=== PATIENT | female | born 1970 | race Caucasian/White ===

== ENCOUNTER 2023-08-21 06:39 | Day surgery (SDC) | payer OTHER, SELFPAY ==
[2023-08-06 08:28] VITALS: BMI 32.8
[2023-08-06 13:21] VITALS: BMI 32.9
[2023-08-21 07:15] VITALS: BP 126/95; PULSE 71; RESP 20; TEMP 36.7; O2SAT 100
--- NOTE | 2023-08-21 07:22 | PM.HPGS ---
History of Present Illness History of Present Illness Consent: Risks, benefits, and alternatives have been discussed and questions answered. Patient agrees to proceed with procedure. Chief complaint: positive cologuard test Narrative: Crystal York is a 53 year old female presents for screening colonoscopy. Patient recently found to have positive Cologuard test. Patient denies abdominal pain. She has had no bleeding. Family history noncontributory. Review of Systems Review of Systems: Review of systems noncontributory. [facility] Family History Family History Sibling Patient's brother is in good health Mother Family history of liver disease, Onset Age: 57 Patient's mother is , Onset Age: 57 Father Patient's father is , Onset Age: 38 Social History Social History Smoking status: Never smoker Second hand tobacco smoke exposure: No Alcohol intake: current Alcohol use details: glass of wine daily Substance use: never Substance use type: does not use Lack of Transportation: No Lack of Food: Never True Current Housing: I Have Housing Concerned About Future Housing: No Difficulty Paying Gas/Electric Bills: No Difficulty Paying for Meds: No Currently Unemployed: No Education: Bachelor's Degree Difficulty w/ Childcare or Family Care: No Living arrangements: with family Spiritual care concerns: No Meds Home Medications and Allergies Home Medications Medication Instructions Recorded Confirmed Type No Home Medications 08/06/23 08/06/23 History Allergies Allergy/AdvReac Type Severity Reaction Status Date / Time Penicillins Allergy Intermediate rash and Verified 08/06/23 13:19 itching Exam Narrative: Physical exam reveals patient to be alert. Vital signs stable. HEENT exam is unremarkable. Patient is anicteric. Lungs are clear to auscultation and to percussion. Heart is without murmur or extra sounds. Abdomen sounds are present soft nontender with no organomegaly. Digital external rectal exam normal. Assessment and Plan Assessment and plan (1) Positive colorectal cancer screening using Cologuard test: Code(s): R19.5 - Other fecal abnormalities Status: Acute Assessment and Plan: Patient with positive Cologuard test. For this reason screening colonoscopy will be performed. This report follows separately.
--- NOTE | 2023-08-21 07:29 | WPDANESEPPF ---
Anes - Initial Pre Proc Eval Procedure: Operation Date: 08/21/23 08:30 Proposed Procedures p Diagnostic Colonoscopy - Dru Casiano MD Date/Time: 08/21/23 07:29 Surgeon: Dru Casiano MD Pre Op Diagnosis: positive cologuard test Patient Data Age: 53 Gender: F Height: 1.63 m Weight: 87 kg Allergies Allergy/AdvReac Type Severity Reaction Status Date / Time Penicillins Allergy Intermediate rash and Verified 08/06/23 13:19 itching Home Medications Medication Instructions Recorded Confirmed Type No Home Medications 08/06/23 08/06/23 History Patient hx anesthesia problems: none Family hx anesthesia problems: none Results Review: All pre-operative results and documents have been reviewed as part of the pre-operative evaluation. [facility] Past Medical History Medical History (Updated 08/21/23 @ 07:29 by Karsten Briceno MD) Obesity Family History Family History Sibling Patient's brother is in good health Mother Family history of liver disease, Onset Age: 57 Patient's mother is , Onset Age: 57 Father Patient's father is , Onset Age: 38 Social History Social History Smoking status: Never smoker Second hand tobacco smoke exposure: No Alcohol intake: current Alcohol use details: glass of wine daily Substance use: never Substance use type: does not use Lack of Transportation: No Lack of Food: Never True Current Housing: I Have Housing Concerned About Future Housing: No Difficulty Paying Gas/Electric Bills: No Difficulty Paying for Meds: No Currently Unemployed: No Education: Bachelor's Degree Difficulty w/ Childcare or Family Care: No Living arrangements: with family Spiritual care concerns: No Anes - Eval Final PreProcedure Day of Procedure 08/21/23 07:29 Patient weight: obese Heart: regular rate and rhythm Lungs: clear to auscultation Airway: Mallampati scale class II Neurological: alert and oriented Last oral intake: >/= 8 hours ASA classification: II Emergent: no Anesthetic plan: proceed Anesthesia type and monitoring: general GIVS and standard monitoring Results Review: All pre-operative results and documents have been reviewed as part of the pre-operative evaluation. Informed Consent: The patient's anesthetic plan and its attendant risks and benefits were discussed with the patient/family/POA. Questions were solicited and answers provided to the satisfaction of the patient/family/POA.
[2023-08-21] MEDS: LACTATED RINGERS 1,000 ML 150 ML IV CONT (08:01)
[2023-08-21 08:57] VITALS: BP 122/70; PULSE 67; RESP 16; O2SAT 99
[2023-08-21 09:07] VITALS: BP 122/95; PULSE 58; RESP 16; O2SAT 100
[2023-08-21 09:17] VITALS: BP 112/84; PULSE 62; RESP 16; O2SAT 100
--- NOTE | 2023-08-21 09:26 | WPDANESPN ---
Anes - Prog Note Post-Op Date/Time: 08/21/23 09:26 Cardiovascular status: normal Respiratory status: normal Airway patency: baseline Mental status: baseline Post-Op hydration status: normal Vital Signs: Last Vital Signs Temp 36.7 C 08/21/23 07:15 Pulse 62 08/21/23 09:17 Resp 16 08/21/23 09:17 BP 112/84 08/21/23 09:17 Pulse Ox 100 08/21/23 09:17 O2 Del Method Room Air 08/21/23 09:17 Pain Score (VAS): 0/10 I/O: Intake & Output 08/20/23 08/21/23 08/21/23 23:59 07:59 15:59 Intake Total 550 Balance 550 Patient Feedback: Patient satisfied with anesthetic care.
== END 2023-08-21 09:32 | disposition home or self-care (01) ==
PROVIDERS: PCP Internal Medicine; Visit Provider Internal Medicine Gastroenterology
PROC: 0DJD8ZZ Inspection of Lower Intestinal Tract, Via Natural or Artificial Opening Endoscopic (ICD-10-PCS; CPT 45378; principal; 2023-08-21 08:30)
DX: R19.5 Other fecal abnormalities (principal); K57.30 Diverticulosis of large intestine without perforation or abscess without bleeding; K64.8 Other hemorrhoids
CPT/HCPCS: 45378

== ENCOUNTER 2024-02-04 08:50 | Emergency (ER) | payer OTHER, SELFPAY ==
--- NOTE | ~2024-02-04 | XR_ITS ---
XR chest 2V Ordering provider: Mike Powell APRN History: 53 years Female with . sob, cough 2 1/2 weeks, chest congestion . Comparison: None. FINDINGS: MEDIASTINUM: The cardiac silhouette is not enlarged. LUNGS: No effusions or pneumothorax. Opacification the right lung bases with prominent markings bilat erally suggestive of early pneumonia. OTHER: No free air under the diaphragm. IMPRESSION: Right basal pneumonia. Reviewed, dictated and finalized at location A. IMPRESSION: Right basal pneumonia.
[2024-02-04 09:00] VITALS: BP 130/81; PULSE 86; RESP 18; TEMP 36.4; O2SAT 98
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
== END 2024-02-04 09:39 | disposition home or self-care (01) ==
PROVIDERS: Emergency Provider Nurse Practitioner Family
DX: L73.9 Follicular disorder, unspecified (principal); J01.90 Acute sinusitis, unspecified; J18.9 Pneumonia, unspecified organism; E66.9 Obesity, unspecified; Z68.30 Body mass index [BMI] 30.0-30.9, adult
CPT/HCPCS: 71046; 99213; G0463

== ENCOUNTER 2024-07-05 09:36 | Emergency (ER) | payer OTHER, SELFPAY ==
[2024-07-05 10:03] VITALS: BP 128/84; PULSE 91; RESP 16; TEMP 36.8; O2SAT 99
--- NOTE | 2024-07-05 10:33 | ED.URI ---
HPI - URI/Sore Throat General Chief Complaint: Upper Respiratory Infection Stated Complaint: sinus symptoms Time Seen by Provider: 07/05/24 10:34 Source: patient and RN notes reviewed Mode of arrival: ambulatory Limitations: no limitations History of Present Illness HPI Narrative: 54 y/o female presented for c/o nasal congestion and drainage, and starting to go ?into the chest. ? Symptom onset 3 days. Denies shortness of breath, wheezing, nausea, vomiting, diarrhea, fevers or chills. Took a dose of Mucinex. She states ?I usually do not take meds because I do not like to. Reports concern for bronchitis. MD elicited complaint: cough Related Data Allergies Allergy/AdvReac Type Severity Reaction Status Date / Time Penicillins AdvReac Mild rash and Verified 07/05/24 10:33 itching Review of Systems Review of Systems: per HPI [facility] Past Medical History Medical History Obesity Family History Family History Sibling Patient's brother is in good health Mother Family history of liver disease, Onset Age: 57 Patient's mother is , Onset Age: 57 Father Patient's father is , Onset Age: 38 Social History Social History Smoking status: Never smoker Second hand tobacco smoke exposure: No Alcohol intake: current Alcohol use details: glass of wine daily Substance use: never Substance use type: does not use Lack of Transportation: No Lack of Food: Never True Current Housing: I Have Housing Concerned About Future Housing: No Difficulty Paying Gas/Electric Bills: No Difficulty Paying for Meds: No Currently Unemployed: No Education: Bachelor's Degree Difficulty w/ Childcare or Family Care: No Living arrangements: with family Spiritual care concerns: No Exam Narrative: GENERAL: well-appearing, nontoxic EYES: PERRLA, conjunctivae clear ENT: Mucous membranes moist. TMs pearly hamilton with dull light reflex bilaterally; no tragal tenderness. Oropharynx erythematous without lesions or exudate, no drooling, no hoarseness, no trismus, uvula midline. No tripod positioning, muffled voice, soft palate or pharyngeal wall bulging NECK: Supple. No lymphadenopathy CHEST: Clear to auscultation, breath sounds equal. HEART: Regular rate and rhythm. No murmur heard. SKIN: Warm, dry NEURO: Alert and oriented x3. PSYCH: Normal mood and affect Course Course Emergency Course: Patient is aware of diagnosis, understands and agrees to treatment plan. Anticipatory guidance given. Patient agrees to follow-up as directed and is aware of reasons to seek care at the emergency department. Portions of this record may have been created with voice recognition software Level of Care: Express Care Visit Vital Signs Vital signs: Vital Signs Temperature 98.2 F 07/05/24 10:03 Pulse Rate 91 07/05/24 10:03 Respiratory Rate 16 07/05/24 10:03 Blood Pressure 128/84 07/05/24 10:03 Pulse Oximetry 99 07/05/24 10:03 Temperature 98.2 F 07/05/24 10:03 Pulse Rate 91 07/05/24 10:03 Respiratory Rate 16 07/05/24 10:03 Blood Pressure 128/84 07/05/24 10:03 Pulse Oximetry 99 07/05/24 10:03 reviewed MDM - URI/Sore Throat MDM Narrative Medical decision making narrative: Discussed physical exam findings, negative flu and COVID. Patient is very concerned for bronchitis. Rx steroid sent. Advised follow-up with PCP.. Advised supportive measures and signs/symptoms to go to the ER. Pt is appropriate for outpt treatment and f/u. Differential Diagnosis Differential diagnosis: Likely upper respiratory infection, sinusitis, viral infection, bronchitis, influenza and pharyngitis Discharge Plan Discharge Clinical Impression: Upper respiratory infection Patient Disposition: Home, Self-Care Condition: Stable Instructions: Upper Respiratory Infection (ED) Additional Instructions: Flu and COVID negative. If symptoms are due to viral illness, it cannot be treated with an antibiotic. Viral illnesses can last 10-14 days. Recommendations: Flonase spray and Zyrtec (or Claritin/Alejandra) over the counter Cough syrup may cause drowsiness; avoid driving or take it at night time. Tylenol 1000mg every 8 hours as needed for pain Symptomatic treatment includes: rest, fluids, and increase humidity of the air at home. Follow up with your primary care provider in 1 week. Go to the ER for worsening symptoms or concerns. Patient Language: Sami Prescriptions: New methylprednisolone [Medrol (Santiago)] 4 mg tablets,dose pack See Rx Instructions .ROUTE .COMPLEX Qty: 21 0RF Rx Instructions: orally per package directions No Action doxycycline monohydrate 100 mg capsule 100 mg PO BID 7 Days Qty: 14 0RF albuterol sulfate 90 mcg/actuation HFA aerosol inhaler 2 puff inhalation Q4-6H PRN (Reason: shortness of breath or wheezing) 30 Days Qty: 8.5 0RF cefpodoxime 200 mg tablet 200 mg PO BID 7 Days Qty: 14 0RF Rx Instructions: must administer with a meal/food prednisone 20 mg tablet 40 mg PO DAILY 5 Days Qty: 10 0RF Follow-up/Referrals: Molina,Geovany Lewis DO [Primary Care Provider] - Time of Disposition: 10:42
[2024-07-05 10:36] LABS: EDCOVIDSCREEN Negative (Negative); EDINFLUASCREEN Negative (Negative); EDINFLUBSCREEN Negative (Negative)
[2024-07-05 10:36] LABS: EDCOVIDSCREEN Negative (Negative); EDINFLUASCREEN Negative (Negative); EDINFLUBSCREEN Negative (Negative)
--- OUTSIDE RECORDS SUMMARY | 2024-07-12 05:28 | XMS_ITS | Clinical Summary ---
Author Organization [facility] Address [address] [place] [address]. [place], [place] [id number] [place] [id number] Care Team Providers Care Extractor And Wringer Operator Name Role Phone Geovany Auguste MD Primary Care Provider Allergies Active Allergy Reactions Criticality Noted Date Comments Penicillins Hives Low 06/03/2012 Medications vitamin D3, cholecalciferol , 1000 UNIT Tab tablet Take 1 tablet by mouth daily. Active ELDERBERRY OR Take 1 capsule by mouth daily. Active BLACK COHOSH COMPOUND OR Take 1 capsule by mouth daily. Active Active Problems Problem Noted Date Diagnosed Date Abnormal uterine bleeding 11/04/2020 Immunizations Name Administration Dates Next Due Dtap (Generic) 07/25/2020 Influenza Adult (Generic) 07/25/2020 MODERNA COVID-19 (12+) MRNA, LNP-S, PF, 100 MCG/ 0.5 ML DOSE 09/01/2020,07/28/2020 Family History Medical History Relation Comments No Known Problems Brother Alcohol/Drug Mother Relation Status Comments Brother Alive Father Mother Social History Tobacco Use Types Packs/Day Years Used Date Smoking Tobacco: Former Cigarettes 0.5 31 1 987 - 2017 Smokeless Tobacco: Never Alcohol Use Standard Drinks/Week Comments Yes 0 (1 standard drink = 0.6 oz pur e alcohol) 1 glass wine daily Humiliation, Afraid, Rape, and Kick questionnair e Answer Date Recorded Within the last year, have y ou been afraid of your partner or ex-partner? Patient declined 10/28/2020 Within the last year, have y ou been humiliated or emotionally abused in other ways by your partner or ex-partner? Patient declined 10/28/2020 Within the last year, have y ou been kicked, hit, slapped, or otherwise physically hurt by your partner or ex-partner? Patient declined 10/28/2020 Within the last year, have y ou been raped or forced to have any kind of sexual activity by your partner or ex-partner? Patient declined 10/28/2020 Social Connection and Isolation Panel [NHANES] A nswer Date Recorded In a typical week, how many times do you talk on the phone with family, friends, or neighbors? Patient declined 10/28/2020 How often do you get togethe r with friends or relatives? Patient declined 10/28/2020 How often do you attend taoist or hinduism serv ices? Patient declined 10/28/2020 Do you belong to any clubs o r organizations such as taoist groups, unions, fraternal or athletic groups, or school groups? Patient declined 10/28/2020 How often do you attend meet ings of the clubs or organizations you belong to? Patient declined 10/28/2020 Are you , , di vorced, , never , or living with a partner? Patient declined 10/28/2020 AUDIT-C Answer Date Recorded Q1: How often do you have a drink containing alc ohol? 2-3 times a week 09/05/2020 Q2: How many drinks containi ng alcohol do you have on a typical day when you are drinking? 3 or 4 09/05/2020 Q3: How often do you have si x or more drinks on one occasion? Never 09/05/2020 Overall Financial Resource Strain (CARDIA) Answe r Date Recorded How hard is it for you to pa y for the very basics like food, housing, medical care, and heating? Not hard at all 10/28/2020 PHQ-2 Answer Date Recorded PHQ-2 Score - If the patient scores above 3, please move on to questions 3-9 0 09/05/2020 [facility] - Occupational Stress Questionnaire Answer Date Recorded Do you feel stress - tense, restless, nervous, or anxious, or unable to sleep at night because your mind is troubled all the time - these days? Not at all 10/28/2020 Exercise Vital Sign Answer Date Recorde d On average, how many days pe r week do you engage in moderate to strenuous exercise (like a brisk walk)? 3 days 10/28/2020 On average, how many minutes do you engage in exercise at this level? 60 min 10/28/2020 Hunger Vital Sign Answer Date Recorded Within the past 12 months, y ou worried that your food would run out before you got the money to buy more. Never true 10/29/19 21 Within the past 12 months, t he food you bought just didn't last and you didn't have money to get more. Never true 10/28/2020 PRAPARE - Transportation Answer Date Re corded In the past 12 months, has l ack of transportation kept you from medical appointments or from getting medications? No 10/07 In the past 12 months, has l ack of transportation kept you from meetings, work, or from getting things needed for daily living? No 10/28/2020 Comments No Sex and Gender Information Value Date Recorded Sex Assigned at Not on file Legal Sex Female 6:16 PM CDT Gender Identity Not on file Sexual Orientation Not on file Last Filed Vital Signs Vital Sign Reading Time Taken Comments Blood Pressure 124/72 12/23/2020 7:34 AM CDT Pulse 72 12/23/2020 7:34 AM CDT Temperature 36.4 ??C (97.5 ??F) 12/23/2020 7:34 AM CD T Respiratory Rate 16 12/23/2020 7:34 AM CDT Oxygen Saturation 98% 12/23/2020 7:34 AM CDT Inhaled Oxygen Concentration - - Weight 77.2 kg (170 lb 3.2 oz) 12/23/2020 7:34 A M CDT Height 162.6 cm (5' 4 ) 12/23/2020 7:34 AM CDT Body Mass Index 29.21 12/23/2020 7:34 AM CDT Plan of Treatment Health Maintenance Due Date Last Done Comments Colorectal Cancer Screening Colonoscopy (10 Years) 1971 Hepatitis C 1989 Hepatitis B Vaccines (1 of 3 - 19+ 3-dose series) 1990 Cervical Cancer Screening Samm simms with HPV Testing (Age 30 to 64) Every 5 Years 2001 Cervical Cancer Screening Pa p Smear (Age 30 to 64) Every 3 Years 03/03/2017 03/03/2014 Cervical Cancer Screening wi th HPV 03/03/2017 Zoster Vaccines (1 of 2) 2021 Annual Physical 09/05/2021 09/05/2020, 09/05/2020 COVID-19 Vaccine (3 - 2023-2 5 season) 2024 09/01/2020, 07/28/2020 Influenza Adult (#1) 2024 07/25/2020 Mammogram Screening 10/05/2024 10/05/2022 DTaP, Tdap and Td Vaccines ( 2 - Tdap) 07/25/2030 07/25/2020 Meningococcal Vaccine Aged Out No mckay wali eligible based on patient's age to complete this topic Pneumococcal Vaccine: Pediatrics (0 to 5 Years) and At-Risk Patients (6 to 64 Years) Aged Out No longer eligible b ased on patient's age to complete this topic RSV Immunizations Under 20 Months Aged Out No longer eligible b ased on patient's age to complete this topic Procedures Procedure Name Priority Date/Time Associated Diagnosis Comments MG SCREENING W PAOLA ALVIN DIGI Routine 10/05/2022 8:44 AM CDT Visit for screening mammogram OUTSIDE CYTOPATH CERV/VAG INTERPRET (PAP) (SCAN ORDER) Routine 03/03/2014 12:00 AM CDT from Last 3 Months or Most Recently Relevant to Health Maintenance Results * MG SCREENING W PAOLA ALVIN DIGI (10/05/2022 8:44 AM CDT) Anatomical Region Laterality Modality Breast Bilateral Mammography 10/05/2022 5:16 PM CDT Narrative 10/05/2022 5:19 PM CDT Examination: BILATERAL SCREENING MAMMOGRAM Exam Date: ??10/05/2022 8:27 AM Clinical Indication: ??52 years ??of age female routine screening. No personal or family history of breast cancer. Comparison: Mammograms dating back to 03/30/2016. Technique: Digital CC and MLO views. Tomosynthesis imaging acquisition. Study read with the assistance of a computer-aided detection system. Tissue density:The breast tissue is heterogeneously dense, which may obscure small masses. Findings: Long interval stability of the heterogeneously dense fibroglandular pattern bilaterally. Benign-appearing calcifications and axillary lymph nodes. Long interval stability of tiny benign nodular densities within the inner right breast. Long interval stability of an irregularly shaped patch of dense fibroglandular tissue within the lower inner left breast. No suspicious masses, malignant appearing calcifications, skin thickening or other abnormalities are present. No findings of concern with computer-assisted software. IMPRESSION: No interval features to suggest malignancy. In the absence of clinical symptoms, return for annual screening due in one year. Recommendation: Routine Screening Bilateral. Assessment: ACR BI-RADS 2 - BENIGN FINDING(S) Ordered By: MARY ELLEN YU Interpreted By: Keon Krause DO, 10/05/2022 5:16 PM us Mary Ellen Yu DO MAMMO Final Resul t * PAP SMEAR (03/03/2014 12:00 AM CDT) 03/03/2014 us Documents Scanned SCANNING Final Result Performing Organization Address City/State/[facility] Co tn Phone Number [facility] from Last 3 Months or Most Recently Relevant to Health Maintenance Insurance [place] [id number] Care Teams Extractor And Wringer Operator Relationship Specialty Start Date End Date Geovany Auguste MD [address] [place] [address] PCP - General INTERNAL MEDICINE 04/07/20
--- OUTSIDE RECORDS SUMMARY | 2024-07-12 05:29 | XMS_ITS | Encounter Summary ---
Author Organization [facility] Address [address] [place] [address]. [place], [place] [id number] [place] [id number] Care Team Providers Care Turning Lathe Tender Name Role Phone Geovany Auguste MD Primary Care Provider [phone] Reason for Visit * Reason Onset Date Comments Schedule Surgery 08/30/2023 Encounter Details Date Type Department Care Team (Late st Contact Info) Description 08/30/2023 Telephone [facility] General Surgery - [place] [address], [address] [place] [address] Ari Wong MD [address] [place] [address] Schedule Surgery Social History Tobacco Use Types Packs/Day Years Used Date Smoking Tobacco: Former Cigarettes 0.5 31 2017 Smokeless Tobacco: Never Alcohol Use Standard [...] declined 10/28/2020 How often do you attend mormonism or temple serv ices? Patient declined 10/28/2020 Do you belong to any clubs o r organizations such as mormonism groups, unions, fraVerdeeco or athletic groups, or school groups? Patient [...] move on to questions 3-9 0 09/05/2020 [facility] - Occupational Stress [...] on file Sexual Orientation Not on file documented as of this encounter Progress Notes * Kandice Beaulieu RN - 08/30/2023 11:57 AM CSTSummary: schedule Attempted to contact patient regarding referral received last month. Told by patient that scheduling has already been taken care of. 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
--- OUTSIDE RECORDS SUMMARY | 2024-07-12 05:29 | XMS_ITS | Encounter Summary ---
Author Organization [facility] Address [address] [place] [address]. 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 Name Role Phone Geovany Auguste MD Primary Care Provider [phone] Reason for Visit * Auth/Cert Specialty Diagnoses / Procedures Referred By Contac t Referred To Contact Diagnoses abnormal uterine bleeding Procedures HYSTEROSCOPY, ABLATION HYSTEROSCOPY DILATATION AND CURETTAGE, NOVASURE ABLATION Referral ID Status Reason Start Date Expiration Date Visits Re quested Visits Authorized [id number] 1 1 Encounter Details Date Type Department Care Team (Late st Contact Info) Description 11/04/2020 7:30 AM CDT - 11/04/2020 8:22 AM CDT Surgery [facility] [address] [place], [place] [id number] Natalia Yu DO [address] [place], [place] [id number] HYSTEROSCOPY DILATATION AND CURETTAGE, NOVASURE ABLATION Surgery Details Date/Time Status Location OR Service Patient Class Case Class Case Type Trauma Case? 11/04/2020 7:30 AM Posted [facility] OR OR 3 Gynecology Short Stay/Outpat ient Surgery E - Elective No Panel 1 Procedure LRB Anes Op Region Wound Class Comments HYSTEROSCOPY DILATATION AND CURETTAGE, NOVASURE ABLATION N/A General Uterus Clean Contam inated Surgeon Surgeon Role Service Panel Natalia Yu DO Primary Gynecology 1 documented in this encounter Social History Tobacco Use Types Packs/Day Years Used Date Smoking Tobacco: Former Cigarettes 0.5 31 1 987 - 2018 Smokeless Tobacco: Never Alcohol Use Standard Drinks/Week [...] declined 10/28/2020 How often do you attend sikh or druze serv ices? Patient declined 10/28/2020 Do you belong to any clubs o r organizations such as sikh groups, unions, fraternal or athletic groups, or [...] move on to questions 3-9 0 09/05/2020 [facility] - Occupational Stress Questionnaire Answer Date Recorded [...] on file Sexual Orientation Not on file COVID-19 Exposure Response Date Recorded In the last month, have you been in contact with someone who was confirmed or suspected to have Coronavirus / COVID-19? No / Unsure 11/04/2020 6:06 AM CDT documented as of this encounter Last Filed Vital Signs Vital Sign Reading Time Taken Comments Blood Pressure 102/72 11/04/2020 8:15 AM CDT Pulse 69 11/04/2020 8:15 AM CDT Temperature 36.4 ??C (97.5 ??F) 11/04/2020 8:15 AM CD T Respiratory Rate 16 11/04/2020 8:15 AM CDT Oxygen Saturation 98% 11/04/2020 8:15 AM CDT Inhaled Oxygen Concentration - - Weight 80.3 kg (177 lb) 10/28/2020 9:31 AM CDT Height 162.6 cm (5' 4 ) 10/28/2020 9:31 AM CDT Body Mass Index 30.38 10/28/2020 9:31 AM CDT documented in this encounter Discharge Instructions * Discharge Instructions* Delilah Swartz RN - 11/04/2020 8:40 AM CDT Images from the original note were not included. PATIENT INSTRUCTIONS POST-ANESTHESIA IMMEDIATELY FOLLOWING SURGERY: Do not drive or operate machinery for day of surgery. Do not make any important decisions for twenty four hours after surgery or while taking narcotic pain medications or sedatives. If you develop intractable nausea and vomiting or a severe headache please notify yourdoctor immediately. FOLLOW-UP: Please make an appointment with your surgeon as instructed. You do not need to follow upwith anesthesia unless specifically instructed to do so. QUESTIONS?: Please feel free to call your physician or the hospital vendor quality supervisor at [phone] if you have any questions, and they will be happy to assist you. You may also call Outpatient surgery [phone] Saturday through Saturday 8:00am to 4:00pm. Patient Education Hysteroscopy Discharge Instructions About this topic The uterus is the female organ where the baby grows during . The uterus is also known as the womb. The womb is found in the lower belly between the bladder and the rectum. A hysteroscopy lets the doctor look inside the womb. You may need to have a hysteroscopy if your doctor is worried there is something wrong on the inside of your womb. The doctor may want to confirm other tests or get a tissue sample. The procedure may also be done if you do not want to be able to have more children. What care is needed at home? ?? Ask your doctor what you need to do when you go home. Make sure you ask questions if you do not understand what you need to do. ?? Rest for the first few days after the procedure. Avoid activities like heavy lifting and hard exercise. ?? Your doctor may put a thin flexible tube into your vagina. Ask your doctor how to care for the tube and how long the tube will be in place. ?? You may wash your vagina using soap and water. You may wash your vagina 24 hours after the surgery or when your doctor tells you. Proper washing will help prevent infection. ?? Avoid soaking in a bath or a hot tub until your doctor tells you it is safe to do so. ?? You can expect some bleeding from your vagina for a few weeks. You may use sanitary pads but nottampons. ?? Your doctor may give you a drug to help heal the lining of the womb. You may have to take the drug for a few weeks. Take the drug as ordered by your doctor. ?? You may need lubricants for sex after the procedure. Ask your doctor when it is safe for you to have sex. What follow-up care is needed? ?? Your doctor may ask you to make visits to the office to check on your progress. Be sure to keep your visits. ?? If you have a tube in your vagina, you will need to have the tube taken out. Your doctor will often want to do this in 5 to 7 days. What drugs may be needed? The doctor may order drugs to: ?? Help with pain ?? Ease cramping Will physical activity be limited? You may have to limit your activity. Ask your doctor when you may go back to your normal activitieslike working, driving, or sex. What problems could happen? ?? Not able to get if the lining of the uterus was destroyed ?? Infection ?? Small hole in the uterus ?? Cuts on the cervix ?? Heavy blood loss ?? Blood clots When do I need to call the doctor? ?? Signs of infection such as a fever of 100.4??F (38??C) or higher, chills, pain with passing urine, wound that will not heal, or anal itching. ?? Lots of blood in your sanitary pads or more than 6 soaked pads per day ?? Upset stomach, throwing up, or very bad belly pain ?? Trouble passing urine ?? Smelly green or dark yellow vaginal discharge ?? Cough, shortness of breath, trouble swallowing, or chest pain Teach Back: Helping You Understand The Teach Back Method helps you understand the information we are giving you. After you talk with the staff, tell them in your own words what you learned. This helps to make sure the staff has described each thing clearly. It also helps to explain things that may have been confusing. Before going home, make sure you can do these: ?? I can tell you about my procedure. ?? I can tell you how to care for my vagina. ?? I can tell you what I will do if I have a fever, chills, a lot of bleeding from my vagina, smelly vaginal discharge, or bad belly pain. Where can I learn more? [employer] [place] [employer] http://www.acog.org/~/media/For%20Patients/oax307.pdf?dmc=1&tk=19981985O26909690 29 Citizen [place] [employer]ro[employer] https://www.reproductivefacts.org/globalassets/rf/efkf-tni-edrpzwwghwtc/booklets fact-sheets/indian- keuz-soegqr-sci-info-booklets/booklet_laparoscopy_and_hysteroscopy.pdf [facility] https://www.nhs.uk/conditions/hysteroscopy/recovery/ Last Reviewed Date 2019-01-14 Consumer Information Use and Disclaimer This information is not specific medical advice and does not replace information you receive from your health care provider. This is only a brief summary of general information. It does NOT include all information about conditions, illnesses, injuries, tests, procedures, treatments, therapies, discharge instructions or life-style choices that may apply to you. You must talk with your health care provider for complete information about your health and treatment options. This information should not be used to decide whether or not to accept your health care provider???s advice, instructions or recommendations. Only your health care provider has the knowledge and training to provide advice that is right for you. Copyright Copyright ?? 2020 [employer] and its affiliates and/or licensors. All rights reserved. Patient Education Dilation and Curettage Discharge Instructions About this topic The uterus or womb is the organ where a baby grows when you are . You get rid of the liningof the uterus each time you have your period. Sometimes, the lining needs to be scraped out. Doctors call the procedure a dilation and curettage or a D and C. You may need to have a D and C to: ?? Remove polyps from the uterus ?? Remove a control device ?? Remove a part of the placenta after you have a baby if part of the placenta does not come out byitself ?? Empty the womb after a miscarried ?? Check the lining of the womb for diseases or infection ?? Understand why you are having heavy periods or bleeding that is not normal. You may be having pain in your pelvis or your uterus may be larger than a normal uterus. ?? Removal of molar ?? Induced Dilation means the opening to the womb or cervix is stretched. Curettage is the scraping of the lining. What care is needed at home? ?? Ask your doctor what you need to do when you go home. Make sure you understand everything the doctor says so you will know what you need to do. ?? It is normal to have vaginal bleeding for a few weeks. You may use sanitary napkins, but not tampons. ?? Ask your doctor when you may douche, use tampons, or have sexual contact. ?? Talk to your doctor about when you may take a tub bath, go swimming, or use a hot tub. ?? Talk to your doctor about when it is safe for you to go back to your normal activities like work, driving, and sex. ?? Your doctor may give you antibiotics. Take the drugs as ordered. What follow-up care is needed? ?? Your doctor may ask you to make visits to the office to check on your progress. Be sure to keep these visits. ?? Ask your doctor when you can get the results. Discuss the results with your doctor. Together youcan make a plan for further care. What drugs may be needed? The doctor may order drugs to: ?? Help with pain ?? Prevent infection Will physical activity be limited? Rest for the first few days after the procedure. Avoid strenuous activities like heavy lifting and hard workouts. What problems could happen? ?? Harm to the cervix ?? Scarring of the lining of the uterus ?? Infection ?? Bleeding ?? A hole in the uterus from the tools used during the procedure When do I need to call the doctor? ?? Signs of infection like a fever of 100.4??F (38??C) or higher, chills, pain with passing urine, or bad smelling drainage from the vagina. ?? Very bad belly pain ?? Heavy bleeding ?? Upset stomach and throwing up ?? You are not feeling better in 2 to 3 days or you are feeling worse Teach Back: Helping You Understand The Teach Back Method helps you understand the information we are giving you. After you talk with the staff, tell them in your own words what you learned. This helps to make sure the staff has described each thing clearly. It also helps to explain things that may have been confusing. Before going home, make sure you can do these: ?? I can tell you about my procedure. ?? I can tell you how much vaginal bleeding is normal and what I can use for it. ?? I can tell you what I will do if I have a bad smell coming from my vagina. Where can I learn more? [place] [employer] and [employer]necologists https://www.acog.org/Patients/FAQs/Bcbuigmi-swd-Lgshjevrk Citizen [place] Association https://americanpregnancy.org/-complications/k-cpy-z-klsvynucc-dvohb-yp scarriage/ Family Doctor https://familydoctor.org/ltuhnjew-zoopvhqee-e-c / NHS Choices http://www.nhs.uk/Conditions/Jzrbpkynrj-pzy-fchnlqyra-(DC)/Pages/Introduction.as px Last Reviewed Date 2019-03-20 Consumer Information Use and Disclaimer This information is not specific medical advice and does not replace information you receive from your health care provider. This is only a brief summary of general information. It does NOT include all information about conditions, illnesses, injuries, tests, procedures, treatments, therapies, discharge instructions or life-style choices that may apply to you. You must talk with your health care provider for complete information about your health and treatment options. This information should not be used to decide whether or not to accept your health care provider???s advice, instructions or recommendations. Only your health care provider has the knowledge and training to provide advice that is right for you. Copyright Copyright ?? 2020 [employer] and its affiliates and/or licensors. All rights reserved. Patient Education Endometrial Ablation The Basics Written by the doctors and editors at [employer] What is endometrial ablation???--??Endometrial ablation, or EA, is a procedure that makes your period much pediatric nephrologist or stops it completely. It works by causing scarring in the inner lining of the uterus (figure 1). Why might I get endometrial ablation???--??Your doctor might recommend EA if you have heavy periodsthat do not get better with other treatments, such as medicines. Signs that you have a heavy periodinclude: ?? Having a period that lasts more than 7 days ?? Having to change a pad or tampon every 1 or 2 hours ?? Passing large lumps of blood, called clots What happens during endometrial ablation???--??Before the procedure, you will get medicines that block pain. You might also get medicines to make you unconscious so you can't feel, see, or hear anything during surgery. Doctors use different techniques for EA. For most of these, the doctor puts a device into your vagina and passes it into your uterus. The device uses heat, cold, or a special kind of electrical energy to scar the lining of your uterus. Another technique is called electrosurgery. It uses a device with an electric wire loop or a roller ball to scar the lining of the uterus. What happens after endometrial ablation???--??After the surgery, you might have: ?? Cramps for 1 to 3 days ?? Light vaginal bleeding or pink vaginal discharge for 2 to 3 days In rare cases, EA causes heavy bleeding or a hole in the uterus. You will probably be able to do your normal activities 1 to 3 days after the surgery. Many people have irregular periods after the surgery. After 2 to 3 months, most people have pediatric nephrologist periods and some stop having periods completely. What if I want to get ???--??Scarring in the uterus can make unsafe for the mother or baby. You should not have this procedure if you want to get . But it is still possible to get after EA. For this reason, if you have had the procedure, you should use control afterwards. All topics are updated as new evidence becomes available and our peer review process is complete. This topic retrieved from [employer] on: Sep 06, 2020. Topic 97510 Version 7.0 Release: 29.1.3 - C29.60 ?2020??[employer] and/or its affiliates.??All rights reserved. figure 1: Female reproductive anatomy These are the internal organs that make up the female reproductive system. Graphic 19701 Version 6.0 Consumer Information Use and Disclaimer This information is not specific medical advice and does not replace information you receive from your health care provider. This is only a brief summary of general information. It does NOT include all information about conditions, illnesses, injuries, tests, procedures, treatments, therapies, discharge instructions or life-style choices that may apply to you. You must talk with your health care provider for complete information about your health and treatment options. This information should not be used to decide whether or not to accept your health care provider's advice, instructions or recommendations. Only your health care provider has the knowledge and training to provide advice that is right for you.The use of [employer] content is governed by the [employer] Terms of Use. ??2020 [employer] All rights reserved. Copyright ?2020??[employer] and/or its affiliates.??All rights reserved. Patient Education Acetaminophen and Codeine (a seet a MIN oh fen & ERICK lamar) Brand Names: US Tylenol with Codeine #3 [DSC]; Tylenol with Codeine #4 [DSC] Brand Names: Evelyn Acet Codeine 30 [DSC]; Acet Codeine 60 [DSC]; PMS- Acetaminophen/Codeine; Procet-30 [DSC]; JQCK-Izsfx-32; TEVA-Lenoltec No 4; Triatec-30; Tylenol #4 [DSC] Warning All products: ?? This drug is a strong pain drug that can put you at risk for addiction, abuse, and misuse. Misuse or abuse of this drug can lead to overdose and . Talk with your doctor. ?? This drug may cause very bad and sometimes deadly breathing problems. Call your doctor right away if you have slow, shallow, or trouble breathing. ?? The chance of very bad and sometimes deadly breathing problems may be greater when you first start this drug or anytime your dose is raised. ?? Even one dose of this drug may be deadly if it is taken by someone else or by accident, especially in children. If this drug is taken by someone else or by accident, get medical help right away. ?? This drug has acetaminophen in it. Liver problems have happened with the use of acetaminophen. Sometimes, this has led to a liver transplant or . Most of the time, liver problems happened in people taking more than 4,000 mg (milligrams) of acetaminophen in a day. People were also often taking more than 1 drug that had acetaminophen. ?? This drug has an opioid drug in it. Severe side effects have happened when opioid drugs were used with benzodiazepines, alcohol, marijuana or other forms of cannabis, or prescription or OTC drugs that may cause drowsiness or slowed actions. This includes slow or troubled breathing and . Benzodiazepines include drugs like alprazolam, diazepam, and lorazepam. Benzodiazepines may be used to treat many health problems like anxiety, trouble sleeping, or seizures. If you have questions, talk with the doctor. ?? Many drugs interact with this drug and can raise the chance of side effects like deadly breathing problems. Talk with your doctor and pharmacist to make sure it is safe to use this drug with all of your drugs. ?? Do not take with alcohol or products that have alcohol. Unsafe and sometimes deadly effects may happen. ?? Get medical help right away if you feel very sleepy, very dizzy, or if you pass out. Caregivers or others need to get medical help right away if the patient does not respond, does not answer or react like normal, or will not wake up. ?? Using this drug for a long time during may lead to withdrawal in the baby. This can be life-threatening. Talk with the doctor. ?? Do not give to a child younger than 12 years of age. Children between 12 and 18 years of age whoare very overweight or have certain other health problems like sleep apnea or other lung or breathing problems must not use this drug. If your child has been given this drug, ask the doctor for information about the benefits and risks. ?? Some children have had very bad and sometimes deadly breathing problems when using codeine aftersurgery to remove tonsils or adenoids. Do not give to a child younger than 18 years of age who has had surgery to remove tonsils or adenoids. Talk with your child's doctor. Liquid (solution): ?? Be sure that you know how to measure your dose. Dosing errors can lead to accidental overdose and . If you have any questions, talk with your doctor or pharmacist. What is this drug used for? ?? It is used to ease pain. What do I need to tell my doctor BEFORE I take this drug? ?? If you are allergic to this drug; any part of this drug; or any other drugs, foods, or substances. Tell your doctor about the allergy and what signs you had. ?? If you have any of these health problems: Lung or breathing problems like asthma, trouble breathing, or sleep apnea; high levels of carbon dioxide in the blood; or stomach or bowel block or narrowing. ?? If you are taking any of these drugs: Buprenorphine, butorphanol, linezolid, methylene blue, nalbuphine, or pentazocine. ?? If you have taken certain drugs for depression or Parkinson's disease in the last 14 days. This includes isocarboxazid, phenelzine, tranylcypromine, selegiline, or rasagiline. Very high blood pressure may happen. ?? If you have been told by your doctor that you are a rapid metabolizer of some drugs. ?? If you are breast-feeding. Do not breast-feed while you take this drug. This is not a list of all drugs or health problems that interact with this drug. Tell your doctor and pharmacist about all of your drugs (prescription or OTC, natural products, vitamins) and health problems. You must check to make sure that it is safe for you to take this drug with all of your drugs and health problems. Do not start, stop, or change the dose of any drug withoutchecking with your doctor. What are some things I need to know or do while I take this drug? ?? Tell all of your health care providers that you take this drug. This includes your doctors, nurses, pharmacists, and dentists. ?? Avoid driving and doing other tasks or actions that call for you to be alert until you see how this drug affects you. ?? To lower the chance of feeling dizzy or passing out, rise slowly if you have been sitting or lying down. Be careful going up and down stairs. ?? You will be watched closely to make sure you do not misuse, abuse, or become addicted to this drug. ?? Long-term or regular use of opioid drugs like this drug may lead to dependence. Lowering the dose or stopping this drug all of a sudden may cause a greater risk of withdrawal or other severe problems. Talk to your doctor before you lower the dose or stop this drug. You will need to follow your doctor???s instructions. Tell your doctor if you have more pain, mood changes, thoughts of suicide, or any other bad effects. ?? Avoid taking other products that have acetaminophen in them. Check labels closely. Too much acetaminophen may cause liver problems. ?? Follow the directions exactly. Do not take more acetaminophen in a day than directed. If you do not know how much acetaminophen you can take in a day, ask your doctor or pharmacist. Some people may take up to 4,000 mg (milligrams) in a day if told to do so by the doctor. Some people (like peoplewith liver problems and children) should take less acetaminophen. Call your doctor right away if you have taken too much acetaminophen in a day, even if you feel well. ?? If you are allergic to sulfites, talk with your doctor. Some products have sulfites. ?? This drug may affect certain lab tests. Tell all of your health care providers and lab workers that you take this drug. ?? Long-term use of an opioid drug may lead to lower sex hormone levels. Call your doctor if you have a lowered interest in sex, fertility problems, no menstrual period (women), or change in sex ability (men). ?? This drug may raise the chance of seizures in some people, including people who have had seizures in the past. Talk to your doctor to see if you have a greater chance of seizures while taking thisdrug. ?? Taking an opioid drug like this drug may lead to a rare but very bad adrenal gland problem. Callyour doctor right away if you have very bad dizziness or passing out, very bad upset stomach or throwing up, or if you feel less hungry, very tired, or very weak. ?? If you are 65 or older, use this drug with care. You could have more side effects. ?? The chance of very bad side effects may be higher in children. This may be more likely to happenin children who have breathing problems. Deadly breathing problems have happened with the use of codeine in some children. Talk with the doctor. ?? This drug may cause harm to the unborn baby if you take it while you are . If you are or you get while taking this drug, call your doctor right away. What are some side effects that I need to call my doctor about right away? WARNING/CAUTION: Even though it may be rare, some people may have very bad and sometimes deadly side effects when taking a drug. Tell your doctor or get medical help right away if you have any of thefollowing signs or symptoms that may be related to a very bad side effect: ?? Signs of an allergic reaction, like rash; hives; itching; red, swollen, blistered, or peeling skin with or without fever; wheezing; tightness in the chest or throat; trouble breathing, swallowing,or talking; unusual hoarseness; or swelling of the mouth, face, lips, tongue, or throat. Rarely, some allergic reactions have been life-threatening. ?? Signs of liver problems like dark urine, feeling tired, not hungry, upset stomach or stomach pain, light-colored stools, throwing up, or yellow skin or eyes. ?? Very bad dizziness or passing out. ?? Chest pain or pressure or a fast heartbeat. ?? Feeling confused. ?? Severe constipation or stomach pain. These may be signs of a severe bowel problem. ?? Not able to pass urine or change in how much urine is passed. ?? Fever, chills, or sore throat; any unexplained bruising or bleeding; or feeling very tired or weak. ?? Mood changes. ?? Trouble breathing, slow breathing, or shallow breathing. ?? Noisy breathing. ?? Breathing problems during sleep (sleep apnea). ?? Change in eyesight. ?? Seizures. ?? A severe skin reaction (Mark-Aldo syndrome/toxic epidermal necrolysis) may happen. It can cause severe health problems that may not go away, and sometimes . Get medical help right away if you have signs like red, swollen, blistered, or peeling skin (with or without fever); red or irritated eyes; or sores in your mouth, throat, nose, or eyes. ?? A severe and sometimes deadly problem called serotonin syndrome may happen if you take this drugwith certain other drugs. Call your doctor right away if you have agitation; change in balance; confusion; hallucinations; fever; fast or abnormal heartbeat; flushing; muscle twitching or stiffness; seizures; shivering or shaking; sweating a lot; severe diarrhea, upset stomach, or throwing up; or severe headache. What are some other side effects of this drug? All drugs may cause side effects. However, many people have no side effects or only have minor sideeffects. Call your doctor or get medical help if any of these side effects or any other side effects bother you or do not go away: ?? Feeling dizzy, sleepy, tired, or weak. ?? Constipation. ?? Stomach pain. ?? Upset stomach or throwing up. ?? Dry mouth. ?? Sweating a lot. ?? Headache. ?? Flushing. These are not all of the side effects that may occur. If you have questions about side effects, call your doctor. Call your doctor for medical advice about side effects. You may report side effects to your national health agency. You may report side effects to the FDA at . You may also report side effects at https://www.fda.gov/medwatch. How is this drug best taken? Use this drug as ordered by your doctor. Read all information given to you. Follow all instructionsclosely. All products: ?? Take with or without food. Take with food if it causes an upset stomach. ?? Drink lots of noncaffeine liquids unless told to drink less liquid by your doctor. ?? Do not take this drug with other strong pain drugs or if you are using a pain patch without talking to your doctor first. ?? If you have been taking this drug for a long time or at high doses, it may not work as well and you may need higher doses to get the same effect. This is known as tolerance. Call your doctor if this drug stops working well. Do not take more than ordered. Liquid (solution): ?? Measure liquid doses carefully. Use the measuring device that comes with this drug. If there is none, ask the pharmacist for a device to measure this drug. ?? Do not use a household teaspoon or tablespoon to measure this drug. Doing so could lead to the dose being too high. What do I do if I miss a dose? ?? If you take this drug on a regular basis, take a missed dose as soon as you think about it. ?? If it is close to the time for your next dose, skip the missed dose and go back to your normal time. ?? Do not take 2 doses at the same time or extra doses. ?? Many times this drug is taken on an as needed basis. Do not take more often than told by the doctor. How do I store and/or throw out this drug? ?? Store at room temperature protected from light. Store in a dry place. Do not store in a bathroom. ?? Store this drug in a safe place where children cannot see or reach it, and where other people cannot get to it. A locked box or area may help keep this drug safe. Keep all drugs away from pets. ?? Throw away unused or drugs. Do not flush down a toilet or pour down a drain unless you are told to do so. Check with your pharmacist if you have questions about the best way to throw out drugs. There may be drug take-back programs in your area. General drug facts ?? If your symptoms or health problems do not get better or if they become worse, call your doctor. ?? Do not share your drugs with others and do not take anyone else's drugs. ?? Some drugs may have another patient information leaflet. If you have any questions about this drug, please talk with your doctor, nurse, pharmacist, or other health care provider. ?? This drug comes with an extra patient fact sheet called a Medication Guide. Read it with care. Read it again each time this drug is refilled. If you have any questions about this drug, please talkwith the doctor, pharmacist, or other health care provider. ?? A drug called naloxone can be used to help treat an overdose of this drug. Your doctor may ordernaloxone for you to keep with you while you take this drug. If you have questions about how to get or use naloxone, talk with your doctor or pharmacist. If you think there has been an overdose, call your poison control center or get medical care right away even if naloxone has been used. Be ready to tell or show what was taken, how much, and when it happened. Consumer Information Use and Disclaimer This information should not be used to decide whether or not to take this medicine or any other medicine. Only the healthcare provider has the knowledge and training to decide which medicines are right for a specific patient. This information does not endorse any medicine as safe, effective, or approved for treating any patient or health condition. This is only a brief summary of general information about this medicine. It does NOT include all information about the possible uses, directions, warnings, precautions, interactions, adverse effects, or risks that may apply to this medicine. This information is not specific medical advice and does not replace information you receive from the healthcare provider. You must talk with the healthcare provider for complete information about the risksand benefits of using this medicine. Last Reviewed Date 2020-02-04 Copyright ?? 2020 [employer] and its affiliates and/or licensors. All rights reserved. Patient Education Uterine Fibroids The Basics Written by the doctors and editors at [employer] What are fibroids???--??Fibroids are tough balls of muscle that form in the uterus (figure 1). The uterus, also called the womb, is the part of the body that holds a baby when a person is . People sometimes refer to fibroids as tumors. But fibroids are not a form of cancer. They are simply abnormal growths in the muscle of the uterus. What are the symptoms of fibroids???--??Fibroids often cause no symptoms at all. When they do causesymptoms, they can cause: ?? Heavy periods ?? Pain, pressure, or a feeling of fullness in the belly ?? The need to urinate often ?? Too few bowel movements (constipation) ?? Difficulty getting How are fibroids treated???--??There are several treatment options. Each option has its own pros and cons. The right treatment for you will depend on: ?? The symptoms you have ?? Your age (because most fibroids shrink or stop causing symptoms after menopause) ?? Whether you are done having children ?? Whether your fibroids cause so much bleeding that you have a condition called anemia ?? The size, number, and location of your fibroids ?? How you feel about the risks and benefits of the different options If you are thinking about treatment, ask your doctor or nurse which treatments might help you. Thenask what the risks and benefits of those options are. Ask, too, what happens if you do not have treatment. And be sure to mention whether or not you would like to have children in the future. Here are the options: ?? Medicine - The pills, patches, vaginal rings, injections, and implants used for control can all reduce how much you bleed during your period. Some types of intrauterine devices, or IUDs, can also make your periods pediatric nephrologist. Besides control, there are also other medicines that can reduce heavy bleeding. If bleeding is your main symptom, your doctor might prescribe one of these medicines. ?? Surgery to remove the fibroids - This is called myomectomy. During this operation, the doctor removes the fibroids but leaves the uterus in place. It is effective, but it is not always a permanent fix, because fibroids can come back. Myomectomy is often a good choice for people who might want to get in the future. ?? Treatment to destroy the lining of the uterus - This is called endometrial ablation. During this procedure, the doctor inserts a thin tube into the vagina, through the cervix and into the uterus. Then they use tools inserted through that tube to destroy the lining of the uterus. This procedurereduces bleeding from heavy periods. But it is not an option for everyone. It is also not appropriate for people who might want to get . ?? Treatment to cut off the blood supply to the fibroids - This is called uterine artery embolization or uterine fibroid embolization. During this procedure, the doctor inserts a thin tube into an artery in the leg and threads it up to the uterus. Then they use tiny plastic beads to block the artery that brings blood to the fibroid. After the procedure, the fibroid no longer gets blood, so itshrinks. This procedure is not appropriate for people who might want to get . ?? Surgery to remove the uterus - This is called hysterectomy. This surgery gets rid of fibroids and the problems they cause forever. If you have a hysterectomy, your fibroids cannot come back. Butyou will also not be able to get in the future. How do I choose which option is right for me???--??Your doctor will work with you to help you understand the different treatment options and how each would affect you. Then the two of you work together to choose the option that's right for you. You will need to consider how invasive each surgery is and whether you prefer surgery over taking medicines. You will also want to think about: ?? Whether you want to get in the future - If you might want to have children, medicines or myomectomy is often the best choice. If you do not want to have children, or if you are done having children, you can often choose from all the options. ?? How soon you are likely to go through menopause - Fibroid-related symptoms often go away with menopause, so your age might affect your decision about treatment. All topics are updated as new evidence becomes available and our peer review process is complete. This topic retrieved from [employer] on: Sep 06, 2020. Topic 27306 Version 12.0 Release: 29.1.3 - C29.60 ?2020??[employer] and/or its affiliates.??All rights reserved. figure 1: Fibroid locations in the uterus These figures depict the various types and locations of fibroids. A woman may have one or more typeof fibroid. Graphic 15987 Version 2.0 Consumer Information Use and Disclaimer This information is not specific medical advice and does not replace information you receive from your health care provider. This is only a brief summary of general information. It does NOT include all information about conditions, illnesses, injuries, tests, procedures, treatments, therapies, discharge instructions or life-style choices that may apply to you. You must talk with your health care provider for complete information about your health and treatment options. This information should not be used to decide whether or not to accept your health care provider's advice, instructions or recommendations. Only your health care provider has the knowledge and training to provide advice that is right for you.The use of [employer] content is governed by the [employer] Terms of Use. ??2020 [employer]. All rights reserved. Copyright ?2020??[employer] and/or its affiliates.??All rights reserved. Bess given-11/04/20 @ 9:[address] Follow up with Dr Yu next week as directed * Attachments The following attachments cannot be sent through Care Everywhere. * Hysteroscopy Discharge Instructions ([place]) * Endometrial Ablation Discharge Instructions ([place]) documented in this encounter Medications at Time of Discharge acetaminophen 500 MG tablet Take 1 tablet (500 mg total) by mouth every 6 (six) hours as needed for Pain. Ok to take with tylenol #3 30 tablet 11/04/2020 11/14/2020 acetaminophen-cod eine 300-30 MG tabletIndications :Acute Pain < 3 Day Supply Take 1 tablet by mouth every 6 (six) hours as needed for Pain. Indications: Acute Pain < 3 Day Supply 8 tablet 11/04/2020 12/23/2020 ibuprofen 600 MG tablet Take 1 tablet (600 mg total) by mouth every 6 (six) hours as needed for Pain. 30 tablet 11/04/2020 11/14/2020 documented as of this encounter H&P Notes * Natalia Yu DO - 11/04/2020 7:36 AM CDT Gynecology H&P Chief Complaint: I'm here for my D&C Subjective: Patient is a 50-year-old female here today for hysteroscopy, D&C and Novasure ablation for abnormal uterine bleeding. She has been taking Provera with some relief but will stop that after today. Past Medical History: Diagnosis Date ??? Abnormal uterine bleeding ??? Cyst of cervix ??? Fibroids uterine Past Surgical History: Procedure Laterality Date ??? DELIVERY ONLY 1989 ??? HERNIA REPAIR 1975 umbilical hernia Social History Tobacco Use ??? Smoking status: Former Smoker Packs/day: 0.50 Types: Cigarettes Start date: 1986 Quit date: 2018 Years since quittin.3 ??? Smokeless tobacco: Never Used Substance Use Topics ??? Alcohol use: Yes Frequency: 2-3 times a week Drinks per session: 3 or 4 Binge frequency: Never Comment: 1 glass wine daily Family History Problem Relation Name Age of Onset ??? Alcohol/Drug Mother ??? No Known Problems Brother No medications prior to admission. Allergies Allergen Reactions ??? Penicillins Hives Review of systems: Negative unless indicated above in the HPI. Examination: See exam from most recent office visit. Assessment: Abnormal uterine bleeding Plan: Hysteroscopy, D&C, Novasure All management options have been discussed with the patient and she patient has elected to proceed with the above mentioned surgery. Natalia Yu DO documented in this encounter OR Notes * Op Note - Natalia Yu DO - 11/04/2020 8:19 AM CDT Operative note Nohemy Alba ---- 1970 ---- [id number] ---- [id number] ----Natalia Yu DO Preop diagnosis: 1) Abnormal uterine bleeding Postop diagnosis: 1) Abnormal uterine bleeding 2) Cervical fibroid Procedure: Hysteroscopy, dilation and curettage with Novasure ablation Findings: Normal appearing vulva and vaginal canal. Medium sized cervix with a single posterior cervical fibroid. The fibroid was approximately 2 cm across, midline and there was some posterior fornix behind it. Should she need a hysterectomy, I believe a v-care uterine manipulator would still be able to encompass the cervix. Uterus sounded to 9cm, cervical length 5, endometrial cavity width 4.3cm. Device activated for 1 min 58 seconds at 95 carroll. Surgeon: Natalia Yu DO Anesthesia: TIVA Complications: None Specimen: Endometrial curettings EBL: < 5 ml Fluids: 750 ml Urine: Voided preop Procedure: The patient was taken to the operating room after informed consent was obtained and she was placed under general anesthesia. She was prepped and draped in the normal sterile fashion in dorsal lithotomy position in [facility]. Exam revealed the above mentioned findings. A weighted speculum was placed in the posterior fornix of the vagina and the cervix visualized using an anterior retractor. A single tooth tenaculum was used to grasp the anterior lip of the cervix. Delia dilators were used to dilate the cervical os to 14mm. A paracervical block using marcaine with epinephrine was performed. The hysteroscope was then introduced and survey of the endometrial cavity revealed the above mentioned findings. The hysteroscope was passed up and over the cervical fibroid in order to enter the endometrial cavity. The hysteroscope was then removed. A sharp curette was used to scrape the endometrial lining and a small amount of tissue was returnedand sent for pathology. The Novasure device was then introduced into the endometrial cavity and thecavity length and width were confirmed. The cervical collar was advanced and the cavity checked forintegrity. The device was then activated for a total time of 1 min 58 sec at 95 carroll. The device was then allowed to cool within the cavity and then retracted. Blood clots and fluid were wiped from the vaginal canal and the tenaculum was removed. The tenaculum sites were hemostatic, the weighted speculum was then removed. The patient was taken to the recovery room in stable condition. All counts were correct x2. Natalia Yu DO,11/04/2020,8:19 AM ? ? ? documented in this encounter Plan of Treatment Not on file documented as of this encounter Procedures Procedure Name Priority Date/Time Associated Diagnosis Comments PATHOLOGY Routine 11/04/2020 8:02 AM CDT HYSTEROSCOPY, ABLATION 11/04/2020 7:29 AM CDT abnormal uterine bleeding TEST URINE Routine 11/04/2020 6:15 AM CDT documented in this encounter Results * Pathology (11/04/2020 8:02 AM CDT) COPATH REPORT ?[facility] ? [address] ?[place], [place] [address] ? [phone] ? Department of Pathology ? Pathology Report ? Surgical Pathology Report Patient Name: NOHEMY ALBA ? : 1970 (Age: 50) ? Location: [facility] Gender: F ?Collected Date: 11/04/2020 Med Rec #: [id number] ?Date Received: 11/04/2020 Date Reported: 11/09/2020 Provider: NATALIA YU DO Specimen(s) Endometrial curettings Final Pathologic Diagnosis ENDOMETRIUM, CURETTAGE: ? - ? INACTIVE ENDOMETRIUM WITH TUBAL METAPLASIA AND BREAKDOWN ?- ? NO EVIDENCE OF DYSPLASIA, ENDOMETRIAL HYPERPLASIA, OR MALIGNANCY COMMENT Electronically Signed Out ? JUSTIN GARCIA MD Pathologist OJL:pb Microscopic Description: Microscopic examination substantiates the above captioned diagnosis. ??Multiple foci of squamous metaplasia with slight nuclear atypia are identified within endocervical epithelium, including benign microglandular hyperplasia. ??p16 and Ki-67 immunohistochemistry stains are performed to evaluate the squamous atypia. p16 shows patchy staining and is interpreted as negative. ??The Ki-67 stain shows a proliferation index of approximately 1-2% in cells away from the basal layer of the squamous epithelium and is not increased. The Immunohistochemical (IHC) stain controls perform as expected. These tests were developed and the performance characteristics determined by: [place], [place]; [place], [place]; [employer]. [place], [place]; and/or [employer] [place], [place]. They have not been cleared or approved by the [place] Food and Drug Administration (FDA). The FDA has determined that such clearance or approval is not necessary. These tests are used for clinical purposes. Prognostic and predictive testing should be interpreted in the context of additional and/or histopathological findings. Clinical History Abnormal uterine bleeding Gross Description The specimen is received in a single formalin-filled container and is additionally labeled with the patient's name and date of along with endometrial curettings , collected 11/04/2020 and consists of a Telfa pad containing multiple pink-kenney tissue fragments, some of which are hemorrhagic measuring in aggregate 1 x 1 x 0.3 cm. ??These are wrapped and submitted in a single cassette. ??CC/llc ?? :pb Billing Fee Code(s): 90252, 90352, [address] [facility] Tissue specimen (specimen) VAGINAL STRUCTURE / Unknown 11/04/2020 8:02 AM CDT Natalia Elian DO PATHOLOGY/CYTOLOGY ORDERABL ES Final Result Performing Organization Address [facility] de Phone Number [facility] [address] [place] [address], [place] [phone] * TEST URINE (11/04/2020 6:15 AM CDT) PREG TEST NEGATIVE NEGATIVE 11/04/2020 6:39 AM CDT [facility] SPECIFIC GRAVITY (U) 1.010 >1.009 11/04/2020 6:39 AM CDT [facility] URINE SPECIMEN FROM URETHRA / Unknown 11/04/2020 6:15 AM CDT us Natalia Knobeloch DO URINE ORDERABLES Final Resu lt Performing Organization Address [facility] de Phone Number [facility] [address] [place] [address], [place] [phone] documented in this encounter Visit Diagnoses Not on filedocumented in this encounter Administered Medications Inactive Administered Medications - up to 3 most recent administrations Medication Order MAR Action Action Date Dose Rate Site acetaminophen (TYLENOL) tablet 1,000 mg 1,000 mg, Oral, Once, 1 dose, On Sat11/04/20 at 0630, Maximum dose of acetaminophen is 4000 mg from all sources in 24 hours., Pre-Op Given 11/04/2020 6:45 AM CDT 1,000 mg BUpivacaine (PF) (MARCAINE) 0.5 % injection As needed, Starting on Sat11/04/20 at 0759, Until Sat11/04/20 at 0807, Intra-Op Given 11/04/2020 7:59 AM CDT 10 mLs Vaginal diazePAM (VALIUM) injection 2 mg 2 mg, Intravenous, Once as needed, Muscle Spasms, 1 dose, Starting on Sat11/04/20 at 0838, Until Sat11/04/20 at 1132, PACU diphenhydrAMINE (BENADRYL) injection 12.5 mg 12.5 mg, Intravenous, Once as needed, Nausea, Vomiting, 1 dose, Starting on Sat11/04/20 at 0838, Until Sat11/04/20 at 1132, For IV administration, give no faster than 25 mg/min. If more than one antiemetic is ordered, use in this order: ondansetron, diphenhydramine, metoclopramide, haloperidol, promethazine. If nausea / vomiting still not controlled, move to next ordered medication., PACU diphenhydrAMINE (BENADRYL) injection 25 mg 25 mg, Intravenous, Once as needed, Itching, 1 dose, Starting on Sat11/04/20 at 0838, Until Sat11/04/20 at 1132, For IV administration, give no faster than 25 mg/min., PACU ePHEDrine injection 10 mg 10 mg, Intravenous, Once as needed, SBP less than 80 mmHg or DBP less than 40 mmHg. If blood pressure not improved with IV bolus and then notify anesthesia., 1 dose, Starting on Sat11/04/20 at 0838, Until Sat11/04/20 at 1132, PACU fentaNYL (SUBLIMAZE) injection 25 mcg 25 mcg, Intravenous, Every 5 min PRN, Moderate pain (Scale 4 - 7), Moderate pain, 4 doses, Starting on Sat11/04/20 at 0838, Until Sat11/04/20 at 1132, Maximum cumulative dose 100 mcg. Do not administer if patient is overly sedated, SpO2 less than 90%, or Respiratory Rate less than 12. If more than one IV analgesic is ordered per pain level, use in this order: fentaNYL, morphine, HYDROmorphone. If desired pain control is not reached, move to next ordered medication at next dosing interval., PACU fentaNYL (SUBLIMAZE) injection 50 mcg 50 mcg, Intravenous, Every 5 min PRN, Severe pain (Scale 8 - 10), 5 doses, Starting on Sat11/04/20 at 0838, Until Sat11/04/20 at 1132, Maximum cumulative dose 250 mcg. Do not administer if patient is overly sedated, SpO2 less than 90%, or Respiratory Rate less than 12. If more than one IV analgesic is ordered per pain level, use in this order: fentaNYL, morphine, HYDROmorphone. If desired pain control is not reached, move to next ordered medication at next dosing interval., PACU HYDROcodone-acetaminophen (NORCO) 5-325 MG tablet 1 tablet 1 tablet, Oral, Once, 1 dose, On Sat11/04/20 at 0900, Maximum dose of acetaminophen is 4000 mg from all sources in 24 hours. Given 11/04/2020 8:39 AM CDT 1 tablet ibuprofen (MOTRIN) tablet 600 mg 600 mg, Oral, Once as needed, Mild pain (Scale 1 - 3), 1 dose, Starting on Sat11/04/20 at 0838, Until Sat11/04/20 at 1132, PACU ketorolac (TORADOL) injection 15 mg 15 mg, Intravenous, Once as needed, Moderate pain (Scale 4 - 7), Breakthrough pain, 1 dose, Starting on Sat11/04/20 at 0838, Until Sat11/04/20 at 1132, Recommended dose for patients over 65 years of age, or CrCl less than 30 mL/min, or weight less than 50 kg. IF okay with surgeon and not given in OR. For IV administration, give over 15 seconds., PACU lactated ringers infusion at 10 mL/hr, Intravenous, Continuous, Starting on Sat11/04/20 at 0630, Until Sat11/04/20 at 1132, Not to be given to patients with end stage renal disease or dialysis. Infuse at TKO rate, Pre-Op Rate/Dose Change 11/04/2020 8:15 AM CDT 10 mL/hr New Bag 11/04/2020 6:48 AM CDT New Bag 11/04/2020 6:42 AM CDT 10 mL/hr metoclopramide (REGLAN) injection 10 mg 10 mg, Intravenous, Once as needed, Nausea, Vomiting, 1 dose, Starting on Sat11/04/20 at 0838, Until Sat11/04/20 at 1132, Administer slowly over 3-4 minutes. Do not administer to bowel surgery patients. If more than one antiemetic is ordered, use in this order: ondansetron, diphenhydramine, metoclopramide, haloperidol, promethazine. If nausea / vomiting still not controlled, move to next ordered medication., PACU ondansetron (ZOFRAN) injection 4 mg 4 mg, Intravenous, Once as needed, Nausea, Vomiting, 1 dose, Starting on Sat11/04/20 at 0838, Until Sat11/04/20 at 1132, Administer slowly over 3-4 minutes. If more than one antiemetic is ordered, use in this order: ondansetron, diphenhydramine, metoclopramide, haloperidol, promethazine. If nausea / vomiting still not controlled, move to next ordered medication., PACU documented in this encounter Active and Recently Administered Medications Times are shown in CDT. Scheduled Medication Order 11/02/2020 11/03/2020 11/04/2020 acetaminophen (TYLENOL) tablet 1,000 mg (COMPLETED) 1,000 mg, Oral, Once, 1 dose, On Sat11/04/20 at 0630, Maximum dose of acetaminophen is 4000 mg from all sources in 24 hours., Pre-Op 0645 (Given - Provid er: Delilah Swartz RN) HYDROcodone-acetaminophen (NORCO) 5-325 MG tablet 1 tablet (COMPLETED) 1 tablet, Oral, Once, 1 dose, On Sat11/04/20 at 0900, Maximum dose of acetaminophen is 4000 mg from all sources in 24 hours. 0839 (Given - Provid er: Delilah Swartz RN) Continuous Medication Order 11/02/2020 11/03/2020 11/04/2020 lactated ringers infusion at 10 mL/hr, Intravenous, Continuous, Starting on Sat11/04/20 at 0630, Until Sat11/04/20 at 1132, Not to be given to patients with end stage renal disease or dialysis. Infuse at TKO rate, Pre-Op 0642 (New Bag - Prov ider: Delilah Swartz RN)0648 (New Bag - Provider: Cari Waggoner CRNA)0800 (Anesthesia Volume Adjustment - Provider: Cari Waggoner CRNA)0815 (Rate/Dose Change - Provider: Delilah Swartz RN)0907 (Infusion Stop Time - Provider: Delilah Swartz RN) PRN Medication Order 11/02/2020 11/03/2020 11/04/2020 BUpivacaine (PF) (MARCAINE) 0.5 % injection (CANCELED) As needed, Starting on Sat11/04/20 at 0759, Until Sat11/04/20 at 0807, Intra-Op 0759 (Given - Provid er: Natalia Yu DO) diazePAM (VALIUM) injection 2 mg 2 mg, Intravenous, Once as needed, Muscle Spasms, 1 dose, Starting on Sat11/04/20 at 0838, Until Sat11/04/20 at 1132, PACU diphenhydrAMINE (BENADRYL) injection 12.5 mg 12.5 mg, Intravenous, Once as needed, Nausea, Vomiting, 1 dose, Starting on Sat11/04/20 at 0838, Until Sat11/04/20 at 1132, For IV administration, give no faster than 25 mg/min. If more than one antiemetic is ordered, use in this order: ondansetron, diphenhydramine, metoclopramide, haloperidol, promethazine. If nausea / vomiting still not controlled, move to next ordered medication., PACU diphenhydrAMINE (BENADRYL) injection 25 mg 25 mg, Intravenous, Once as needed, Itching, 1 dose, Starting on Sat11/04/20 at 0838, Until Sat11/04/20 at 1132, For IV administration, give no faster than 25 mg/min., PACU ePHEDrine injection 10 mg 10 mg, Intravenous, Once as needed, SBP less than 80 mmHg or DBP less than 40 mmHg. If blood pressure not improved with IV bolus and then notify anesthesia., 1 dose, Starting on Sat11/04/20 at 0838, Until Sat11/04/20 at 1132, PACU fentaNYL (SUBLIMAZE) injection 25 mcg 25 mcg, Intravenous, Every 5 min PRN, Moderate pain (Scale 4 - 7), Moderate pain, 4 doses, Starting on Sat11/04/20 at 0838, Until Sat11/04/20 at 1132, Maximum cumulative dose 100 mcg. Do not administer if patient is overly sedated, SpO2 less than 90%, or Respiratory Rate less than 12. If more than one IV analgesic is ordered per pain level, use in this order: fentaNYL, morphine, HYDROmorphone. If desired pain control is not reached, move to next ordered medication at next dosing interval., PACU fentaNYL (SUBLIMAZE) injection 50 mcg 50 mcg, Intravenous, Every 5 min PRN, Severe pain (Scale 8 - 10), 5 doses, Starting on Sat11/04/20 at 0838, Until Sat11/04/20 at 1132, Maximum cumulative dose 250 mcg. Do not administer if patient is overly sedated, SpO2 less than 90%, or Respiratory Rate less than 12. If more than one IV analgesic is ordered per pain level, use in this order: fentaNYL, morphine, HYDROmorphone. If desired pain control is not reached, move to next ordered medication at next dosing interval., PACU ibuprofen (MOTRIN) tablet 600 mg 600 mg, Oral, Once as needed, Mild pain (Scale 1 - 3), 1 dose, Starting on Sat11/04/20 at 0838, Until Sat11/04/20 at 1132, PACU ketorolac (TORADOL) injection 15 mg 15 mg, Intravenous, Once as needed, Moderate pain (Scale 4 - 7), Breakthrough pain, 1 dose, Starting on Sat11/04/20 at 0838, Until Sat11/04/20 at 1132, Recommended dose for patients over 65 years of age, or CrCl less than 30 mL/min, or weight less than 50 kg. IF okay with surgeon and not given in OR. For IV administration, give over 15 seconds., PACU metoclopramide (REGLAN) injection 10 mg 10 mg, Intravenous, Once as needed, Nausea, Vomiting, 1 dose, Starting on Sat11/04/20 at 0838, Until Sat11/04/20 at 1132, Administer slowly over 3-4 minutes. Do not administer to bowel surgery patients. If more than one antiemetic is ordered, use in this order: ondansetron, diphenhydramine, metoclopramide, haloperidol, promethazine. If nausea / vomiting still not controlled, move to next ordered medication., PACU ondansetron (ZOFRAN) injection 4 mg 4 mg, Intravenous, Once as needed, Nausea, Vomiting, 1 dose, Starting on Sat11/04/20 at 0838, Until Sat11/04/20 at 1132, Administer slowly over 3-4 minutes. If more than one antiemetic is ordered, use in this order: ondansetron, diphenhydramine, metoclopramide, haloperidol, promethazine. If nausea / vomiting still not controlled, move to next ordered medication., PACU documented in this encounter Care Teams Brasswind Instrument Repairer Relationship Specialty Start Date End Date Geovany Auguste MD [address] [place] [address] PCP - General INTERNAL MEDICINE 04/07/20 documented as of this encounter
--- OUTSIDE RECORDS SUMMARY | 2024-07-12 05:29 | XMS_ITS | Encounter Summary ---
Author Organization [facility] Address [address] [place] [address]. [place], [place] [address] [place] [address] Care Team Providers Care Sculpture Conservator Name Role Phone Geovany Auguste MD Primary Care Provider [phone] Encounter Details Date Type Department Care Team (Latest Contact Info) Description 07/15/2020 Travel Social History Tobacco Use Types Packs/Day Years Used Date Smoking Tobacco: Never Assessed Comments Unknown Sex and Gender Information Value Date Recorded Sex Assigned at Not on file Legal Sex Female 6:16 PM CDT Gender Identity Not on file Sexual Orientation Not on file COVID-19 Exposure Response Date Recorded In the last month, have you been in contact with someone who was confirmed or suspected to have Coronavirus / COVID-19? No / Unsure 07/15/2020 7:11 AM CHARGE HISTOTECHNOLOGIST documented as of this encounter Plan of Treatment Not on file documented as of this encounter Visit Diagnoses Not on filedocumented in this encounter Care Teams Sculpture Conservator Relationship Specialty Start Date End Date Geovany Auguste MD [address] [place] [address] PCP - General INTERNAL MEDICINE 04/07/20 documented as of this encounter
--- OUTSIDE RECORDS SUMMARY | 2024-07-12 05:29 | XMS_ITS | Encounter Summary ---
Author Organization [facility] Address [address] [place] [address]. [place], [place] [id number] [place] [address] Care Team Providers Care Field Merchandiser Name Role Phone Geovany Auguste MD Primary Care Provider [phone] Encounter Details Date Type Department Care Team (Latest Contact Info) Description 08/29/2020 Travel Social History Tobacco Use Types Packs/Day [...] have Coronavirus / COVID-19? No / Unsure 08/29/2020 10:43 AM IMPLEMENTATION ANALYST documented as of this encounter Plan of Treatment Not on file documented as of this encounter Visit Diagnoses Not on filedocumented in this encounter Care Teams Field Merchandiser Relationship Specialty Start Date End Date Geovany Auguste MD [address] [place] [address] PCP - General INTERNAL MEDICINE 04/07/20 documented as of this encounter
--- OUTSIDE RECORDS SUMMARY | 2024-07-12 05:29 | XMS_ITS | Encounter Summary ---
Author Organization [facility] Address [address] [place] [address]. [place], [place] [id number] [place] [address] Care Team Providers Care Specialty Sales Representative Name Role Phone Unavailable Primary Care Provider Unavailabl e Encounter Details Date Type Department Care Team (Latest Contact Info) Description 06/03/2012 Abstract [facility] Keon Marquez, DO [address] [place] [address] Social History Tobacco Use Types Packs/Day Years Used Date Smoking Tobacco: Never Assessed Comments Unknown Sex and Gender Information Value Date Recorded Sex Assigned at Not on file Legal Sex Female 6:16 PM CDT Gender Identity Not on file Sexual Orientation Not on file documented as of this encounter Last Filed Vital Signs Vital Sign Reading Time Taken Comments Blood Pressure 110/80 06/03/2012 1:47 PM HOUSE SUPERVISOR Pulse 75 06/03/2012 1:47 PM HOUSE SUPERVISOR Temperature - - Respiratory Rate - - Oxygen Saturation - - Inhaled Oxygen Concentration - - Weight 72.1 kg (159 lb) 06/03/2012 1:47 PM HOUSE SUPERVISOR Height 165.1 cm (5' 5 ) 06/03/2012 1:47 PM HOUSE SUPERVISOR Body Mass Index 26.46 06/03/2012 1:47 PM HOUSE SUPERVISOR documented in this encounter Progress Notes * PAT Matta - 06/03/2012 1:45 PM CST Reason For Visit Reason For Visit: Acute Visit Chief Complaint 1. Diarrhea Chief Complaint Free Text: pt here c/o diarrhea and no appetite since Saturday. She denies fever, nausea and vomitting. eg,rma History of Present Illness HPI Free Text: Reports having onset of diarhhea this past Saturday while she was driving home from [place]. Denies any associated fever, no n/v, no abdominal pain. Reports decreased appetite. Review of Systems Focused-Female: See HPI for pertinent positives. Active Problems 1. Viral Gastroenteritis 008.8 Past Medical History Patient indicats no significant past medical history. Surgical History Patient indicates no past surgical history. Family History Patient indicates no significant family history of disease. Social History ?? Being A Social Drinker ?? Current Smoker 305.1 Current Meds 1. Multivitamins CAPS; Therapy: (Recorded:03Jun2012) to Recorded; Dispense: 0 Days ; #: Sufficient CAPS; Refill: 0; Record; Last Updated By: Leilani Mcneal Allergies 1. Penicillins Vitals Vital Signs [Data Includes: Current Encounter] 03Jun2012 01:47PM Temperature 98.1 F Heart Rate 75 Respiration 18 Systolic 110 Diastolic 80 BMI Calculated 26.49 BSA Calculated 1.79 Height 5 ft 5 in Weight 159 lb O2 Saturation 99 Physical Exam Constitutional General appearance: No acute distress, well appearing and well nourished. Eyes Conjunctiva and lids: No swelling, erythema or discharge. Pupils and irises: Equal, round and reactive to light. Ears, Nose, Mouth, and Throat External inspection of ears and nose: Normal. Otoscopic examination: Tympanic membranes translucent with normal light reflex. Canals patent without erythema. Oropharynx: Normal with no erythema, edema, exudate or lesions. Pulmonary Respiratory effort: No increased work of breathing or signs of respiratory distress. Auscultation of lungs: Clear to auscultation. Cardiovascular Palpation of heart: Normal PMI, no thrills. Auscultation of heart: Normal rate and rhythm, normal S1 and S2, without murmurs. Examination of extremities for edema and/or varicosities: Normal. Abdomen Abdomen: Non-tender, no masses. Liver and spleen: No hepatomegaly or splenomegaly. Lymphatic Palpation of lymph nodes in neck: No lymphadenopathy. Musculoskeletal Gait and station: Normal. Digits and nails: Normal without clubbing or cyanosis. Inspection/palpation of joints, bones, and muscles: Normal. Skin Skin and subcutaneous tissue: Normal without rashes or lesions. Neurologic Cranial nerves: Cranial nerves 2-12 intact. Reflexes: 2+ and symmetric. Sensation: No sensory loss. Psychiatric Orientation to person, place, and time: Normal. Mood and affect: Normal. Assessment 1. Viral Gastroenteritis 008.8 Plan 1. Ciprofloxacin HCl 500 MG Oral Tablet; TAKE 1 TABLET TWICE DAILY; Therapy: 03Jun2012 to (Evaluate:[id number]) Requested for: 03Jun2012; Last Rx:03Jun2012; Edited Ordered; For: Viral Gastroenteritis (008.8); Rx By: Gifty Walters; Dispense: 7 Days ; #:14 Tablet; Refill: 0; Verified Transmission to [id number] 2. MetroNIDAZOLE 500 MG Oral Tablet; TAKE 1 TABLET 3 TIMES DAILY UNTIL GONE; Therapy: 03Jun2012 to (Evaluate:10Jun2012) Requested for: 03Jun2012; Last Rx:03Jun2012; Edited Ordered; For: Viral Gastroenteritis (008.8); Rx By: Gifty Walters; Dispense: 7 Days ; #:21 Tablet; Refill: 0; Verified Transmission to [facility][id number] Discussion/Summary Discussion Summary Free Text: Rx Cipro 500mg bid x 7 days Rx Flagyl 500mg tid x 7 days Take meds with food Follow up prn Signatures Electronically signed by : Gifty Walters NP; Jun 03 2012 3:33PM (Author) E SUPERVISOR documented in this encounter Plan of Treatment Not on file documented as of this encounter Visit Diagnoses Not on filedocumented in this encounter
--- OUTSIDE RECORDS SUMMARY | 2024-07-12 05:29 | XMS_ITS | Encounter Summary ---
Author Organization [facility] Address [address] [place] [address]. [place], [place] [id number] [place] [address] Care Team Providers Care Line Mover Name Role Phone Geovany Auguste MD Primary Care Provider [phone] Encounter Details Date Type Department Care Team (Late st Contact Info) Description 05/30/2021 Patient Self-Triage [facility] DEPARTMENT [address] [place] [address] [facility] Provider Social History Tobacco Use Types Packs/Day Years [...] declined 10/28/2020 How often do you attend yazidism or rastafari serv ices? Patient declined 10/28/2020 Do you belong to any clubs o r organizations such as yazidism groups, unions, fraternal or athletic groups, or [...] move on to questions 3-9 0 09/05/2020 [facility] - Occupational Stress [...] on file documented as of this encounter Plan of Treatment Not on file documented as of this encounter Visit Diagnoses Not on filedocumented in this encounter Care Teams Line Mover Relationship Specialty Start Date End Date Geovany Auguste MD [address] [place] [address] PCP - General INTERNAL MEDICINE 04/07/20 documented as of this encounter
--- OUTSIDE RECORDS SUMMARY | 2024-07-12 05:29 | XMS_ITS | Encounter Summary ---
Author Organization [facility] Address [address] [place] [address]. [place], [place] [address] [place] [address] Care Team Providers Care Software Engineer Web Services Name Role Phone Geovany Auguste MD Primary Care Provider [phone] Reason for Visit * Auth/Cert Specialty Diagnoses / Procedures Referred By Contac t Referred To Contact Diagnoses abnormal uterine bleeding Procedures HYSTEROSCOPY, ABLATION HYSTEROSCOPY DILATATION AND CURETTAGE, NOVASURE ABLATION Referral ID Status Reason Start Date Expiration Date Visits Re quested Visits Authorized [id number] 1 1 Encounter Details Date Type Department Care Team (Late st Contact Info) Description 11/04/2020 7:29 AM CDT Anesthesia Event [facility] [address] [place] [address] Cari Waggoner CRNA 1 [place] [address] [phone] (Work) Nhan Weeks MD [address] [facility] [address] [place] [address] Anesthesia Record Procedure Summary Procedure Name Responsible Anesthesiologist Anesthesia Start Time Anesthesia Stop Time HYSTEROSCOPY DILATATION AND CURETTAGE, NOVASURE ABLATION (Uterus) Cari Waggoner CRNA 11/04/20 0729 11/04/20 0805 Events Date Time Event Comment 11/04/2020 0641 0641 AN Anesthesia Prepped 0645 Quick Note PO Tylenol give n pre-operatively. 0657 AN CYBER THREAT ANALYST Prepped 0729 An Start Patient ID and consent checked and patient reassessed. test negative. 0729 An Start Data 0732 Face Mask Applied 0734 Quick Note Induction. The patient was re-evaluated immediately before anesthesia induction. 0735 Anesthesia Ready 0748 an basilia now Procedure start . 0749 An Block Surgeon block. 0801 Quick Note Emergence. 0804 Face Mask Removed 0805 Post Anesthetic Care Handoff I completed my handoff to the receiving nurse during which we: 1. Identified the patient 2. Identified the responsible provider 3. Reviewed the pertinent medical history 4. Discussed the surgical course 5. Reviewed intra-op anesthesia management and issues during anesthesia 6. Set expectations for post-procedure period 7. Allowed opportunity for questions and acknowledgement of understanding. 0805 an stop data 0805 An Stop Meds Name Total lidocaine (PF) (XYLOCAINE) 1% injection 75 mg propofol (DIPRIVAN) 200 mg/20 mL injecti on 266.6 mg ketorolac (TORADOL) 30 mg/mL injection 3 0 mg dexamethasone (DECADRON) 4mg/mL injectio n 4 mg ondansetron (ZOFRAN) 4 mg/2 mL injection 4 mg midazolam 2 mg/2 mL injection 2 mg fentaNYL (SUBLIMAZE) 100 mcg/2 mL inject ion 100 mcg lactated ringers infusion 700 mL * Agents Name O2 N2O Air Ancillary O2 * Blood No blood administrations on file. Lines, Drains, and Airways Type Details Placement Removal Peripheral IV Placement Date: 10/08 ; Placement Time: 06; Placed Outside of This Facility?: No; Size: 20 G; Orientation: Distal, Posterior, Right; Location: Forearm; Site Prep: Chlorhexidine; Local Anesthetic: Injectable; Insertion attempts: 1; Ultrasound-guided Placement?: No; Patient Tolerance: Tolerated well; Removal Date: 11/04/20; Removal Time: 09; Removal Reason: Patient Discharged 11/04/20 0642 by Delilah Swartz RN 11/04/20 09 by Delilah Swartz RN documented in this encounter Social History Tobacco [...] declined 10/28/2020 How often do you attend methodist or protestant serv ices? Patient declined 10/28/2020 Do you belong to any clubs o r organizations such as methodist groups, unions, fraternal or athletic groups, or [...] move on to questions 3-9 0 09/05/2020 [place] [facility] Occupat ional Health - Occupational Stress [...] AM CDT documented as of this encounter OR Notes * Anesthesia Postprocedure Evaluation - Nhan Weeks MD - 11/04/2020 9:28 AM CDT Anesthesia Post-op Note Crystal Alba Procedure(s): HYSTEROSCOPY DILATATION AND CURETTAGE, NOVASURE ABLATION (N/A Uterus) Anesthesia type: general Vitals: 11/04/20 0900 BP: 111/74 Vitals: 11/04/20 0900 Pulse: 61 Vitals: 11/04/20 0900 Resp: 16 Vitals: 11/04/20 0815 Temp: 36.4 ??C Vitals: 11/04/20 0900 SpO2: 99% Patient Location: Phase II/Outpatient Level of Consciousness: awake, alert and oriented Pain Management: adequate analgesia Airway Patency: patent Respiratory Status: acceptable Cardiovascular Status: acceptable Post-Op Nausea: none Postoperative Hydration: euvolemic Complications: no anesthesia complication * Anesthesia Postprocedure Evaluation - Nhan Weeks MD - 11/04/2020 8:41 AM CDT Anesthesia Post-op Note Crystal Babatunde Alba Procedure(s): HYSTEROSCOPY DILATATION AND CURETTAGE, NOVASURE ABLATION (N/A Uterus) Anesthesia type: general Vitals: 11/04/20 0845 BP: 115/77 Vitals: 11/04/20 0845 Pulse: 65 Vitals: 11/04/20 0845 Resp: 16 Vitals: 11/04/20 0815 Temp: 36.4 ??C Vitals: 11/04/20 0845 SpO2: 100% Patient Location: PACU Level of Consciousness: awake, alert and oriented Pain Management: adequate analgesia Airway Patency: patent Respiratory Status: acceptable Cardiovascular Status: acceptable Post-Op Nausea: none Postoperative Hydration: euvolemic Complications: no anesthesia complication * Anesthesia Preprocedure Evaluation - Nhan Weeks MD - 11/03/2020 9:05 AM CDT Anesthesia ROS/MED History Reviewed: Patient summary , Nursing notes , ECG, Family history anesthesia, Anesthesia history , Medications , Labs , Images/Studies Pre-Anesthetic State: alert, awake and responds appropriately Pulmonary (+) smoker Cardiovascular neg cardio ROS Neuro/Psych (+) substance use, (alcohol use) GI/Hepatic/Renal neg GI/hepatic/renal ROS Endo/Other (+) obese GENERAL COMMENTS Past Medical History: Abnormal Uterine Bleeding Past Surgical History: 1989: DELIVERY ONLY 1975: [facility]IA REPAIR Physical Evaluation Airway Mallampati: II TM Distance: >3 FB Neck ROM: normal Dental Pulmonary Pulmonary exam normal Breath sounds clear to auscultation Cardiovascular Rhythm: regular Rate: normal Cardiovascular exam normal Other findings: Height 5' 4 (1.626 m), weight 80.3 kg (177 lb), last menstrual period 09/20/2020. No results for input(s): WBC, RBC, HGB, HCT, PLT, NA, K, CL, CO2, AGAP, BUN, CR, BUNCREATININ, GFRNON, GFR, GLU, CA in the last 72 hours. Anesthesia Plan ASA 2 Intravenous Induction Anesthesia type: general Discussed potential risks of General Anesthesia including but not limited to corneal abrasion, visual impairment or visual loss, mouth injury, dental damage, sore throat, hoarseness, esophageal injury, awareness under anesthesia, nerve injury due to positioning, aspiration, pneumonia, stroke, cardiac event, adverse drug reactions and . Informed Consent Anesthetic plan and risks discussed with patient of whom consent was obtained. . documented in this encounter Plan of Treatment Not on file documented as of this encounter Visit Diagnoses Not on filedocumented in this encounter Administered Medications Inactive Administered Medications - up to 3 most recent administrations Medication Order MAR Action Action Date Dose Rate Site dexamethasone (DECADRON) injection PRN, Starting on Sat11/04/20 at 0735, Until Sat11/04/20 at 0806, Anesthesia Intra-Op Given 11/04/2020 7:35 AM CDT 4 mg fentaNYL (SUBLIMAZE) injection PRN, Starting on Sat11/04/20 at 0734, Until Sat11/04/20 at 0806, Anesthesia Intra-Op Given 11/04/2020 7:45 AM CDT 50 mcg Given 11/04/2020 7:34 AM CDT 50 mcg ketorolac (TORADOL) injection PRN, Starting on Sat11/04/20 at 0759, Until Sat11/04/20 at 0806, Anesthesia Intra-Op Given 11/04/2020 7:59 AM CDT 30 mg lactated ringers infusion at 10 mL/hr, Intravenous, Continuous, Starting on Sat11/04/20 at 0630, Until Sat11/04/20 at 1132, Not to be given to patients with end stage renal disease or dialysis. Infuse at TKO rate, Pre-Op Rate/Dose Change 11/04/2020 8:15 AM CDT 10 mL/hr New Bag 11/04/2020 6:48 AM CDT New Bag 11/04/2020 6:42 AM CDT 10 mL/hr lidocaine (PF) (XYLOCAINE) 1 % injection PRN, Starting on Sat11/04/20 at 0734, Until Sat11/04/20 at 0806, Anesthesia Intra-Op Given 11/04/2020 7:34 AM CDT 75 mg midazolam (VERSED) injection PRN, Starting on Sat11/04/20 at 0729, Until Sat11/04/20 at 0806, Anesthesia Intra-Op Given 11/04/2020 7:29 AM CDT 2 mg ondansetron (ZOFRAN) injection PRN, Starting on Sat11/04/20 at 0730, Until Sat11/04/20 at 0806, Anesthesia Intra-Op Given 11/04/2020 7:30 AM CDT 4 mg propofol (DIPRIVAN) IV bolus Continuous PRN, Starting on Sat11/04/20 at 0734, Until Sat11/04/20 at 0806, Anesthesia Intra-Op Rate/Dose Change 11/04/2020 7:55 AM CDT 100 mcg/kg/min 48.2 mL/hr Rate/Dose Change 11/04/2020 7:49 AM CDT 120 mcg/kg/min 57. 8 mL/hr New Bag 11/04/2020 7:34 AM CDT 140 mcg/kg/min 67.5 mL/h r documented in this encounter Care Teams Software Engineer Web Services Relationship Specialty Start Date End Date Geovany Auguste MD [address] [place] [address] PCP - General INTERNAL MEDICINE 04/07/20 documented as of this encounter
--- OUTSIDE RECORDS SUMMARY | 2024-07-12 05:29 | XMS_ITS | Encounter Summary ---
Author Organization [facility] Address [address] [place] [address]. [place], [place] [address] [place] [address] Care Team Providers Care Financial Intern Name Role Phone Geovany Auguste MD Primary Care Provider [phone] Encounter Details Date Type Department Care Team (Latest Contact Info) Description 07/29/2020 Travel Social History Tobacco Use Types Packs/Day [...] have Coronavirus / COVID-19? 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
--- OUTSIDE RECORDS SUMMARY | 2024-07-12 05:29 | XMS_ITS | Encounter Summary ---
Author Organization [facility] Address [address] [place] [address]. [place], [place] [address] [place] [address] Care Team Providers Care Spouter Name Role Phone Geovany Auguste MD Primary Care Provider [phone] Encounter Details Date Type Department Care Team (Latest Contact Info) Description 11/04/2020 Travel Social History Tobacco Use Types Packs/Day [...] declined 10/28/2020 How often do you attend yazdanism or latter day serv ices? Patient declined 10/28/2020 Do you belong to any clubs o r organizations such as yazdanism groups, unions, fraternal or athletic groups, or [...] move on to questions 3-9 0 09/05/2020 [facility] [place] [facility] Occupat ional Health - Occupational Stress [...] AM CDT documented as of this encounter Plan of Treatment Not on file documented as of this encounter Visit Diagnoses Not on filedocumented in this encounter Care Teams Spouter Relationship Specialty Start Date End Date Geovany Auguste MD [address] [place] [address] PCP - General INTERNAL MEDICINE 04/07/20 documented as of this encounter
--- OUTSIDE RECORDS SUMMARY | 2024-07-12 05:29 | XMS_ITS | Encounter Summary ---
Author Organization [facility] Address [address] [place] [address]. [place], [place] [address] [place] [address] Care Team Providers Care Video Game Engineer Name Role Phone Geovany Auguste MD Primary Care Provider [phone] Encounter Details Date Type Department Care Team (Latest Contact Info) Description 09/05/2020 Travel Social History Tobacco Use Types Packs/Day Years Used Date Smoking Tobacco: Former Cigarettes 0.5 31 2017 Smokeless Tobacco: Never Alcohol Use Standard Drinks/Week Comments Yes 0 (1 standard drink = 0.6 oz pur e alcohol) AUDIT-C Answer Date Recorded Q1: How often do you have a drink containing alc ohol? 2-3 times a week 09/05/2020 Q2: How many drinks containi ng alcohol do you have on a typical day when you are drinking? 3 or 4 09/05/2020 Q3: How often do you have si x or more drinks on one occasion? Never 09/05/2020 PHQ-2 Answer Date Recorded PHQ-2 Score - If the patient scores above 3, please move on to questions 3-9 0 09/05/2020 Comments No Sex and Gender Information Value Date Recorded Sex Assigned at Not on file Legal Sex Female 6:16 PM CDT Gender Identity Not on file Sexual Orientation Not on file COVID-19 Exposure Response Date Recorded In the last month, have you been in contact with someone who was confirmed or suspected to have Coronavirus / COVID-19? 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
--- OUTSIDE RECORDS SUMMARY | 2024-07-12 05:29 | XMS_ITS | Encounter Summary ---
Author Organization [facility] Address [address] [place] [address]. [place], [place] [address] [place] [address] Care Team Providers Care Resident Care Assistant Name Role Phone Geovany Auguste MD Primary Care Provider [phone] Encounter Details Date Type Department Care Team (Latest Contact Info) Description 11/01/2020 Travel Social History Tobacco Use Types Packs/Day [...] How often do you attend methodist or congregation serv ices? Patient declined 10/28/2020 Do you [...] move on to questions 3-9 0 09/05/2020 [facility] [place] [facility] Occupat ional Health - Occupational Stress [...] have Coronavirus / COVID-19? No / Unsure 11/01/2020 8:48 AM CDT documented as of this encounter Plan of Treatment Not on file documented as of this encounter Visit Diagnoses Not on filedocumented in this encounter Additional Health Concerns Infection Onset Date Last Indicated Resolved Time COVID-19 Rule Out 11/01/2020 11/01/2020 11/02/2020 6:16 PM CDT documented as of this encounter Care Teams Resident Care Assistant Relationship Specialty Start Date End Date Geovany Auguste MD [address] [place] [address] PCP - General INTERNAL MEDICINE 04/07/20 documented as of this encounter
--- OUTSIDE RECORDS SUMMARY | 2024-07-12 05:29 | XMS_ITS | Encounter Summary ---
Author Organization [facility] Address [address] [place] [address]. [place], [place] [address] [place] [address] Care Team Providers Care It Operations Manager Name Role Phone Geovany Auguste MD Primary Care Provider [phone] Encounter Details Date Type Department Care Team (Latest Contact Info) Description 10/17/2020 3:43 PM CDT - 10/17/2020 11:59 PM T Hospital Encounter [facility] [address] [place], [place] [id number] Delilah Gavin, GAG WRITER [address] [place] [address] Discharge Disposition: Home or Self Care (Routine Discharge) Social History Tobacco Use Types Packs/Day Years [...] have Coronavirus / COVID-19? No / Unsure 10/17/2020 3:42 PM CDT documented as of this encounter Plan of Treatment Not on file documented as of this encounter Procedures Procedure Name Priority Date/Time Associated Diagnosis Comments TSH W/REFLEX Routine 10/17/2020 3:48 PM CDT Excessive or frequent menstruation HEMOGLOBIN, GLYCOSYLATED Routine 10/17/2020 3:48 PM CDT Excessive or frequent menstruation LH, LUTEINIZING HORMONE Routine 10/17/2020 3:48 PM CDT Excessive or frequent menstruation FSH, FOLLICLE STIM HORMONE Routine 10/17/2020 3:48 PM CDT Excessive or frequent menstruation ESTRADIOL Routine 10/17/2020 3:48 PM CDT Excessive or frequent menstruation HCG QUANT (SERUM)-CHORIONIC GONADOTROPIN Routine 10/17/2020 3:48 PM CDT Excessive or frequent menstruation CBC W/DIFF AUTOMATED Routine 10/17/2020 3:48 PM CDT Excessive or frequent menstruation PROLACTIN Routine 10/17/2020 3:48 PM CDT Excessive or frequent menstruation documented in this encounter Results * HEMOGLOBIN, GLYCOSYLATED (10/17/2020 3:48 PM CDT) HGB A1C 4.9 <5.7 % 10/17/2020 7:32 PM CDT [facility] Comment: ADA GUIDELINES 2010 5.7 TO 6.4% INCREASED RISK OF DIABETES > OR = 6.5% CONSISTENT WITH DIABETES TESTING PERFORMED AT [facility] [address] [place], [place] ??[address] 10/17/2020 3:48 PM CDT Delilah Gavin GAG WRITER LABORATORY Final Resul t Performing Organization Address [facility]/ZIP Co de Phone Number [facility] [address] [place] [address], [place] [phone] * LH, LUTEINIZING HORMONE (10/17/2020 3:48 PM CDT) Luteinizing Hormone 6.7 MIU/ML 10/17/2020 8:06 PM CDT [facility] Comment: REFERENCE RANGES FOR FEMALES: ??FOLLICULAR ? 2.4-12.6 ??MID-CYCLE ? 14.0-95.6 ??LUTEAL ? 1.0-11.4 ??POSTMENOPAUSAL ? 7.7-58.5 10/17/2020 3:48 PM CDT Delilah Gavin GAG WRITER LABORATORY Final Resul t Performing Organization Address [facility] Co de Phone Number [facility] [address] [place] [address], [place] [phone] * ESTRADIOL (10/17/2020 3:48 PM CDT) ESTRADIOL (E2) 55 see note pg/mL 10/21/2020 7:20 AM CDT [employer] [facility] Comment: Unable to flag abnormal result(s), please refer ?? to reference range(s) below: Females: Follicular Phase: 19 - 144 pg/mL Mid-Cycle: ?64 - 357 pg/mL Luteal Phase: ? 56 - 214 pg/mL Post-Menopausal: ? <= 31 pg/mL Reference range established on post-pubertal patient population. No pre-pubertal reference range established using this assay. For any patients for whom low Estradiol levels are anticipated (e.g. males, pre-pubertal children, and hypogonadal/post-menopausal females), the [employer] Estradiol, Ultrasensitive, LCMSMS assay is recommended (order code [id number]). Please note: Patients being treated with the drug fulvestrant [Faslodex(R)] have demonstrated significant interference in immunoassay methods for estradiol measurement. The cross reactivity could lead to falsely elevated estradiol test results leading to an inappropriate clinical assessment of estrogen status. [employer] order code [id number], Ultrasensitive LC/MS/MS demonstrates negligible cross reactivity with fulvestrant. Test Performed by [facility], [employer], [address] [place], [place] Avinash Calderón M.D., Ph.D., Director of Laboratories , [place] [id number] 10/17/2020 3:48 PM CDT Delilah Gavin GAG WRITER LABORATORY Final Resul t Performing Organization Address [facility] Co de Phone Number [email or web address] [id number] [place] [address], [place] [phone] * FSH, FOLLICLE STIM HORMONE (10/17/2020 3:48 PM CDT) FSH 19.4 MIU/ML 10/17/2020 8:07 PM CDT [facility] Comment: REFERENCE RANGES FOR FEMALES: ??FOLLICULAR ? 3.5-12.5 ??MID-CYCLE ?4.7-21.5 ??LUTEAL ? 1.7-7.7 ??POSTMENOPAUSAL ?25.8-134.8 10/17/2020 3:48 PM CDT Delilah Gavin GAG WRITER LABORATORY Final Resul t Performing Organization Address City/[facility]/ZIP Co de Phone Number [facility] [address] [place] [address], [place] [phone] * PROLACTIN (10/17/2020 3:48 PM CDT) PROLACTIN 11.8 NG/ML 10/17/2020 8:05 PM CDT [facility] Comment:FEMALE REFERENCE RAN GE (NON-): 4.8-23.3 10/17/2020 3:48 PM CDT Delilah Gavin GAG WRITER LABORATORY Final Resul t Performing Organization Address [facility] Co de Phone Number [facility] [address] [place] [address], [place] [phone] * TSH W/REFLEX (10/17/2020 3:48 PM CDT) TSH 1.527 0.358 - 3.74 uIU/ML 10/17/2020 4:58 PM CDT [facility] Comment: HIGH DOSES OF BIOTIN MAY INTERFERE WITH THIS TEST RESULT. CORRELATION TO CLINICAL HISTORY AND PRESENTATION RECOMMENDED. FREE T4 NOT INDICATED 10/17/2020 3:48 PM CDT Delilah Gavin GAG WRITER LABORATORY Final Resul t Performing Organization Address City/[facility]/ZIP Co de Phone Number [facility] [address] [place] [address], [place] [phone] * (ABNORMAL) CBC W/DIFF AUTOMATED (10/17/2020 3:48 PM CDT) WBC 5.8 4.8 - 10.8 x10'3/uL 10/17/2020 4:23 PM CDT [facility] RBC 3.57(L) 4.10 - 5.10 x10'6/uL 10/17/2020 4:23 PM CDT [facility] HGB 10.7(L) 12.0 - 16.0 G/DL 10/17/2020 4:23 PM CDT [facility] HCT 33.3(L) 36 - 46 % 10/17/2020 4:23 PM CDT [facility] MCV 93.3 80 - 100 FL 10/17/2020 4:23 PM CDT [facility] MCH 30.0 26.0 - 34.0 PG 10/17/2020 4:23 PM CDT [facility] MCHC 32.1 31.0 - 37.0 G/DL 10/17/2020 4:23 PM CDT [facility] RDW 15.1(H) 11.5 - 14.5 % 10/17/2020 4:23 PM CDT [facility] PLT 278 150 - 350 x10'3/uL 10/17/2020 4:23 PM T [facility] CBC COMMENT AUTOMATED RBC MORPHOLOGY AND PLATELET EVALUATION NORMAL 10/17/2020 4:23 PM CDT [facility] NEUTROPHILS % 52.0 50 - 70 % 10/17/2020 4:23 PM CDT [facility] LYMPHOCYTES % 28.8 18 - 42 % 10/17/2020 4:23 PM CDT [facility] MONOCYTES % 8.9 2.0 - 11.0 % 10/17/2020 4:23 PM CDT [facility] EOSINOPHILS 9.4(H) 1.0 - 3.0 % 10/17/2020 4:23 PM CDT [facility] BASOPHILS 0.9 0.0 - 1.0 % 10/17/2020 4:23 PM CDT [facility] ABS. NEUTROPHILS TOTAL 3.03 1.69 - 7.81 x10'3/uL 10/17/2020 4:23 PM CDT [facility] 10/17/2020 3:48 PM CDT Delilah Gavin GAG WRITER LABORATORY Final Resul t [facility] [address] [place] [address], * HCG QUANT (SERUM)-CHORIONIC GONADOTROPIN (10/17/2020 3:48 PM CDT) HCG QUANTITATIVE <1 MIU/ML 10/18/19 4:58 PM CDT [facility] Comment: WEEKS OF ? REFERENCE RANGES NON- FEMALE ?0-6 ? 0.2 - 1 ? 5 - 50 ? 1 - 2 ? 50 - 500 ? 2 - 3 ? 100 - 5000 ? 3 - 4 ? 500 - 10,000 ? 4 - 5 ? 1000 - 50,000 ? 5 - 6 ? 10,000 - 100,000 ? 6 - 8 ? 15,000 - 200,000 ? 2 - 3 MONTHS ?10,000 - 100,000 10/17/2020 3:48 PM CDT us Delilah Gavin GAG WRITER LABORATORY Final Resul t [facility] [address] [place] [address], documented in this encounter Visit Diagnoses Diagnosis Excessive or frequent menstruation documented in this encounter Care Teams It Operations Manager Relationship Specialty Start Date End Date Geovany Auguste MD [address] [place], [place] [phone] PCP - General INTERNAL MEDICINE 04/07/20 documented as of this encounter
--- OUTSIDE RECORDS SUMMARY | 2024-07-12 05:29 | XMS_ITS | Encounter Summary ---
Author Organization [facility] Address [address] [place] [address]. [place], [place] [address] [place] [address] Care Team Providers Care Shaker Screen Operator Name Role Phone Geovany Auguste MD Primary Care Provider [phone] Encounter Details Date Type Department Care Team (Late st Contact Info) Description 10/17/2020 [employer] Message [address] [place] [address] Kelly Marshall NP RE: Question Social History Tobacco Use Types Packs/Day Years Used Date Smoking Tobacco: Former Cigarettes 0.5 31 1 987 2017 Smokeless Tobacco: Never Alcohol Use Standard [...] have Coronavirus / COVID-19? No / Unsure 10/18/2020 3:29 PM CDT documented as of this encounter Plan of Treatment Not on file documented as of this encounter Visit Diagnoses Not on filedocumented in this encounter Additional Health Concerns Infection Onset Date Last Indicated Resolved Time COVID-19 Rule Out 11/01/2020 11/01/2020 11/02/2020 6:16 PM CDT documented as of this encounter Care Teams Shaker Screen Operator Relationship Specialty Start Date End Date Geovany Auguste MD [address] [place] [address] PCP - General INTERNAL MEDICINE 04/07/20 documented as of this encounter
--- OUTSIDE RECORDS SUMMARY | 2024-07-12 05:29 | XMS_ITS | Encounter Summary ---
Author Organization [facility] Address [address] [place] [address]. [place], [place] [address] [place] [address] Care Team Providers Care Bullet Assembly Press Setter Operator Name Role Phone Geovany Auguste MD Primary Care Provider [phone] Reason for Visit * Reason Comments Gi Problem pt c/o stomach cramp ing and diarrhea for the last two weeks, yogurt has helped Encounter Details Date Type Department Care Team (Late st Contact Info) Description 12/23/2020 7:40 AM CDT Office Visit [facility] [address] [place] [address] Brooklyn Santamaria NP Gi Problem (pt c/o stomach cramping and diarrhea for the last two weeks, yogurt has helped) Social History Tobacco Use Types Packs/Day Years [...] declined 10/28/2020 How often do you attend pentecostal or pentecostal serv ices? Patient declined 10/28/2020 Do you belong to any clubs o r organizations such as pentecostal groups, unions, fraternal or athletic groups, or [...] move on to questions 3-9 0 09/05/2020 [facility] - Occupational [...] have Coronavirus / COVID-19? No / Unsure 12/23/2020 7:04 AM CDT documented as of this encounter [...] Mass Index 29.21 12/23/2020 7:34 AM CDT documented in this encounter Progress Notes * Brooklyn Santamaria NP - 12/23/2020 7:40 AM CDT Reason for Visit: Gi Problem (pt c/o stomach cramping and diarrhea for the last two weeks, yogurt has helped) History of Present Illness: Kendy is a 50 year old female who presents today for complaints of diarrhea and abdominal cramping that started 2 weeks ago. She states she had a decreased appetite and she was being awakened in the middle the night with abdominal cramping and diarrhea. She states that she started eating yogurt twice a day and it has really made an improvement, she states the diarrhea has resolved and her crampingis better. She states that she has been avoiding fried foods, eating smaller meals, bland foods, and increasing her water intake. She wanted to be checked today because she and her are leaving for vacation this morning. Abdominal Pain This is a new problem. The current episode started 1 to 4 weeks ago. The onset quality is sudden. The problem occurs intermittently. The problem has been resolved. The pain is located in the generalized abdominal region. The patient is experiencing no pain. The quality of the pain is cramping. The abdominal pain does not radiate. Associated symptoms include diarrhea. Pertinent negatives include no constipation, dysuria, fever, frequency, headaches, nausea or vomiting. Nothing aggravates the pain. The pain is relieved by bowel movements. Treatments tried: yogurt. The treatment provided moderate relief. ROS: Review of Systems Constitutional: Negative. Negative for chills, fever and malaise/fatigue. HENT: Negative. Negative for congestion, sinus pain and sore throat. Eyes: Negative. Negative for discharge and redness. Respiratory: Negative. Negative for cough, sputum production and shortness of breath. Cardiovascular: Negative. Negative for chest pain and leg swelling. Gastrointestinal: Positive for abdominal pain and diarrhea. Negative for blood in stool, constipation, heartburn, nausea and vomiting. Genitourinary: Negative. Negative for dysuria, flank pain and frequency. Musculoskeletal: Negative. Skin: Negative. Negative for itching and rash. Neurological: Negative. Negative for dizziness, tingling and headaches. Endo/Heme/Allergies: Negative. Medications: Current Outpatient Medications: ??? BLACK COHOSH COMPOUND OR, Take 1 capsule by mouth daily., Disp: , Rfl: ??? ELDERBERRY OR, Take 1 capsule by mouth daily., Disp: , Rfl: ??? vitamin D3, cholecalciferol, 1000 UNIT Tab tablet, Take 1 tablet by mouth daily., Disp: , Rfl: Allergies Allergen Reactions ??? Penicillins Hives Past Medical History: Diagnosis Date ??? Abnormal uterine bleeding ??? Cyst of cervix ??? Fibroids uterine Past Surgical History: Procedure Laterality Date ??? DELIVERY ONLY 1989 ??? HC ABLATION UTERINE BALLOON 08/2020 [place] ??? HERNIA REPAIR 1975 umbilical hernia Social History Socioeconomic History ??? Marital status: Spouse name: Not on file ??? Number of children: Not on file ??? Years of education: Not on file ??? Highest education level: Not on file Occupational History ??? Not on file Tobacco Use ??? Smoking status: Former Smoker Packs/day: 0.50 Types: Cigarettes Start date: 1986 Quit date: 2018 Years since quittin.4 ??? Smokeless tobacco: Never Used Substance and Sexual Activity ??? Alcohol use: Yes Comment: 1 glass wine daily ??? Drug use: Never ??? Sexual activity: Yes Partners: Male Other Topics Concern ??? Not on file Social History Narrative Lives at home with Social Determinants of Health Financial Resource Strain: Low Risk ??? Difficulty of Paying Living Expenses: Not hard at all Food Insecurity: No Food Insecurity ??? Worried About Running Out of Food in the Last Year: Never true ??? Ran Out of Food in the Last Year: Never true Transportation Needs: No Transportation Needs ??? Lack of Transportation (Medical): No ??? Lack of Transportation (Non-Medical): No Physical Activity: Sufficiently Active ??? Days of Exercise per Week: 3 days ??? Minutes of Exercise per Session: 60 min Stress: No Stress Concern Present ??? Feeling of Stress : Not at all Social Connections: Unknown ??? Frequency of Communication with Friends and Family: Patient refused ??? Frequency of Social Gatherings with Friends and Family: Patient refused ??? Attends Protestant Services: Patient refused ??? Active Member of Clubs or Organizations: Patient refused ??? Attends Club or Organization Meetings: Patient refused ??? Marital Status: Patient refused Intimate Partner Violence: Unknown ??? Fear of Current or Ex-Partner: Patient refused ??? Emotionally Abused: Patient refused ??? Physically Abused: Patient refused ??? Sexually Abused: Patient refused Family History Problem Relation Name Age of Onset ??? Alcohol/Drug Mother ??? No Known Problems Brother Family Status Relation Name Status ??? Mother ??? Father unknown hx, in MVA ??? Brother Alive Physical Exam Physical Exam Vitals and nursing note reviewed. Constitutional: General: She is not in acute distress. Appearance: Normal appearance. She is not ill-appearing, toxic-appearing or diaphoretic. HENT: Head: Normocephalic and atraumatic. Right Ear: External ear normal. Left Ear: External ear normal. Nose: Nose normal. Mouth/Throat: Mucous membranes are moist. Oropharynx is clear. Eyes: General: Right eye: No discharge. Left eye: No discharge. Conjunctiva/sclera: Conjunctivae normal. Pulmonary: Effort: Pulmonary effort is normal. No respiratory distress. Abdominal: General: Bowel sounds are normal. There is no distension. Palpations: Abdomen is soft. Tenderness: There is no abdominal tenderness. There is no right CVA tenderness or left CVA tenderness. Hernia: No hernia is present. Musculoskeletal: General: Normal range of motion. Cervical back: Normal range of motion and neck supple. No rigidity. Skin: General: Skin is warm and dry. Neurological: Mental Status: She is alert and oriented to person, place, and time. Psychiatric: Mood and Affect: Mood normal. Behavior: Behavior normal. Filed Vitals: 12/23/20 0734 BP: 124/72 Pulse: 72 Resp: 16 Temp: 97.5 ??F (36.4 ??C) TempSrc: Temporal SpO2: 98% Weight: 77.2 kg (170 lb 3.2 oz) Height: 5' 4 (1.626 m) Body mass index is 29.21 kg/m??. Assessment/Plan: 1. Viral gastroenteritis - Resolved. Continue eating yogurt two times daily and can start pro biotic with lactobacilluls. - Follow up if symptoms return. BROOKLYN SANTAMARIA NP 12/23/2020 documented in this encounter Plan of Treatment Not on file documented as of this encounter Visit Diagnoses Diagnosis Viral gastroenteritis- Primary Intestinal infection due to other organism, not elsewhere classified documented in this encounter Care Teams Bullet Assembly Press Setter Operator Relationship Specialty Start Date End Date Geovany Auguste MD [address] [place] [address] PCP - General INTERNAL MEDICINE 10/1/20 documented as of this encounter
--- OUTSIDE RECORDS SUMMARY | 2024-07-12 05:29 | XMS_ITS | Encounter Summary ---
Author Organization [facility] Address [facility]. [place], [place] [address] [place] [address] Care Team Providers Care Manager Games Name Role Phone Geovany Auguste MD Primary Care Provider [phone] Encounter Details Date Type Department Care Team (Late st Contact Info) Description 10/05/2022 Orders Only [facility] [address] [place] [address] Geovany Auguste MD [address] [place] [address] Social History Tobacco Use Types Packs/Day Years [...] declined 10/28/2020 How often do you attend protestant or confucianism serv ices? Patient declined 10/28/2020 Do you belong to any clubs o r organizations such as protestant groups, unions, fraternal or athletic groups, or [...] move on to questions 3-9 0 09/05/2020 [facility] - [facility]ational Stress Questionnaire Answer Date [...] Exposure Response Date Recorded In the last 10 days, have yo u been in contact with someone who was confirmed or suspected to have Coronavirus/COVID-19? No / Unsure 10/05/2022 8:17 AM CDT documented as of this encounter Plan of Treatment Not on file documented as of this encounter Results * LIPID PANEL (10/05/2022 8:46 AM CDT) CHOLESTEROL 189 <200.0 MG/DL 10/05/2022 11:14 AM CDT [facility] TRIGLYCERIDES 58 <150 MG/DL 10/05/2022 11:14 AM CDT [facility] HDL 89 >40.0 MG/DL 10/05/2022 11:14 AM T [facility] LDL (CALCULATED) 88 <100 MG/DL 10/06/19 11:14 AM CDT [facility] NON HDL CHOLESTEROL 100 <130 MG/DL 10/05 11:14 AM T [facility] CHOL/HDL RATIO 2.1 0.0 - 4.5 10/05/2022 11:14 AM T [facility] VLDL CALCULATION 12 5 - 55 MG/DL 10/05/2022 11:14 AM T [facility] LIPID INTERPRETATION 10/05/2022 11:14 AM CDT [facility] Comment: NIH CONCENSUS REPORT RECOMMENDATIONS: ?ADULT ?CHILD ??LOW RISK: ?CHOLESTEROL ? <200 ? <170 ?TRIGLYCERIDE ?<150 ?--- ?HDL ? >=60 ?--- ?LDL ? <100 ? <110 ??BORDERLINE: ?CHOLESTEROL ? 200-239 ?? 170-199 ?TRIGLYCERIDE ?150-199 ? --- ?HDL ?40-59 ?--- ?LDL ? 100-159 ?? 110-129 ??HIGH RISK: ?CHOLESTEROL ? >=240 ?>=200 ?TRIGLYCERIDE ?>=200 ? --- ?HDL ?<40 ?--- ?LDL ? >=160 ?>=130 10/05/2022 8:46 AM CDT us Geovany Auguste MD LABORATORY Final Result [facility] [address] [place] [address], [place] [phone] * (ABNORMAL) COMPREHENSIVE METABOLIC PANEL (10/05/2022 8:46 AM CDT) [facility] GLUCOSE 89 70 - 99 MG/DL 10/05/2022 11:14 AM CDT [facility] BUN 13 7 - 18 MG/DL 10/05/2022 11:14 AM CDT [facility] CREATININE S/P/B 0.76 0.55 - 1.02 MG/DL 10/05/2022 11:14 AM CDT [facility] SODIUM S/P/B 139 136 - 145 MMOL/L 10/05/2022 11:14 AM CDT [facility] POTASSIUM S/P/B 4.3 3.5 - 5.1 MMOL/L 10/05/2022 11:14 AM T [facility] CHLORIDE S/P/B 104 100 - 108 MMOL/L 10/05/2022 11:14 AM T [facility] CO2 29.3 21 - 32 MMOL/L 10/05/2022 11:14 AM T [facility] CALCIUM S/P/B 9.0 8.5 - 10.1 MG/DL 10/05/2022 11:14 AM T [facility] BILIRUBIN TOTAL S/P/B 0.3 0.2 - 1.2 MG/DL 10/05/2022 11:14 AM CDT [facility] TOTAL PROTEIN S/P/B 7.9 6.4 - 8.2 G/DL 10/05/2022 11:14 AM T [facility] ALBUMIN S/P/B 3.8 3.4 - 5.0 G/DL 10/05/2022 11:14 AM CDT [facility] AST 34 15 - 37 U/L 10/05/2022 11:14 AM CDT [facility] ALT 58(H) 14 - 55 U/L 10/05/2022 11:14 AM CDT [facility] ALKALINE PHOSPHATASE S/P/B 88 50 - 136 U/L 10/05/2022 11:14 AM CDT [facility] ANION GAP 5.7 5 - 15 MMOL/L 10/05/2022 11:14 AM CDT [facility] BUN CREATININE RATIO 17.1 6 - 26 10/05/2022 11:14 AM T [facility] A/G RATIO 0.9(L) 1.0 - 2.0 RATIO 10/05/2022 11:14 AM T [facility] GFR ESTIMATE >90 >90 ML/MIN/1.7 3 M2 10/05/2022 11:14 AM T [facility] Comment: NOTE: eGFR is not calculated for patients <18 years of age. This is an estimated GFR calculation using the new CKD EPI creatinine equation without race and so does not require a correction factor for race. This estimated GFR should not be used for calculating drug doses. 10/05/2022 8:46 AM CDT us Geovany Auguste MD LABORATORY Final Result [facility] [address] [place] [address], * (ABNORMAL) CBC W/DIFF AUTOMATED (10/05/2022 8:46 AM CDT) WBC 4.96 4.4 - 11.0 x10'3/uL 10/05/2022 9:08 AM CDT [facility] RBC 4.50 4.50 - 5.10 x10'6/uL 10/05/2022 9:08 AM CDT [facility] HGB 14.1 12.3 - 15.3 G/DL 10/05/2022 9:08 AM T [facility] HCT 42.1 35.9 - 44.6 % 10/05/2022 9:08 AM CDT [facility] MCV 93.6 80.0 - 96.0 FL 10/05/2022 9:08 AM T [facility] MCH 31.3(H) 25.3 - 30.9 PG 10/05/2022 9:08 AM T [facility] MCHC 33.5 31.0 - 34.1 G/DL 10/05/2022 9:08 AM T [facility] RDW 14.0 12.4 - 15.1 % 10/05/2022 9:08 AM [facility] PLT 236 151 - 353 x10'3/uL 10/05/2022 9:08 AM T [facility] MPV 10.5 9.6 - 12.0 FL 10/05/2022 9:08 AM [facility] RBC MORPHOLOGY NORMAL 10/05/2022 9:08 AM T [facility] PLT MORPH. NORMAL 10/05/2022 9:08 AM T [facility] WBC MORPHOLOGY NORMAL 10/05/2022 9:08 AM T [facility] LYMPHOCYTES % 35.1 15.8 - 45.0 % 10/05/2022 9:08 AM T [facility] NEUTROPHILS % 48.4 42.1 - 71.9 % 10/05/2022 9:08 AM T [facility] MONOCYTES % 9.5 5.7 - 12.5 % 10/05/2022 9:08 AM T [facility] EOSINOPHILS 6.0(H) 0.0 - 5.6 % 10/05/2022 9:08 AM CDT [facility] BASOPHILS 0.8 0.0 - 1.3 % 10/05/2022 9:08 AM CDT [facility] ABS. NEUTROPHILS 2.40 1.40 - 6.00 x10'3/uL 10/05/2022 9:08 AM CDT [facility] IMMATURE GRANS % 0.2 0.0 - 0.5 % 10/05/2022 9:08 AM CDT [facility] ABS. LYMPHOCYTES 1.74 0.80 - 4.70 x10'3/uL 10/05/2022 9:08 AM CDT [facility] 10/05/2022 8:46 AM CDT us Geovany Auguste MD LABORATORY Final Result Performing Organization Address City/[facility]/ZIP Co de Phone Number [facility] [address] [place] [address], [place] [phone] * THYROID STIM HORMONE, TSH (10/05/2022 8:46 AM CDT) TSH 1.247 0.358 - 3.74 uIU/ML 10/05/2022 11:14 AM CDT [facility] Comment: HIGH DOSES OF BIOTIN MAY INTERFERE WITH THIS TEST RESULT. CORRELATION TO CLINICAL HISTORY AND PRESENTATION RECOMMENDED. 10/05/2022 8:46 AM CDT us Geovany Auguste MD LABORATORY Final Result [facility] [address] [place] [address], [place] [phone] * VITAMIN B12 / FOLATE (10/05/2022 8:46 AM CDT) VITAMIN B12 S/P/B 407 193 - 986 PG/ML 10/05/2022 11:47 AM CDT [facility] FOLATE 17.0 8.6 - 58.9 NG/ML 10/05/2022 11:47 AM CDT [facility] 10/05/2022 8:46 AM CDT us Geovany Auguste MD LABORATORY Final Result [facility] [address] [place] [address], documented in this encounter Visit Diagnoses Diagnosis Routine general medical examination at a health care facility- Primary Fatigue Other malaise and fatigue documented in this encounter Care Teams Manager Games Relationship Specialty Start Date End Date Geovany Auguste MD [address] [place] [address] PCP - General INTERNAL MEDICINE 04/07/20 documented as of this encounter
--- OUTSIDE RECORDS SUMMARY | 2024-07-12 05:29 | XMS_ITS | Encounter Summary ---
Author Organization [facility] Address [address] [place] [address]. [place], [place] [address] [place] [address] Care Team Providers Care Adjunct Trainer Name Role Phone Unavailable Primary Care Provider Unavailabl e Encounter Details Date Type Department Care Team (Late st Contact Info) Description 03/30/2016 Abstract [facility] [address] [place], [place] [id number] Blanca Montague, COOPERATIVE EDUCATION COORDINATOR [address] [place] [address] Social History Tobacco Use Types Packs/Day Years Used Date Smoking Tobacco: Never Assessed Comments Unknown Sex and Gender Information Value Date Recorded Sex Assigned at Not on file Legal Sex Female 6:16 PM CDT Gender Identity Not on file Sexual Orientation Not on file documented as of this encounter Plan of Treatment Not on file documented as of this encounter Visit Diagnoses Diagnosis Encounter for screening mammogram for malignant neoplasm of breast Other screening mammogram documented in this encounter
--- OUTSIDE RECORDS SUMMARY | 2024-07-12 05:29 | XMS_ITS | Encounter Summary ---
Author Organization [facility] Address [address] [place] [address]. [place], [place] [address] [place] [address] Care Team Providers Care Sewage Screen Operator Name Role Phone Unavailable Primary Care Provider Unavailabl e Encounter Details Date Type Department Care Team (Late st Contact Info) Description 03/03/2014 Abstract [facility] [address] [place], [place] [id number] Blanca Montague, ELECTRIFICATION ADVISER [address] [place] [address] Social History Tobacco Use Types Packs/Day Years Used Date Smoking Tobacco: Never Assessed Comments Unknown Sex and Gender Information Value Date Recorded Sex Assigned at Not on file Legal Sex Female 6:16 PM CDT Gender Identity Not on file Sexual Orientation Not on file documented as of this encounter Plan of Treatment Not on file documented as of this encounter Visit Diagnoses Diagnosis Screening for malignant neoplasm of cervix Screening for malignant neoplasm of the cervix documented in this encounter
--- OUTSIDE RECORDS SUMMARY | 2024-07-12 05:29 | XMS_ITS | Encounter Summary ---
Author Organization [facility] Address [address] [place] [address]. [place], [place] [address] [place] [address] Care Team Providers Care Map Plotter Name Role Phone Unavailable Primary Care Provider Unavailabl e Encounter Details Date Type Department Care Team (Late st Contact Info) Description 02/23/2013 Abstract [facility] [address] [place], [place] [id number] Blanca Montague, MANAGER OF GLOBAL [address] [place] [address] Social History Tobacco Use Types Packs/Day Years [...]
--- OUTSIDE RECORDS SUMMARY | 2024-07-12 05:29 | XMS_ITS | Encounter Summary ---
Author Organization [facility] Address [address] [place] [address]. [place], [place] [address] [place] [address] Care Team Providers Care Irrigating Pump Operator Name Role Phone Geovany Auguste MD Primary Care Provider [phone] Encounter Details Date Type Department Care Team (Latest Contact Info) Description 08/22/2020 Travel Social History Tobacco Use Types Packs/Day [...] have Coronavirus / COVID-19? 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
--- OUTSIDE RECORDS SUMMARY | 2024-07-12 05:29 | XMS_ITS | Encounter Summary ---
Author Organization [facility] Address [address] [place] [address]. [place], [place] [address] [place] [address] Care Team Providers Care Medical Delivery Technician Name Role Phone Geovany Auguste MD Primary Care Provider [phone] Reason for Visit * Auth/Cert Specialty Diagnoses / Procedures Referred By Contac t Referred To Contact Diagnoses abnormal uterine bleeding Procedures HYSTEROSCOPY, ABLATION HYSTEROSCOPY DILATATION AND CURETTAGE, NOVASURE ABLATION Referral ID Status Reason Start Date Expiration Date Visits Re quested Visits Authorized [id number] 1 1 Encounter Details Date Type Department Care Team (Latest Contact Info) Description 11/04/2020 6:08 AM CDT - 11/04/2020 9:30 AM [facility] Encounter [facility] [address] [place] [address] Natalia Yu DO [address] [place] [address] Discharge Disposition: Home or Self Care (Routine [...] declined 10/28/2020 How often do you attend christianity or anabaptist serv ices? Patient declined 10/28/2020 Do you belong to any clubs o r organizations such as christianity groups, unions, fraternal or athletic groups, or [...] move on to questions 3-9 0 09/05/2020 [facility] Occupat ional Health - Occupational [...] Sign Reading Time Taken Comments Blood Pressure 111/74 11/04/2020 9:00 AM CDT Pulse 61 11/04/2020 9:00 AM CDT Temperature 36.4 ??C (97.5 ??F) 11/04/2020 8:15 AM CD T Respiratory Rate 16 11/04/2020 9:00 AM CDT Oxygen Saturation 99% 11/04/2020 9:00 AM CDT Inhaled Oxygen Concentration - - [...] to call your physician or the hospital type disk quality control supervisor at [phone] if you have any questions, and they will be happy to assist you. You may also call Outpatient surgery [phone] Saturday through Saturday 8:00am to 4:00pm. Patient [...] Where can I learn more? [place] [employer] http://www.acog.org/~/media/For%20Patients/hye951.pdf?dmc=1&rh=[email or web address] 29 Citizen Of [place] [employer] for Reproductive [employer] https://www.reproductivefacts.org/globalassets/rf/kork-ywu-kyuvavwkjkji/booklets fact-sheets/icelandic- jula-nuljeb-kik-info-booklets/booklet_laparoscopy_and_hysteroscopy.pdf [facility] https://www.nhs.uk/conditions/hysteroscopy/recovery/ Last Reviewed [...] right for you. Copyright Copyright ?? 2020 [employer]. and its affiliates and/or licensors. All rights [...] Where can I learn more? [place] Congress [employer]etric[employer] and Gynecologists https://www.acog.org/Patients/FAQs/Egwquwpf-qkl-Czdvcrslr [place] Association https://americanpregnancy.org/-complications/b-qnu-j-tgnmmgxee-xcogo-io scarriage/ Family Doctor https://familydoctor.org/xugnvrip-wsdmmdtsz-m-c / NHS Choices http://www.nhs.uk/Conditions/Mfvcfqljmy-mex-uqxmzxlbn-(DC)/Pages/Introduction.as px Last Reviewed Date 2019-03-20 Consumer Information [...] right for you. Copyright Copyright ?? 2020 [employer]. and its affiliates and/or licensors. All rights reserved. Patient Education Endometrial Ablation The Basics Written by the doctors and editors at [employer] What is endometrial ablation???--??Endometrial ablation, or EA, is a procedure that makes your period much beam press operator or stops it completely. It works by [...] 2 to 3 months, most people have beam press operator periods and some stop having periods completely. [...] process is complete. This topic retrieved from [employer] on: Sep 06, 2020. Topic 88748 Version 7.0 Release: 29.1.3 - C29.60 ?2020??[employer]. and/or its affiliates.??All rights reserved. figure 1: Female reproductive anatomy These are the internal organs that make up the female reproductive system. Graphic 24864 Version 6.0 Consumer Information Use and Disclaimer [...] that is right for you.The use of [employer] content is governed by the [employer] Terms of Use. ??2020 [employer]. All rights reserved. Copyright ?2020??[employer] and/or its affiliates.??All rights reserved. Patient Education Acetaminophen and Codeine (a seet a DAVID st & ERICK newton) Brand Names: US Tylenol with Codeine #3 [DSC]; Tylenol with Codeine #4 [DSC] Brand Names: Evelyn Acet Codeine 30 [DSC]; Acet Codeine 60 [DSC]; PMS- Acetaminophen/Codeine; Procet-30 [DSC]; EHKM-Kdscw-49; TEVA-Lenoltec No 4; Triatec-30; Tylenol #4 [DSC] [...] Last Reviewed Date 2020-02-04 Copyright ?? 2020 [employer]. and its affiliates and/or licensors. All rights reserved. Patient Education Uterine Fibroids The Basics Written by the doctors and editors at [employer] What are fibroids???--??Fibroids are tough balls of [...] or IUDs, can also make your periods beam press operator. Besides control, there are also other medicines [...] process is complete. This topic retrieved from [employer] on: Sep 06, 2020. Topic 38256 Version 12.0 Release: 29.1.3 - C29.60 ?2020??[employer]. and/or its affiliates.??All rights reserved. figure 1: Fibroid locations in the uterus These figures depict the various types and locations of fibroids. A woman may have one or more typeof fibroid. Graphic 27932 Version 2.0 Consumer Information Use and Disclaimer [...] that is right for you.The use of [employer] content is governed by the [employer] Terms of Use. ??2020 [employer]. All rights reserved. Copyright ?2020??[employer] and/or its affiliates.??All rights reserved. Bess given-11/04/20 @ 9:[address] Follow up with Dr Yu next week as directed * Attachments The following attachments cannot be sent through Care Everywhere. * Hysteroscopy Discharge Instructions (Guamanian) * Endometrial Ablation Discharge Instructions (Guamanian) documented in this encounter Medications at Time [...] - 11/04/2020 8:19 AM CDT Operative note Nohemymanuel Alba ---- 1970 ---- [id number] ---- [id number] ----Natalia Yu DO Preop diagnosis: 1) Abnormal [...] sterile fashion in dorsal lithotomy position in [facility]. Exam revealed the above mentioned findings. A [...] Results * Pathology (11/04/2020 8:02 AM CDT) [facility] ?[facility] ? [address] ?[place] [address] ? [phone] ? Department of Pathology ? Pathology Report ? Surgical Pathology Report Patient Name: NOHEMY ALBA ? : 1970 (Age: 50) ? Location: [facility] Gender: F ?Collected Date: 11/04/2020 Med Rec #: [id number] ?Date Received: 11/04/2020 Date Reported: 11/09/2020 Provider: [...] developed and the performance characteristics determined by: [place], [place]; [place], [place]; [employer] [place], [place]; and/or [employer] [place], [place]. They have not been cleared [...] cassette. ??CC/llc ?? :pb Billing Fee Code(s): 90992, [address]6775, [address] [facility] Tissue specimen (specimen) VAGINAL STRUCTURE / Unknown 11/04/2020 8:02 AM CDT us Natalia Elian DO PATHOLOGY/CYTOLOGY ORDERABL ES Final Result Performing Organization Address City/[facility]/ZIP Co de Phone Number [facility] [address] [place] [address], [place] [phone] * TEST URINE (11/04/2020 6:15 AM CDT) PREG TEST NEGATIVE NEGATIVE 11/04/2020 6:[address] [facility] SPECIFIC GRAVITY (U) 1.010 >1.009 11/04/2020 6:[address] [facility] URINE SPECIMEN FROM URETHRA / Unknown 11/04/2020 6:15 AM CDT us Natalia Maryobeloch DO URINE ORDERABLES Final Resu lt [facility] [address] [place] [address], [place] [phone] documented in this encounter Visit Diagnoses Diagnosis Abnormal uterine bleeding- Primary Unspecified disorder of menstruation and other abnormal bleeding from female genital tract S/P endometrial ablation Other postprocedural status documented in this encounter Administered Medications Inactive Administered Medications - up to 3 most recent administrations Medication Order MAR Action Action Date Dose Rate Site acetaminophen (TYLENOL) tablet 1,000 mg 1,000 mg, Oral, Once, 1 dose, On Sat11/04/20 at 0630, Maximum dose of acetaminophen is 4000 mg from all sources in 24 hours., Pre-Op Given 11/04/2020 6:45 AM CDT 1,000 mg diazePAM (VALIUM) injection 2 mg 2 mg, [...] PACU documented in this encounter Care Teams Medical Delivery Technician Relationship Specialty Start Date End Date Geovany Auguste MD [address] [place] [address] PCP - General INTERNAL MEDICINE 04/07/20 documented as of this encounter
--- OUTSIDE RECORDS SUMMARY | 2024-07-12 05:29 | XMS_ITS | Encounter Summary ---
Author Organization [facility] Address [address] [place] [address]. [place], [place] [address] [place] [address] Care Team Providers Care Supervisor Air Conditioning Installer Name Role Phone Geovany Auguste MD Primary Care Provider [phone] Encounter Details Date Type Department Care Team (Latest Contact Info) Description 07/28/2020 Travel Social History Tobacco Use Types Packs/Day [...] have Coronavirus / COVID-19? 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
--- OUTSIDE RECORDS SUMMARY | 2024-07-12 05:29 | XMS_ITS | Encounter Summary ---
Author Organization [facility] Address [address] [place] [address]. [place], [place] [address] [place] [address] Care Team Providers Care Hat And Cap Opener Name Role Phone Geovany Auguste MD Primary Care Provider [phone] Encounter Details Date Type Department Care Team (Latest Contact Info) Description 10/17/2020 Travel Social History Tobacco Use Types Packs/Day [...] on filedocumented in this encounter Care Teams Hat And Cap Opener Relationship Specialty Start Date End Date Geovany Auguste MD [address] [place] [address] PCP - General INTERNAL MEDICINE 04/07/20 documented as of this encounter
--- OUTSIDE RECORDS SUMMARY | 2024-07-12 05:29 | XMS_ITS | Encounter Summary ---
Author Organization [facility] Address [address] [place] [address]. [place], [place] [address] [place] [address] Care Team Providers Care Windmill Mechanic Name Role Phone Geovany Auguste MD Primary Care Provider [phone] Encounter Details Date Type Department Care Team (Latest Contact Info) Description 10/05/2022 Travel Social History Tobacco Use Types Packs/Day Years Used Date Smoking Tobacco: Former Cigarettes 0.5 2017 Smokeless Tobacco: Never Alcohol Use Standard [...] declined 10/28/2020 How often do you attend rastafari or sikh serv ices? Patient declined 10/28/2020 Do you belong to any clubs o r organizations such as rastafari groups, unions, fraternal or athletic groups, or [...] move on to questions 3-9 0 09/05/2020 [facility] of Occupat ional Health - Occupational Stress [...] on filedocumented in this encounter Care Teams Windmill Mechanic Relationship Specialty Start Date End Date Geovany Auguste MD [address] [place] [address] PCP - General INTERNAL MEDICINE 04/07/20 documented as of this encounter
--- OUTSIDE RECORDS SUMMARY | 2024-07-12 05:29 | XMS_ITS | Encounter Summary ---
Author Organization [facility] Address [address] [place] [address]. [place], [place] [address] [place] [address] Care Team Providers Care Skate Maker Name Role Phone Geovany Auguste MD Primary Care Provider [phone] Encounter Details Date Type Department Care Team (Latest Contact Info) Description 10/05/2022 8:25 AM CDT - 10/05/2022 11:59 PM T Hospital Encounter [facility] [address] [place] [address] Geovany Auguste MD [address] [place] [address] Discharge Disposition: Home or Self Care (Routine [...] declined 10/28/2020 How often do you attend mandaeism or scientology serv ices? Patient declined 10/28/2020 Do you belong to any clubs o r organizations such as mandaeism groups, unions, fraLalalama or athletic groups, or school groups? Patient [...] move on to questions 3-9 0 09/05/2020 [facility] Occupat ional Health - Occupational [...] AM CDT documented as of this encounter Medications at Time of Discharge BLACK COHOSH COMPOUND OR Take 1 capsule by mouth daily. ELDERBERRY OR Take 1 capsule by mouth daily. vitamin D3, cholecalciferol, 1000 UNIT Tab tablet Take 1 tablet by mouth daily. documented as of this encounter Plan of Treatment Not on file documented as of this encounter Procedures Procedure Name Priority Date/Time Associated Diagnosis Comments VITAMIN B12 / FOLATE Routine 10/05/2022 8:46 AM CDT Routine general medical examination at a health care facility Fatigue COMPREHENSIVE METABOLIC PANEL Routine 10/05/2022 8:46 AM CDT Routine general medical examination at a health care facility Fatigue LIPID PANEL Routine 10/05/2022 8:46 AM CDT Routine general medical examination at a health care facility Fatigue CBC W/DIFF AUTOMATED Routine 10/05/2022 8:46 AM CDT Routine general medical examination at a health care facility Fatigue THYROID STIM HORMONE TSH Routine 10/05/2022 8:46 AM CDT Routine general medical examination at a [facility] care facility Fatigue documented in this encounter Results * LIPID PANEL (10/05/2022 8:46 AM CDT) CHOLESTEROL 189 <200.0 MG/DL 10/05/2022 11:14 AM CDT [facility] TRIGLYCERIDES 58 <150 MG/DL 10/05/2022 11:14 AM T [facility] HDL 89 >40.0 MG/DL 10/05/2022 11:14 AM T [facility] LDL (CALCULATED) 88 <100 MG/DL 10/06/19 11:14 AM [facility] NON HDL CHOLESTEROL 100 <130 MG/DL 10/05 11:14 AM [facility] CHOL/HDL RATIO 2.1 0.0 - 4.5 10/05/2022 11:14 AM T [facility] VLDL CALCULATION 12 5 - 55 MG/DL 10/05/2022 11:14 AM [facility] LIPID INTERPRETATION 10/05/2022 11:14 AM [facility] Comment: NIH CONCENSUS REPORT RECOMMENDATIONS: ?ADULT [...] MD LABORATORY Final Result Performing Organization Address City/State/[facility] Co de Phone Number [facility] [address] [place] [address], * (ABNORMAL) COMPREHENSIVE METABOLIC PANEL (10/05/2022 8:46 AM CDT) GLUCOSE 89 70 - 99 MG/DL 10/05/2022 11:14 AM CDT [facility] BUN 13 7 - 18 MG/DL 10/05/2022 11:14 AM CDT [facility] CREATININE S/P/B 0.76 0.55 - 1.02 MG/DL 10/05/2022 11:14 AM CDT [facility] SODIUM S/P/B 139 136 - 145 MMOL/L 10/05/2022 11:14 AM [facility] POTASSIUM S/P/B 4.3 3.5 - 5.1 MMOL/L 10/05/2022 11:14 AM [facility] CHLORIDE S/P/B 104 100 - 108 MMOL/L 10/05/2022 11:14 AM [facility] CO2 29.3 21 - 32 MMOL/L 10/05/2022 11:14 AM [facility] CALCIUM S/P/B 9.0 8.5 - 10.1 MG/DL 10/05/2022 11:14 AM [facility] BILIRUBIN TOTAL S/P/B 0.3 0.2 - 1.2 MG/DL 10/05/2022 11:14 AM [facility] TOTAL PROTEIN S/P/B 7.9 6.4 - 8.2 G/DL 10/05/2022 11:14 AM [facility] ALBUMIN S/P/B 3.8 3.4 - 5.0 G/DL 10/05/2022 11:14 AM [facility] AST 34 15 - 37 U/L 10/05/2022 11:14 AM [facility] ALT 58(H) 14 - 55 U/L 10/05/2022 11:14 AM [facility] ALKALINE PHOSPHATASE S/P/B 88 50 - 136 U/L 10/05/2022 11:14 AM [facility] ANION GAP 5.7 5 - 15 MMOL/L 10/05/2022 11:14 AM [facility] BUN CREATININE RATIO 17.1 6 - 26 10/05/2022 11:14 AM [facility] A/G RATIO 0.9(L) 1.0 - 2.0 RATIO 10/05/2022 11:14 AM CDT [facility] GFR ESTIMATE >90 >90 ML/MIN/1.7 3 M2 10/05/2022 11:14 AM CDT [facility] Comment: NOTE: eGFR is not calculated for patients <18 years of age. This is an estimated GFR calculation using the new CKD EPI creatinine equation without race and so does not require a correction factor for race. This estimated GFR should not be used for calculating drug doses. 10/05/2022 8:46 AM CDT us Geovany Auguste MD LABORATORY Final Result [facility] [address] [place] [address], * (ABNORMAL) CBC W/DIFF AUTOMATED (10/05/2022 8:46 AM CDT) WBC 4.96 4.4 - 11.0 x10'3/uL 10/05/2022 9:08 AM CDT [facility] RBC 4.50 4.50 - 5.10 x10'6/uL 10/05/2022 9:08 AM CDT [facility] HGB 14.1 12.3 - 15.3 G/DL 10/05/2022 9:08 AM CDT [facility] HCT 42.1 35.9 - 44.6 % 10/05/2022 9:08 AM CDT [facility] MCV 93.6 80.0 - 96.0 FL 10/05/2022 9:08 AM CDT [facility] MCH 31.3(H) 25.3 - 30.9 PG 10/05/2022 9:08 AM CDT [facility] MCHC 33.5 31.0 - 34.1 G/DL 10/05/2022 9:08 AM CDT [facility] RDW 14.0 12.4 - 15.1 % 10/05/2022 9:08 AM CDT [facility] PLT 236 151 - 353 x10'3/uL 10/05/2022 9:08 AM T [facility] MPV 10.5 9.6 - 12.0 FL 10/05/2022 9:08 AM CDT [facility] RBC MORPHOLOGY NORMAL 10/05/2022 9:08 AM T [facility] PLT MORPH. NORMAL 10/05/2022 9:08 AM T [facility] WBC MORPHOLOGY NORMAL 10/05/2022 9:08 AM T [facility] LYMPHOCYTES % 35.1 15.8 - 45.0 % 10/05/2022 9:08 AM T [facility] NEUTROPHILS % 48.4 42.1 - 71.9 % 10/05/2022 9:08 AM T [facility] MONOCYTES % 9.5 5.7 - 12.5 % 10/05/2022 9:08 AM [facility] EOSINOPHILS 6.0(H) 0.0 - 5.6 % 10/05/2022 9:08 AM T [facility] BASOPHILS 0.8 0.0 - 1.3 % 10/05/2022 9:08 AM T [facility] ABS. NEUTROPHILS 2.40 1.40 - 6.00 x10'3/uL 10/05/2022 9:08 AM T [facility] IMMATURE GRANS % 0.2 0.0 - 0.5 % 10/05/2022 9:08 AM T [facility] ABS. LYMPHOCYTES 1.74 0.80 - 4.70 x10'3/uL 10/05/2022 9:08 AM CDT [facility] 10/05/2022 8:46 AM CDT us Geovany Auguste MD LABORATORY Final Result [facility] [address] [place] [address], [place] [phone] * THYROID STIM HORMONE, TSH (10/05/2022 8:46 AM CDT) TSH 1.247 0.358 - 3.74 uIU/ML 10/05/2022 11:14 AM CDT [facility] Comment: HIGH DOSES OF BIOTIN MAY INTERFERE WITH THIS TEST RESULT. CORRELATION TO CLINICAL HISTORY AND PRESENTATION RECOMMENDED. 10/05/2022 8:46 AM CDT us Geovany Auguste MD LABORATORY Final Result Performing Organization Address City/[facility]/ZIP Co de Phone Number [facility] [address] [place] [address], [place] [phone] * VITAMIN B12 / FOLATE (10/05/2022 8:46 AM CDT) VITAMIN B12 S/P/B 407 193 - 986 PG/ML 10/05/2022 11:47 AM CDT [facility] FOLATE 17.0 8.6 - 58.9 NG/ML 10/05/2022 11:47 AM CDT [facility] 10/05/2022 8:46 AM CDT us Geovany Auguste MD LABORATORY Final Result [facility] [address] [place] [address], [place] [phone] documented in this encounter Visit Diagnoses Diagnosis Routine general medical examination at a health care facility Fatigue Other malaise and fatigue documented in this encounter Care Teams Skate Maker Relationship Specialty Start Date End Date Geovany Auguste MD [address] [place] [address] PCP - General INTERNAL MEDICINE 04/07/20 documented as of this encounter
--- OUTSIDE RECORDS SUMMARY | 2024-07-12 05:29 | XMS_ITS | Encounter Summary ---
Author Organization [facility] Address [address] [place] [address]. [place], [place] [address] [place] [address] Care Team Providers Care Coordinator Hotels Name Role Phone Geovany Auguste MD Primary Care Provider [phone] Encounter Details Date Type Department Care Team (Late st Contact Info) Description 09/05/2020 5:14 PM RESPIRATORY CARE INSTRUCTOR - 09/05/2020 11:59 PM [facility] Hospital Encounter [facility] [address] [place] [address] Kelly Marshall NP Discharge Disposition: Home or Self Care (Routine [...] COVID-19? No / Unsure 09/05/2020 2:32 PM RESPIRATORY CARE INSTRUCTOR documented as of this encounter Progress Notes * Kelly Marshall NP - 09/05/2020 5:14 PM CST Hi Kendy, Your labs look great! Eosinophils are a little elevated which is sometimes seen with allergies. Thanks, Pura IRATORY CARE INSTRUCTOR * Kelly Marshall NP - 09/05/2020 5:14 PM CST Hi Kendy, Your vitamin D level is 36 which is on the lower side of normal. I would recommend you start taking vitamin D OTC 800 - 1000 IU daily. Thank you Pura IRATORY CARE INSTRUCTOR documented in this encounter Plan of Treatment Not on file documented as of this encounter Procedures Procedure Name Priority Date/Time Associated Diagnosis Comments TSH W/REFLEX Today 09/05/2020 3:53 PM RESPIRATORY CARE INSTRUCTOR Screening for thyroid disorder COMPREHENSIVE METABOLIC PANEL Today 09/05/2020 3:53 PM RESPIRATORY CARE INSTRUCTOR Screening for diabetes mellitus LIPID PANEL Today 09/05/2020 3:53 PM RESPIRATORY CARE INSTRUCTOR Screening for hyperlipidemia CBC W/DIFF AUTOMATED Today 09/05/2020 3:53 PM RESPIRATORY CARE INSTRUCTOR Screening for deficiency anemia VITAMIN D 1,25 DIHYDROXY Today 09/05/2020 3:53 PM RESPIRATORY CARE INSTRUCTOR Encounter for vitamin deficiency screening documented in this encounter Results * (ABNORMAL) CBC W/DIFF AUTOMATED (09/05/2020 3:53 PM RESPIRATORY CARE INSTRUCTOR) WBC 7.6 4.4 - 11.0 x10'3/uL 09/05/2020 5:47 PM RESPIRATORY CARE INSTRUCTOR [facility] RBC 4.01(L) 4.50 - 5.10 x10'6/uL 09/05/2020 5:47 PM [facility] HGB 12.2(L) 12.3 - 15.3 G/DL 09/05/2020 5:47 PM [facility] HCT 37.2 35.9 - 44.6 % 09/05/2020 5:47 PM [facility] MCV 92.8 80.0 - 96.0 FL 09/05/2020 5:47 PM [facility] MCH 30.4 25.3 - 30.9 PG 09/05/2020 5:47 PM [facility] MCHC 32.8 31.0 - 34.1 G/DL 09/05/2020 5:47 PM [facility] RDW 14.6 12.4 - 15.1 % 09/05/2020 5:47 PM [facility] PLT 263 151 - 353 x10'3/uL 09/05/2020 5:47 PM [facility] MPV 11.2 9.6 - 12.0 FL 09/05/2020 5:47 PM [facility] RBC MORPHOLOGY NORMAL 09/05/2020 5:47 PM [facility] PLT MORPH. NORMAL 09/05/2020 5:47 PM [facility] WBC MORPHOLOGY NORMAL 09/05/2020 5:47 PM [facility] LYMPHOCYTES % 26.1 15.8 - 45.0 % 09/05/2020 5:47 PM [facility] NEUTROPHILS % 56.6 42.1 - 71.9 % 09/05/2020 5:47 PM [facility] MONOCYTES % 9.4 5.7 - 12.5 % 09/05/2020 5:47 PM [facility] EOSINOPHILS 6.9(H) 0.0 - 5.6 % 09/05/2020 5:47 PM [facility] BASOPHILS 0.7 0.0 - 1.3 % 09/05/2020 5:47 PM [facility] ABS. NEUTROPHILS TOTAL 4.32 1.40 - 6.00 x10'3/uL 09/05/2020 5:47 PM [facility] IMMATURE GRANS % 0.3 0.0 - 0.5 % 09/05/2020 5:47 PM [facility] ABS. LYMPHOCYTES 1.99 0.80 - 4.70 x10'3/uL 09/05/2020 5:47 PM [facility] 09/05/2020 3:53 PM RESPIRATORY CARE INSTRUCTOR us Kelly Marshall GROUP TESTER LABORATORY Final Resul t [facility] [address] [place] [address], * COMPREHENSIVE METABOLIC PANEL (09/05/2020 3:53 PM RESPIRATORY CARE INSTRUCTOR) Pathologist [facility] GLUCOSE 87 70 - 99 MG/DL 09/05/2020 6:24 PM [facility] BUN 18 7 - 18 MG/DL 09/05/2020 6:24 PM [facility] CREATININE S/P/B 0.74 0.55 - 1.02 MG/DL 09/05/2020 6:24 PM [facility] SODIUM S/P/B 138 136 - 145 MMOL/L 09/05/2020 6:24 PM [facility] POTASSIUM S/P/B 4.1 3.5 - 5.1 MMOL/L 09/05/2020 6:24 PM [facility] CHLORIDE S/P/B 101 100 - 108 MMOL/L 09/05/2020 6:24 PM [facility] CO2 28.5 21 - 32 MMOL/L 09/05/2020 6:24 PM [facility] CALCIUM S/P/B 9.2 8.5 - 10.1 MG/DL 09/05/2020 6:24 PM [facility] BILIRUBIN TOTAL S/P/B 0.3 0.2 - 1.2 MG/DL 09/05/2020 6:24 PM [facility] TOTAL PROTEIN S/P/B 6.6 6.4 - 8.2 G/DL 09/05/2020 6:24 PM [facility] ALBUMIN S/P/B 3.6 3.4 - 5.0 G/DL 09/05/2020 6:24 PM [facility] AST 32 15 - 37 U/L 09/05/2020 6:24 PM [facility] ALT 38 14 - 55 U/L 09/05/2020 6:24 PM [facility] ALKALINE PHOSPHATASE S/P/B 88 50 - 136 U/L 09/05/2020 6:24 PM [facility] ANION GAP 8.5 5 - 15 MMOL/L 09/05/2020 6:24 PM [facility] BUN CREATININE RATIO 24.3 6 - 26 09/05/2020 6:24 PM [facility] A/G RATIO 1.2 1.0 - 2.0 RATIO 09/05/2020 6:24 PM [facility] EGFR NON-AFR. AMER. >90 >90 ML/MIN/1.7 3 M2 09/05/2020 6:24 PM [facility] EGFR AFR. AMER. >90 >90 ML/MIN/1.7 3 M2 09/05/2020 6:24 PM [facility] Comment: NOTE: eGFR is not calculated for patients <18 years of age. This is an estimated GFR (CKD EPI) and should not be used for calculating drug doses. 09/05/2020 3:53 PM RESPIRATORY CARE INSTRUCTOR us Kelly Marshall GROUP TESTER LABORATORY Final Resul t [facility] [address] [place] [address], * LIPID PANEL (09/05/2020 3:53 PM RESPIRATORY CARE INSTRUCTOR) CHOLESTEROL 190 <200.0 MG/DL 09/05/2020 6:24 PM [facility] TRIGLYCERIDES 135 <150 MG/DL 09/05/2020 6:24 PM [facility] HDL 87 >40.0 MG/DL 09/05/2020 6:24 PM [facility] LDL (CALCULATED) 76 <100 MG/DL 09/06/19 6:24 PM [facility] NON HDL CHOLESTEROL 103 <130 MG/DL 09/05 6:24 PM [facility] CHOL/HDL RATIO 2.2 0.0 - 4.5 09/05/2020 6:24 PM [facility] VLDL CALCULATION 27 5 - 55 MG/DL 09/05/2020 6:24 PM [facility] LIPID INTERPRETATION 09/05/2020 6:24 PM [facility] Comment: NIH CONCENSUS REPORT RECOMMENDATIONS: ?ADULT ?CHILD ??LOW RISK: ?CHOLESTEROL ? <200 ? <170 ?TRIGLYCERIDE ?<150 ?--- ?HDL ? >=60 ?--- ?LDL ? <100 ? <110 ??BORDERLINE: ?CHOLESTEROL ? 200-239 ?? 170-199 ?TRIGLYCERIDE ?150-199 ? --- ?HDL ?40-59 ?--- ?LDL ? 100-159 ?? 110-129 ??HIGH RISK: ?CHOLESTEROL ? >=240 ?>=200 ?TRIGLYCERIDE ?>=200 ? --- ?HDL ?<40 ?--- ?LDL ? >=160 ?>=130 09/05/2020 3:53 PM RESPIRATORY CARE INSTRUCTOR us Kelly Marshall GROUP TESTER LABORATORY Final Resul t [facility] () [facility] [address] [place] [address], * TSH W/REFLEX (09/05/2020 3:53 PM RESPIRATORY CARE INSTRUCTOR) TSH 1.499 0.358 - 3.74 uIU/ML 09/05/2020 6:24 PM RESPIRATORY CARE INSTRUCTOR [facility] Comment: HIGH DOSES OF BIOTIN MAY INTERFERE WITH THIS TEST RESULT. CORRELATION TO CLINICAL HISTORY AND PRESENTATION RECOMMENDED. FREE T4 NOT INDICATED 09/05/2020 3:53 PM RESPIRATORY CARE INSTRUCTOR us Kelly Marshall GROUP TESTER LABORATORY Final Resul t [facility] [address] [place] [address], * VITAMIN D 1,25 DIHYDROXY (09/05/2020 3:53 PM RESPIRATORY CARE INSTRUCTOR) VITAMIN D 1 25 DIHYDROXY S/P/B 36 18 - 72 pg/mL 09/10/2020 9:25 AM RESPIRATORY CARE INSTRUCTOR [employer] [facility] VITAMIN D3 1 25 DIHYDROXY S/P/B 36 pg/mL 09/10/2020 9:25 AM RESPIRATORY CARE INSTRUCTOR [employer] [facility] VITAMIN D2 1 25 DIHYDROXY S/P/B <8 pg/mL 09/10/2020 9:25 AM RESPIRATORY CARE INSTRUCTOR [facility] Comment: Vitamin D3, 1,25(OH)2 indicates both endogenous production and supplementation. Vitamin D2, 1,25(OH)2 is an indicator of exogenous sources, such as diet or supplementation. ??Interpretation and therapy are based on measurement of Vitamin D,1,25(OH)2, Total. This test was developed and its analytical performance characteristics have been determined by [employer], [place], [place]. It has not been cleared or approved by the FDA. This assay has been validated pursuant to the CLIA regulations and is used for clinical purposes. Test Performed by [facility], [facility] [place], [address] [place] [address] Avinash Calderón M.D., Ph.D., Director of Laboratories , CLIA [id number] 09/05/2020 3:53 PM RESPIRATORY CARE INSTRUCTOR us Kelly Marshall GROUP TESTER LABORATORY Final Resul t [facility] [address] [place] [address], [place] [phone] documented in this encounter Visit Diagnoses Diagnosis Encounter for vitamin deficiency screening Screening for other and unspecified endocrine, nutritional, metabolic, and immunity disorders Screening for thyroid disorder Screening for hyperlipidemia Screening for lipoid disorders Screening for diabetes mellitus Screening for deficiency anemia Screening for other and unspecified deficiency anemia documented in this encounter Care Teams Coordinator Hotels Relationship Specialty Start Date End Date Geovany Auguste MD [address] [place] [address] PCP - General INTERNAL MEDICINE 04/07/20 documented as of this encounter
--- OUTSIDE RECORDS SUMMARY | 2024-07-12 05:29 | XMS_ITS | Encounter Summary ---
Author Organization [facility] Address [facility] [place], [place] [address] [place] [address] Care Team Providers Care Associate Account Executive Name Role Phone Unavailable Primary Care Provider Unavailabl e Encounter Details Date Type Department Care Team (Late st Contact Info) Description 10/31/2013 Abstract [facility] [address] [place] [address] Christina Allison, TELEPHONE CLERK [address] [address] Social History Tobacco Use Types Packs/Day Years Used Date Smoking Tobacco: Never Assessed Comments Unknown Sex and Gender Information Value Date Recorded Sex Assigned at Not on file Legal Sex Female 6:16 PM CDT Gender Identity Not on file Sexual Orientation Not on file documented as of this encounter Plan of Treatment Not on file documented as of this encounter Visit Diagnoses Diagnosis Other and unspecified superficial injuries of eye documented in this encounter
--- OUTSIDE RECORDS SUMMARY | 2024-07-12 05:29 | XMS_ITS | Encounter Summary ---
Author Organization [facility] Address [address] [place] [address]. [place], [place] [address] [place] [address] Care Team Providers Care Singing Messenger Name Role Phone Geovany Auguste MD Primary Care Provider [phone] Encounter Details Date Type Department Care Team (Late st Contact Info) Description 04/07/2020 Orders Only [facility] [address] [place], [place] [address] Delilah Gavin, EXPERIMENTAL BOX TESTER [address] [place] [address] Social History Tobacco Use Types Packs/Day Years [...] have Coronavirus / COVID-19? No / Unsure 04/07/2020 3:43 PM CDT documented as of this encounter Plan of Treatment Not on file documented as of this encounter Results * VITAMIN D, 25 OH (04/07/2020 3:50 PM CDT) VITAMIN D 25 HYDROXY S/P/B 47 30 - 100 NG/ML 04/07/2020 7:24 PM CDT [facility] () [facility] Comment: ? INTERPRETATION ? DEFICIENT ??<20 ? INSUFFICIENT 20-29 ?SUFFICIENT 30-100 04/07/2020 3:50 PM CDT Delilah Gavin EXPERIMENTAL BOX TESTER LABORATORY Final Resul t Performing Organization Address [facility] de Phone Number [facility] [address] [place] [id number], [place] [phone] * HEMOGLOBIN, GLYCOSYLATED (04/07/2020 3:50 PM CDT) HGB A1C 4.9 <5.7 % 04/08/2020 9:09 AM CDT [facility] Comment: ADA GUIDELINES 2010 5.7 TO 6.4% INCREASED RISK OF DIABETES > OR = 6.5% CONSISTENT WITH DIABETES TESTING PERFORMED AT [address] ??[address] 04/07/2020 3:50 PM CDT Delilah Gavin EXPERIMENTAL BOX TESTER LABORATORY Final Resul t Performing Organization Address [facility] de Phone Number [facility] [address] [place] [address], [place] [phone] * TSH W/REFLEX (04/07/2020 3:50 PM CDT) TSH 1.160 0.358 - 3.74 uIU/ML 04/07/2020 7:04 PM CDT [facility] Comment: HIGH DOSES OF BIOTIN MAY INTERFERE WITH THIS TEST RESULT. CORRELATION TO CLINICAL HISTORY AND PRESENTATION RECOMMENDED. FREE T4 NOT INDICATED 04/07/2020 3:50 PM CDT Delilah Gavin EXPERIMENTAL BOX TESTER LABORATORY Final Resul t Performing Organization Address [facility] de Phone Number [facility] [address] [place] [address], * LIPID PANEL (04/07/2020 3:50 PM CDT) [facility] Signature CHOLESTEROL 182 <200 MG/DL 04/07/2020 7:04 PM CDT [facility] () [facility] TRIGLYCERIDES 58 <150 MG/DL 04/07/2020 7:04 PM CDT [facility]) [facility] HDL 91 >40.0 MG/DL 04/07/2020 7:04 PM CDT [facility] LDL (CALCULATED) 79 <100 MG/DL 04/07/20 7:04 PM CDT [facility] () [facility] NON HDL CHOLESTEROL 91 <130 MG/DL 04/07 7:04 PM CDT [facility] () [facility] Comment: NOTE: WHEN THE TRIGLYCERIDES ARE >200 mg/dL, NON HDL C IS A SECONDARY TARGET OF THERAPY, WITH A GOAL 30 mg/dL HIGHER THAN THE IDENTIFIED LDL C GOAL. CHOL/HDL RATIO 2.0 0.0 - 4.5 04/07/2020 7:04 PM CDT [facility] () [facility] VLDL CALCULATION 12 5 - 55 MG/DL 04/07/2020 7:04 PM CDT [facility] LIPID INTERPRETATION 04/07/2020 7:04 PM CDT [facility] Comment: NIH CONCENSUS REPORT RECOMMENDATIONS: ?ADULT ?CHILD ??LOW RISK: ?CHOLESTEROL ? <200 ? <170 ?TRIGLYCERIDE ?<150 ?--- ?HDL ? >=60 ?--- ?LDL ? <100 ? <110 ??BORDERLINE: ?CHOLESTEROL ? 200-239 ?? 170-199 ?TRIGLYCERIDE ?150-199 ? --- ?HDL ?40-59 ?--- ?LDL ? 100-159 ?? 110-129 ??HIGH RISK: ?CHOLESTEROL ? >=240 ?>=200 ?TRIGLYCERIDE ?>=200 ? --- ?HDL ?<40 ?--- ?LDL ? >=160 ?>=130 04/07/2020 3:50 PM CDT us Delilah Gavin EXPERIMENTAL BOX TESTER LABORATORY Final Resul t Performing Organization Address City/State/[facility] Co de Phone Number [facility] [address] [place] [address], * (ABNORMAL) COMPREHENSIVE METABOLIC PANEL (04/07/2020 3:50 PM CDT) GLUCOSE 80 70 - 99 MG/DL 04/07/2020 7:04 PM CDT [facility] BUN 18 7 - 18 MG/DL 04/07/2020 7:04 PM CDT [facility] CREATININE S/P/B 0.80 0.55 - 1.02 MG/DL 04/07/2020 7:04 PM CDT [facility] SODIUM S/P/B 140 136 - 145 MMOL/L 04/07/2020 7:04 PM T [facility] POTASSIUM S/P/B 4.4 3.5 - 5.1 MMOL/L 04/07/2020 7:04 PM T [facility] CHLORIDE S/P/B 105 100 - 108 MMOL/L 04/07/2020 7:04 PM T [facility] CO2 28.1 21 - 32 MMOL/L 04/07/2020 7:04 PM T [facility] CALCIUM S/P/B 8.7 8.5 - 10.1 MG/DL 04/07/2020 7:04 PM [facility] BILIRUBIN TOTAL S/P/B 0.1(L) 0.2 - 1.2 MG/DL 04/07/2020 7:04 PM [facility] Comment: THIS ASSAY IS NOT RECOMMENDED FOR PATIENTS UNDERGOING TREATMENT WITH ELTROMBOPAG DUE TO THE POTENTIAL FOR FALSELY ELEVATED RESULTS. TOTAL PROTEIN S/P/B 7.2 6.4 - 8.2 G/DL 04/07/2020 7:04 PM [facility] ALBUMIN S/P/B 3.7 3.4 - 5.0 G/DL 04/07/2020 7:04 PM [facility] AST 25 15 - 37 U/L 04/07/2020 7:04 PM [facility] ALT 38 14 - 55 U/L 04/07/2020 7:04 PM [facility] ALKALINE PHOSPHATASE S/P/B 60 50 - 136 U/L 04/07/2020 7:04 PM [facility] ANION GAP 6.9 5 - 15 MMOL/L 04/07/2020 7:04 PM T [facility] BUN CREATININE RATIO 22.5 6 - 26 04/07/2020 7:04 PM CDT [facility] A/G RATIO 1.1 1.0 - 2.0 RATIO 04/07/2020 7:04 PM CDT [facility] EGFR NON-AFR. AMER. 87(L) >90 ML/MIN/1.7 3 M2 04/07/2020 7:04 PM CDT [facility] EGFR AFR. AMER. >90 >90 ML/MIN/1.7 3 M2 04/07/2020 7:04 PM CDT [facility] Comment: NOTE: eGFR is not calculated for patients <18 years of age. This is an estimated GFR (CKD EPI) and should not be used for calculating drug doses. 04/07/2020 3:50 PM CDT us Delilah Gavin EXPERIMENTAL BOX TESTER LABORATORY Final Resul t [facility] [address] [place] [address], [place] [phone] * (ABNORMAL) CBC W/DIFF AUTOMATED (04/07/2020 3:50 PM CDT) WBC 5.8 4.8 - 10.8 x10'3/uL 04/07/2020 6:26 PM CDT [facility] RBC 4.15 4.10 - 5.10 x10'6/uL 04/07/2020 6:26 PM CDT [facility] HGB 12.4 12.0 - 16.0 G/DL 04/07/2020 6:26 PM CDT [facility] HCT 37.6 36 - 46 % 04/07/2020 6:26 PM CDT [facility] MCV 90.6 80 - 100 FL 04/07/2020 6:26 PM CDT [facility] MCH 29.9 26.0 - 34.0 PG 04/07/2020 6:26 PM CDT [facility] MCHC 33.0 31.0 - 37.0 G/DL 04/07/2020 6:26 PM CDT [facility] RDW 16.4(H) 11.5 - 14.5 % 04/07/2020 6:26 PM CDT [facility] PLT 258 150 - 350 x10'3/uL 04/07/2020 6:26 PM CDT [facility] CBC COMMENT AUTOMATED RBC MORPHOLOGY AND PLATELET EVALUATION NORMAL 04/07/2020 6:26 PM CDT [facility] NEUTROPHILS % 52.5 50 - 70 % 04/07/2020 6:26 PM CDT [facility] LYMPHOCYTES % 29.5 18 - 42 % 04/07/2020 6:26 PM CDT [facility] MONOCYTES % 9.9 2.0 - 11.0 % 04/07/2020 6:26 PM CDT [facility] EOSINOPHILS 7.6(H) 1.0 - 3.0 % 04/07/2020 6:26 PM CDT [facility] BASOPHILS 0.5 0.0 - 1.0 % 04/07/2020 6:26 PM CDT [facility] ABS. NEUTROPHILS TOTAL 3.03 1.69 - 7.81 x10'3/uL 04/07/2020 6:26 PM CDT [facility] 04/07/2020 3:50 PM CDT us Delilah Gavin EXPERIMENTAL BOX TESTER LABORATORY Final Resul t [facility] [address] [place] [address], [place] [phone] documented in this encounter Visit Diagnoses Diagnosis Routine general medical examination at a health care facility- Primary documented in this encounter Care Teams Singing Messenger Relationship Specialty Start Date End Date Geovany Auguste MD [address] [place] [address] PCP - General INTERNAL MEDICINE 04/07/20 documented as of this encounter
--- OUTSIDE RECORDS SUMMARY | 2024-07-12 05:29 | XMS_ITS | Encounter Summary ---
Author Organization [facility] Address [address] [place] [address]. [place], [place] [address] [place] [address] Care Team Providers Care Local Coordinator Name Role Phone Geovany Auguste MD Primary Care Provider Encounter Details Date Type Department Care Team (Late st Contact Info) Description 10/28/2020 Prep for Procedure [facility] [address] [address] Natalia Plummer DO [address] [place] [address] Social History Tobacco Use Types Packs/Day Years [...] declined 10/28/2020 How often do you attend caodaism or adventism serv ices? Patient declined 10/28/2020 Do you belong to any clubs o r organizations such as caodaism groups, unions, fraternal or athletic groups, or [...] move on to questions 3-9 0 09/05/2020 [facility] Occupat ional Health - Occupational [...] documented as of this encounter Results * PRE-SURGICAL/PRE-PROCEDURE CORONAVIRUS (COVID 19) (11/01/2020 8:54 AM CDT) CORONAVIRUS SARS COV 2 PCR (RESP) NOT DETECTED NOT DETECTED 11/02/2020 6:15 PM CDT [facility] Comment: A Not Detected (negative) test result for this test means that SARS-CoV-2 RNA was not present in the specimen above the limit of detection. A negative result does not rule out the possibility of COVID-19 and should not be used as the sole basis for treatment or patient management decisions. ??If COVID-19 is still suspected, based on exposure history together with other clinical findings, re-testing should be considered in consultation with public health authorities. Laboratory test results should always be considered in the context of clinical observations and epidemiological data in making a final diagnosis and patient management decisions. This patient specimen was tested using an FDA EUA pooling method. Patient specimens with low viral loads may not be detected in sample pools due to the decreased sensitivity of pooled testing. ?? Please review the Fact Sheets and FDA authorized labeling available for health care providers and patients using the following websites: https://www.[employer]/home/Covid-19/HCP/NAAT/fact-sheet2 https://www.[employer]/home/Covid-19/Patients/NAAT/ fact-sheet2 This test has been authorized by the FDA under an Emergency Use Authorization (EUA) for use by authorized laboratories. Due to the current public health emergency, [employer] [facility] is receiving a high volume of samples from a wide variety of swabs and media for COVID-19 testing. In order to serve patients during this public health crisis, samples from appropriate clinical sources are being tested. Negative test results derived from specimens received in non-commercially manufactured viral collection and transport media, or in media and sample collection kits not yet authorized by FDA for COVID-19 testing should be cautiously evaluated and the patient potentially subjected to extra precautions such as additional clinical monitoring, including collection of an additional specimen. Methodology: ??Nucleic Acid Amplification Test (NAAT) includes RT-PCR or TMA Additional information about COVID-19 can be found at the [employer] website: www.[employer]/Covid19. Test performed at [facility] [address] ??[phone] Director: SAVANNAH GOMEZ DO,MPH FIRST TEST NO 11/01/2020 8:48 AM CDT [facility] EMPLOYED IN HEALTHCARE YES 11/01/2020 8:48 AM CDT [facility] SYMPTOMATIC DEFINED BY CDC NO 11/01/2020 8:48 AM CDT [facility] DATE OF SYMPTOM ONSET UNKNOWN 11/01/2020 9:16 AM CDT [facility] HOSPITALIZATION STATUS NO 11/01/2020 8:48 AM CDT [facility] PATIENT IN ICU NO 11/01/2020 8:48 AM CDT [facility] RESIDENT OF [facility] NO 11/01/2020 8:48 AM CDT [facility] UNKNOWN 11/01/2020 8:48 AM CDT [facility] PATIENT'S RACE AMER. / 11/01/2020 8:48 AM CDT [facility] ETHNICITY NONHISPANIC 11/01/2020 8:48 AM CDT [facility] SOURCE (QST) NASOPHARYNGEAL SWAB 11/01/2020 8:48 AM CDT [facility] NASOPHARYNGEAL SWAB / Unknown 11/01/2020 8:54 AM CDT us Natalia Elian DO MICROBIOLOGY - GENERAL ORDE RABLES Final Result [facility] [address] [place] [address], [facility] [address] [place] [address], documented in this encounter Visit Diagnoses Diagnosis Pre-op testing- Primary Preoperative examination, unspecified documented in this encounter Additional Health Concerns Infection Onset Date Last Indicated Resolved Time COVID-19 Rule Out 11/01/2020 11/01/2020 11/02/2020 6:16 PM CDT documented as of this encounter Care Teams Local Coordinator Relationship Specialty Start Date End Date Geovany Auguste MD [address] [place] [address] PCP - General INTERNAL MEDICINE 04/07/20 documented as of this encounter
--- OUTSIDE RECORDS SUMMARY | 2024-07-12 05:29 | XMS_ITS | Encounter Summary ---
Author Organization [facility] Address [address] [place] [address]. [place], [place] [address] [place] [address] Care Team Providers Care Retail Presentation Specialist Name Role Phone Geovany Auguste MD Primary Care Provider [phone] Reason for Visit * Imaging (Routine) - Closed Specialty Diagnoses / Procedures Referred By Contac t Referred To Contact RADIOLOGY Diagnoses Heavy menstrual bleeding Procedures US PELVIC NON OB COMP TA+TV US PELVIC NON OB COMP TA+TV Delilah Mcfarland WHITE SUGAR BOILER Phone: tel: fax: Referral ID Status Reason Start Date Expiration Date Visits Re quested Visits Authorized [id number] Closed 10/17/2020 11/16/2021 1 1 Encounter Details Date Type Department Care Team (Latest Contact Info) Description 10/18/2020 3:29 PM CDT - 10/18/2020 11:59 PM CDT Hospital Encounter [facility] Ultrasound [address] [place] [address] Delilah Mcfarland, WHITE SUGAR BOILER [address] [place] [address] Discharge Disposition: Home or Self Care (Routine [...] Procedure Name Priority Date/Time Associated Diagnosis Comments US PELVIC NON OB COMP TA+TV Routine 10/18/2020 4:38 PM CDT Heavy menstrual bleeding documented in this encounter Results * US PELVIC NON OB COMP TA+TV (10/18/2020 4:38 PM CDT) Anatomical Region Laterality Modality Pelvis Ultrasound 10/18/2020 4:44 PM CDT Impressions 10/18/2020 4:47 PM CDT IMPRESSION: 1. ??Small presumably uterine fibroids. 2. ??Small hypoechoic solid nodule within the cervix 8 mm in diameter, correlate with physical exam and colposcopy. 3. ??Simple appearing right ovarian cyst. 4. ??Thickened endometrial lining, follow-up in 6 weeks recommended to assess resolution unless the patient is postmenopausal in which case endometrial sampling is recommended. Referred By: DELILAH MCFARLAND Interpreted By: Daniel Henderson, 10/18/2020 4:44 PM Narrative 10/18/2020 4:47 PM CDT EXAMINATION: US PELVIC NON OB COMP TA+TV EXAM DATE: 10/18/2020 3:33 PM COMPARISON STUDIES: No previous available. CLINICAL HISTORY: ??heavy menstrual bleeding ?? . Additional history FINDINGS: Real time ultrasound examination performed by the wraparound facilitator of the pelvis through transabdominal and transvaginal approach. Images presented for interpretation demonstrate: The uterus measures 9 x 5.7 x 6.8 cm with an endometrial lining of 12 mm. Demonstrates retroverted, heterogeneous echotexture, isoechoic nodules within the myometrium, left 7 x 5 x 7 mm and on the right 23 x 21 x 20 mm probably representing fibroids. Numerous nabothian cysts identified, the largest 1.9 cm. A hypoechoic solid nodule is noted in the cervix 8 x 5 x 8 mm The right ovary measures 3.2 x 2.8 x 3.2 cm without evidence of focal lesions. Simple appearing cyst 2.9 x 1.8 x 2.7 cm. ? The left ovary measures 2.7 x 1.3 x 2.2 cm without evidence of focal lesions. Normal follicles and flow noted. ? No free fluid noted in the cul-de-sac. Procedure Note Daniel Henderson MD - 10/18/2020 EXAMINATION: US PELVIC NON OB COMP TA+TV EXAM DATE: 10/18/2020 3:33 PM COMPARISON STUDIES: No previous available. CLINICAL HISTORY: heavy menstrual bleeding . Additional history FINDINGS: Real time ultrasound examination performed by the wraparound facilitator ofthe pelvis through transabdominal and transvaginal approach. Imagespresented for interpretation demonstrate: The uterus measures 9 x 5.7 x 6.8 cm with an endometrial lining of 12mm. Demonstrates retroverted, heterogeneous echotexture, isoechoic nodules within the myometrium, left 7 x 5 x 7 mm and on the right 23 x 21 x 20mm probably representing fibroids. Numerous nabothian cysts identified, the largest 1.9 cm. A hypoechoic solid nodule is noted in the cervix 8 x 5 x8 mm The right ovary measures 3.2 x 2.8 x 3.2 cm without evidence of focal lesions. Simple appearing cyst 2.9 x 1.8 x 2.7 cm. The left ovary measures 2.7 x 1.3 x 2.2 cm without evidence of focal lesions. Normal follicles and flow noted. No free fluid noted in the cul-de-sac. IMPRESSION: 1. Small presumably uterine fibroids. 2. Small hypoechoic solid nodule within the cervix 8 mm in diameter, correlate with physical exam and colposcopy. 3. Simple appearing right ovarian cyst. 4. Thickened endometrial lining, follow-up in 6 weeks recommended to assess resolution unless the patient is postmenopausal in which case endometrial sampling is recommended. 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
--- OUTSIDE RECORDS SUMMARY | 2024-07-12 05:29 | XMS_ITS | Encounter Summary ---
Author Organization [facility] Address [address] [place] [address]. [place], [place] [address] [place] [address] Care Team Providers Care Stakeholder Manager Name Role Phone Geovany Auguste MD Primary Care Provider [phone] Encounter Details Date Type Department Care Team (Latest Contact Info) Description 10/18/2020 Travel Social History Tobacco Use Types Packs/Day [...] on filedocumented in this encounter Care Teams Stakeholder Manager Relationship Specialty Start Date End Date Geovany Auguste MD [address] [place] [address] PCP - General INTERNAL MEDICINE 04/07/20 documented as of this encounter
--- OUTSIDE RECORDS SUMMARY | 2024-07-12 05:29 | XMS_ITS | Encounter Summary ---
Author Organization [facility] Address [address] [place] [address]. [place], [place] [address] [place] [address] Care Team Providers Care Supervisor Yard Name Role Phone Geovany Auguste MD Primary Care Provider [phone] Encounter Details Date Type Department Care Team (Latest Contact Info) Description 04/07/2020 Travel Social History Tobacco Use Types Packs/Day [...] filedocumented in this encounter Care Teams Supervisor Yard Relationship Specialty Start Date End Date Geovany Auguste MD [address] [place] [address] PCP - General INTERNAL MEDICINE 04/07/20 documented as of this encounter
--- OUTSIDE RECORDS SUMMARY | 2024-07-12 05:29 | XMS_ITS | Encounter Summary ---
Author Organization [facility] Address [address] [place] [address]. [place], [place] [address] [place] [address] Care Team Providers Care Visual Basic Developer Name Role Phone Geovany Auguste MD Primary Care Provider [phone] Encounter Details Date Type Department Care Team (Latest Contact Info) Description 11/01/2020 8:48 AM CDT - 11/01/2020 11:59 PM T Hospital Encounter [facility] [address] [place] [address] Natalia Plummer DO [address] [place] [address] Discharge Disposition: Home or Self Care (Routine Discharge) Social History Tobacco Use Types Packs/Day Years Used Date Smoking Tobacco: Former Cigarettes 0.5 31 1 987 2018 Smokeless Tobacco: Never Alcohol Use Standard [...] How often do you attend mormonism or anabaptist serv ices? Patient declined 10/28/2020 Do you belong to any clubs o r organizations such as mormonism groups, unions, fraternal or athletic groups, or [...] move on to questions 3-9 0 09/05/2020 [facility] of Occupat ional Health - Occupational Stress [...] 11/04/2020 11/14/2020 documented as of this encounter Plan of Treatment Not on file documented as of this encounter Procedures Procedure Name Priority Date/Time Associated Diagnosis Comments CORONAVIRUS (COVID 19) Routine 11/01/2020 8:54 AM CDT Pre-op testing documented in this encounter Results * PRE-SURGICAL/PRE-PROCEDURE CORONAVIRUS (COVID 19) (11/01/2020 8:54 AM CDT) CORONAVIRUS SARS COV 2 PCR (RESP) NOT DETECTED NOT DETECTED 11/02/2020 6:15 PM CDT [facility] Comment: A Not Detected (negative) test result [...] providers and patients using the following websites: https://www.[employer]/home/Covid-19/HCP/NAAT/fact-sheet2 https://www.[employer]/home/Covid-19/Patients/NAAT/ fact-sheet2 This test has been authorized by the FDA under an Emergency Use Authorization (EUA) for use by authorized laboratories. Due to the current public health emergency, [facility] is receiving a high volume of samples [...] about COVID-19 can be found at the [facility] website: www.[employer]/Covid19. Test performed at [facility] [place] [address] [place], [place] ??[address] Director: SAVANNAH GOMEZ DO,MPH FIRST TEST NO 11/01/2020 8:48 AM CDT [facility] EMPLOYED IN HEALTHCARE YES 11/01/2020 8:48 AM CDT [facility] SYMPTOMATIC DEFINED BY CDC NO 11/01/2020 8:48 AM CDT [facility] DATE OF SYMPTOM ONSET UNKNOWN 11/01/2020 9:16 AM CDT [facility] HOSPITALIZATION STATUS NO 11/01/2020 8:48 AM CDT [facility] PATIENT IN ICU NO 11/01/2020 8:48 AM CDT [facility] RESIDENT OF [facility] NO 11/01/2020 8:48 AM CDT [facility] UNKNOWN 11/01/2020 8:48 AM CDT [facility] PATIENT'S RACE AMER. / 11/01/2020 8:48 AM CDT [facility] ETHNICITY NONHISPANIC 11/01/2020 8:48 AM CDT [facility] SOURCE (QST) NASOPHARYNGEAL SWAB 11/01/2020 8:48 AM CDT [facility] NASOPHARYNGEAL SWAB / Unknown 11/01/2020 8:54 AM CDT us Nataliaaida Plummer DO MICROBIOLOGY - GENERAL ORDE RABLES Final Result [facility] [address] [place] [address], [place] [phone] [facility] [address] [place] [address], [place] documented in this encounter Visit Diagnoses Diagnosis Pre-op testing Preoperative examination, unspecified documented in this encounter Additional Health Concerns Infection Onset Date Last Indicated Resolved Time COVID-19 Rule Out 11/01/2020 11/01/2020 11/02/2020 6:16 PM CDT documented as of this encounter Care Teams Visual Basic Developer Relationship Specialty Start Date End Date Geovany Auguste MD [address] [place] [address] PCP - General INTERNAL MEDICINE 04/07/20 documented as of this encounter
--- OUTSIDE RECORDS SUMMARY | 2024-07-12 05:29 | XMS_ITS | Encounter Summary ---
Author Organization [facility] Address [address] [place] [address]. [place], [place] [address] [place] [address] Care Team Providers Care Rn Telephonic Name Role Phone Geovany Auguste MD Primary Care Provider [phone] Encounter Details Date Type Department Care Team (Latest Contact Info) Description 09/01/2020 1:15 PM SHEET FED PRINTER - 09/01/2020 11:59 PM SHEET FED PRINTER Hospital Encounter [facility] [address] [place] [address] Juan Pablo Connelly MD Discharge Disposition: Home or Self Care (Routine [...] have Coronavirus / COVID-19? No / Unsure 09/01/2020 1:14 PM SHEET FED PRINTER documented as of this encounter Plan of Treatment Not on file documented as of this encounter Visit Diagnoses Diagnosis Need for prophylactic vaccination against viral disease- Primary Need for prophylactic vaccination and inoculation against other viral diseases documented in this encounter Care Teams Rn Telephonic Relationship Specialty Start Date End Date Geovany Auguste MD [address] [place] [address] PCP - General INTERNAL MEDICINE 04/07/20 documented as of this encounter
--- OUTSIDE RECORDS SUMMARY | 2024-07-12 05:29 | XMS_ITS | Encounter Summary ---
Author Organization [facility] Address [address] [place] [address]. [place], [place] [address] [place] [address] Care Team Providers Care Steam Service Inspector Name Role Phone Geovany Auguste MD Primary Care Provider [phone] Reason for Visit * Imaging (Routine) - Closed Specialty Diagnoses / Procedures Referred By Contac t Referred To Contact RADIOLOGY Diagnoses Visit for screening mammogram Procedures MG SCREENING W Natalia Brand DO Phone: tel: fax: Referral ID Status Reason Start Date Expiration Date Visits Re quested Visits Authorized [id number] Closed 10/04/2022 10/05/2023 1 1 Encounter Details Date Type Department Care Team (Latest Contact Info) Description 10/05/2022 8:23 AM CDT - 10/05/2022 8:24 AM CDT Hospital Encounter [facility] Mammography [address] [place] [address] Geovany Auguste MD [address] [facility] [address] [place] [address] Discharge Disposition: Home or Self Care (Routine [...] How often do you attend christianity or zoroastrian serv ices? Patient declined 10/28/2020 Do you [...] move on to questions 3-9 0 09/05/2020 [facility] Occupat ional Health - Occupational [...] 8:44 AM CDT Visit for screening mammogram documented in this encounter Results * MG SCREENING W PAOLA ALVIN [...] BI-RADS 2 - BENIGN FINDING(S) Ordered By: NATALIA YU Interpreted By: Keon Krause DO, 10/05/2022 5:16 PM us Natalia Yu DO MAMMO Final Resul t documented in this encounter Visit Diagnoses Not on filedocumented in this encounter Care Teams Steam Service Inspector Relationship Specialty Start Date End Date Goevany Auguste MD [address] [place] [address] [place] [address] PCP - General INTERNAL MEDICINE 04/07/20 documented as of this encounter
--- OUTSIDE RECORDS SUMMARY | 2024-07-12 05:29 | XMS_ITS | Encounter Summary ---
Author Organization [facility] Address [address] [place] [address]. [place], [place] [address] [place] [address] Care Team Providers Care Wharf Labourer Name Role Phone Geovany Auguste MD Primary Care Provider [phone] Encounter Details Date Type Department Care Team (Latest Contact Info) Description 09/01/2020 Travel Social History Tobacco Use Types Packs/Day [...] COVID-19? No / Unsure 09/01/2020 1:14 PM DRAPERY SEWER HAND documented as of this encounter Plan of Treatment Not on file documented as of this encounter Visit Diagnoses Not on filedocumented in this encounter Care Teams Wharf Labourer Relationship Specialty Start Date End Date Geovany Auguste MD [address] [place] [address] PCP - General INTERNAL MEDICINE 04/07/20 documented as of this encounter
--- OUTSIDE RECORDS SUMMARY | 2024-07-12 05:29 | XMS_ITS | Encounter Summary ---
Author Organization [facility] Address [address] [place] [address]. [place], [place] [address] [place] [address] Care Team Providers Care Python Consultant Name Role Phone Geovany Auguste MD Primary Care Provider [phone] Encounter Details Date Type Department Care Team (Latest Contact Info) Description 04/07/2020 3:44 PM CDT - 04/07/2020 11:59 PM CDT Hospital Encounter [facility] [address] [place] [address] Delilah Gavin, NATIONAL SECRETARY [address] [place] [address] Discharge Disposition: Home or Self Care (Routine [...] Date/Time Associated Diagnosis Comments TSH W/REFLEX Routine 04/07/2020 3:50 PM CDT Routine general medical examination at a health care facility HEMOGLOBIN, GLYCOSYLATED Routine 04/07/2020 3:50 PM CDT Routine general medical examination at a health care facility COMPREHENSIVE METABOLIC PANEL Routine 04/07/2020 3:50 PM CDT Routine general medical examination at a health care facility LIPID PANEL Routine 04/07/2020 3:50 PM CDT Routine general medical examination at a [facility] care facility CBC W/DIFF AUTOMATED Routine 04/07/2020 3:50 PM CDT Routine general medical examination at a [facility] care facility VITAMIN D, 25 OH Routine 04/07/2020 3:50 PM CDT Routine general medical examination at a [facility] care facility documented in this encounter Results * VITAMIN D, 25 OH (04/07/2020 3:50 PM CDT) VITAMIN D 25 HYDROXY S/P/B 47 30 - 100 NG/ML 04/07/2020 7:24 PM CDT [facility] Comment: ? INTERPRETATION ? DEFICIENT ??<20 ? INSUFFICIENT 20-29 ?SUFFICIENT 30-100 04/07/2020 3:50 PM CDT us Delilah Gavin NATIONAL SECRETARY LABORATORY Final Resul t [facility] [address] [place] [address], * HEMOGLOBIN, GLYCOSYLATED (04/07/2020 3:50 PM CDT) HGB A1C 4.9 <5.7 % 04/08/2020 9:09 AM CDT [facility] Comment: ADA GUIDELINES 2010 5.7 TO 6.4% INCREASED RISK OF DIABETES > OR = 6.5% CONSISTENT WITH DIABETES TESTING PERFORMED AT [facility] [address] [place], [place] ??[address] 04/07/2020 3:50 PM CDT Delilah Gavin NATIONAL SECRETARY LABORATORY Final Resul t Performing Organization Address [facility]/ZIP Co de Phone Number [facility] [address] [place] [address], [place] [phone] * TSH W/REFLEX (04/07/2020 3:50 PM CDT) TSH 1.160 0.358 - 3.74 uIU/ML 04/07/2020 7:04 PM CDT [facility] Comment: HIGH DOSES OF BIOTIN MAY INTERFERE WITH THIS TEST RESULT. CORRELATION TO CLINICAL HISTORY AND PRESENTATION RECOMMENDED. FREE T4 NOT INDICATED 04/07/2020 3:50 PM CDT Delilah Gavin NATIONAL SECRETARY LABORATORY Final Resul t Performing Organization Address [facility] Co de Phone Number [facility] [address] [place] [address], [place] [phone] * LIPID PANEL (04/07/2020 3:50 PM CDT) CHOLESTEROL 182 <200 MG/DL 04/07/2020 7:04 PM CDT [facility] TRIGLYCERIDES 58 <150 MG/DL 04/07/2020 7:04 PM CDT [facility] HDL 91 >40.0 MG/DL 04/07/2020 7:04 PM CDT [facility] LDL (CALCULATED) 79 <100 MG/DL 04/07/20 20 7:04 PM CDT [facility] NON HDL CHOLESTEROL 91 <130 MG/DL 04/07 7:04 PM CDT [facility] Comment: NOTE: WHEN THE TRIGLYCERIDES ARE >200 mg/dL, NON HDL C IS A SECONDARY TARGET OF THERAPY, WITH A GOAL 30 mg/dL HIGHER THAN THE IDENTIFIED LDL C GOAL. CHOL/HDL RATIO 2.0 0.0 - 4.5 04/07/2020 7:04 PM CDT [facility] VLDL CALCULATION 12 5 - 55 MG/DL 04/07/2020 7:04 PM CDT [facility] LIPID INTERPRETATION 04/07/2020 7:04 PM CDT [facility] Comment: [...] ? >=160 ?>=130 04/07/2020 3:50 PM CDT Delilah Gavin NATIONAL SECRETARY LABORATORY Final Resul t [facility] [address] [place] [address], * (ABNORMAL) COMPREHENSIVE METABOLIC PANEL (04/07/2020 3:50 PM CDT) Pathologist [facility] GLUCOSE 80 70 - 99 MG/DL 04/07/2020 7:04 PM CDT [facility] BUN 18 7 - 18 MG/DL 04/07/2020 7:04 PM CDT [facility] CREATININE S/P/B 0.80 0.55 - 1.02 MG/DL 04/07/2020 7:04 PM CDT [facility] SODIUM S/P/B 140 136 - 145 MMOL/L 04/07/2020 7:04 PM CDT [facility] POTASSIUM S/P/B 4.4 3.5 - 5.1 MMOL/L 04/07/2020 7:04 PM CDT [facility] CHLORIDE S/P/B 105 100 - 108 MMOL/L 04/07/2020 7:04 PM CDT [facility] CO2 28.1 21 - 32 MMOL/L 04/07/2020 7:04 PM CDT [facility] CALCIUM S/P/B 8.7 8.5 - 10.1 MG/DL 04/07/2020 7:04 PM CDT [facility] BILIRUBIN TOTAL S/P/B 0.1(L) 0.2 - 1.2 MG/DL 04/07/2020 7:04 PM [facility] Comment: THIS ASSAY IS NOT RECOMMENDED FOR PATIENTS UNDERGOING TREATMENT WITH ELTROMBOPAG DUE TO THE POTENTIAL FOR FALSELY ELEVATED RESULTS. TOTAL PROTEIN S/P/B 7.2 6.4 - 8.2 G/DL 04/07/2020 7:04 PM T [facility] ALBUMIN S/P/B 3.7 3.4 - 5.0 G/DL 04/07/2020 7:04 PM [facility] AST 25 15 - 37 U/L 04/07/2020 7:04 PM [facility] ALT 38 14 - 55 U/L 04/07/2020 7:04 PM [facility] ALKALINE PHOSPHATASE S/P/B 60 50 - 136 U/L 04/07/2020 7:04 PM [facility] ANION GAP 6.9 5 - 15 MMOL/L 04/07/2020 7:04 PM [facility] BUN CREATININE RATIO 22.5 6 - 26 04/07/2020 7:04 PM [facility] A/G RATIO 1.1 1.0 - 2.0 RATIO 04/07/2020 7:04 PM [facility] EGFR NON-AFR. AMER. 87(L) >90 ML/MIN/1.7 3 M2 04/07/2020 7:04 PM [facility] EGFR AFR. AMER. >90 >90 ML/MIN/1.7 3 M2 04/07/2020 7:04 PM [facility] Comment: NOTE: eGFR is not calculated for patients <18 years of age. This is an estimated GFR (CKD EPI) and should not be used for calculating drug doses. 04/07/2020 3:50 PM CDT us Delilah Gavin NATIONAL SECRETARY LABORATORY Final Resul t [facility] [address] [place] [address], [place] [phone] * (ABNORMAL) CBC W/DIFF AUTOMATED (04/07/2020 3:50 PM CDT) WBC 5.8 4.8 - 10.8 x10'3/uL 04/07/2020 6:26 PM CDT [facility] RBC 4.15 4.10 - 5.10 x10'6/uL 04/07/2020 6:26 PM CDT [facility] HGB 12.4 12.0 - 16.0 G/DL 04/07/2020 6:26 PM CDT [facility] HCT 37.6 36 - 46 % 04/07/2020 6:26 PM CDT [facility] MCV 90.6 80 - 100 FL 04/07/2020 6:26 PM CDT [facility] MCH 29.9 26.0 - 34.0 PG 04/07/2020 6:26 PM CDT [facility] MCHC 33.0 31.0 - 37.0 G/DL 04/07/2020 6:26 PM CDT [facility] RDW 16.4(H) 11.5 - 14.5 % 04/07/2020 6:26 PM CDT [facility] PLT 258 150 - 350 x10'3/uL 04/07/2020 6:26 PM CDT [facility] CBC COMMENT AUTOMATED RBC MORPHOLOGY AND PLATELET EVALUATION NORMAL 04/07/2020 6:26 PM CDT [facility] NEUTROPHILS % 52.5 50 - 70 % 04/07/2020 6:26 PM CDT [facility] LYMPHOCYTES % 29.5 18 - 42 % 04/07/2020 6:26 PM CDT [facility] MONOCYTES % 9.9 2.0 - 11.0 % 04/07/2020 6:26 PM CDT [facility] EOSINOPHILS 7.6(H) 1.0 - 3.0 % 04/07/2020 6:26 PM CDT [facility] BASOPHILS 0.5 0.0 - 1.0 % 04/07/2020 6:26 PM CDT [facility] ABS. NEUTROPHILS TOTAL 3.03 1.69 - 7.81 x10'3/uL 04/07/2020 6:26 PM CDT [facility] 04/07/2020 3:50 PM CDT us Delilah Gavin NATIONAL SECRETARY LABORATORY Final Resul t [facility] [address] [place] [address], documented in this encounter Visit Diagnoses Diagnosis Routine general medical examination at a health care facility documented in this encounter Care Teams Python Consultant Relationship Specialty Start Date End Date Geovany Auguste MD [address] [place] [address] PCP - General INTERNAL MEDICINE 04/07/20 documented as of this encounter
--- OUTSIDE RECORDS SUMMARY | 2024-07-12 05:29 | XMS_ITS | Encounter Summary ---
Author Organization [facility] Address [address] [place] [address]. [place], [place] [address] [place] [address] Care Team Providers Care Cyber Workforce Developer And Manager Name Role Phone Geovany Auguste MD Primary Care Provider [phone] Encounter Details Date Type Department Care Team (Latest Contact Info) Description 07/28/2020 3:29 PM COST ESTIMATOR - 07/28/2020 11:59 PM COST ESTIMATOR Hospital Encounter [facility] [address] [place] [address] Juan Pablo Connelly MD Discharge Disposition: Home [...] COVID-19? No / Unsure 07/28/2020 3:26 PM COST ESTIMATOR documented as of this encounter Plan of Treatment Not on file documented as of this encounter Visit Diagnoses Diagnosis Need for prophylactic vaccination against viral disease- Primary Need for prophylactic vaccination and inoculation against other viral diseases documented in this encounter Care Teams Cyber Workforce Developer And Manager Relationship Specialty Start Date End Date Geovany Auguste MD [address] [place] [address] PCP - General INTERNAL MEDICINE 04/07/20 documented as of this encounter
--- OUTSIDE RECORDS SUMMARY | 2024-07-12 05:29 | XMS_ITS | Encounter Summary ---
Author Organization [facility] Address [address] [place] [address]. [place], [place] [address] [place] [address] Care Team Providers Care Casting Chipper Name Role Phone Geovany Auguste MD Primary Care Provider Encounter Details Date Type Department Care Team (Late st Contact Info) Description 09/12/2020 [place] Message [facility] [address] [place] [address] Kelly Marshall NP RE: Medication Questions Social History Tobacco Use Types Packs/Day Years [...] COVID-19? No / Unsure 09/05/2020 2:32 PM VIDEO EDITING INTERNSHIP documented as of this encounter Plan of Treatment Not on file documented as of this encounter Visit Diagnoses Not on filedocumented in this encounter Additional Health Concerns Infection Onset Date Last Indicated Resolved Time COVID-19 Rule Out 11/01/2020 11/01/2020 11/02/2020 6:16 PM CDT documented as of this encounter Care Teams Casting Chipper Relationship Specialty Start Date End Date Geovany Auguste MD [address] [place] [address] PCP - General INTERNAL MEDICINE 04/07/20 documented as of this encounter
--- OUTSIDE RECORDS SUMMARY | 2024-07-12 05:29 | XMS_ITS | Encounter Summary ---
Author Organization [facility] Address [address] [place] [address]. [place], [place] [address] [place] [address] Care Team Providers Care Sewer Inspector Name Role Phone Geovany Auguste MD Primary Care Provider [phone] Encounter Details Date Type Department Care Team (Late st Contact Info) Description 10/17/2020 Orders Only [facility] [address] [place], [place] [id number] Delilah Gavin, CORPORATE GIVING MANAGER [address] [place] [address] Social History Tobacco Use Types Packs/Day Years [...] documented as of this encounter Results * HEMOGLOBIN, GLYCOSYLATED (10/17/2020 3:48 PM CDT) HGB A1C 4.9 <5.7 % 10/17/2020 7:32 PM CDT [facility] Comment: ADA GUIDELINES 2010 5.7 TO 6.4% INCREASED RISK OF DIABETES > OR = 6.5% CONSISTENT WITH DIABETES TESTING PERFORMED AT [address] ??[id number] 10/17/2020 3:48 PM CDT Delilah Gavin CORPORATE GIVING MANAGER LABORATORY Final Resul t Performing Organization Address [facility] de Phone Number [facility] [address] [place] [address], [place] [phone] * LH, LUTEINIZING HORMONE (10/17/2020 3:48 PM CDT) Luteinizing Hormone 6.7 MIU/ML 10/17/2020 8:[address] [facility] Comment: REFERENCE RANGES FOR FEMALES: ??FOLLICULAR ? 2.4-12.6 ??MID-CYCLE ? 14.0-95.6 ??LUTEAL ? 1.0-11.4 ??POSTMENOPAUSAL ? 7.7-58.5 10/17/2020 3:48 PM CDT Delilah Gavin CORPORATE GIVING MANAGER LABORATORY Final Resul t Performing Organization Address [facility] Co de Phone Number [facility] [address] [place] [address], [place] [phone] * ESTRADIOL (10/17/2020 3:48 PM CDT) ESTRADIOL (E2) 55 see note pg/mL 10/21/2020 7:20 AM CDT [facility] Comment: Unable to flag abnormal [...] males, pre-pubertal children, and hypogonadal/post-menopausal females), the [facility] Estradiol, Ultrasensitive, LCMSMS assay is recommended (order code 22909). Please note: Patients being treated with the drug fulvestrant [Faslodex(R)] have demonstrated significant interference in immunoassay methods for estradiol measurement. The cross reactivity could lead to falsely elevated estradiol test results leading to an inappropriate clinical assessment of estrogen status. [employer] [place] order code [id number], Ultrasensitive LC/MS/MS demonstrates negligible cross reactivity with fulvestrant. Test Performed by [facility], [facility], [address] [place] [address] Avinash Calderón M.D., Ph.D., Director of Laboratories , [place] [id number] 10/17/2020 3:48 PM CDT us Delilah Gavin CORPORATE GIVING MANAGER LABORATORY Final Resul t [facility] [address] [place], [place] , * FSH, FOLLICLE STIM HORMONE (10/17/2020 3:48 PM CDT) FSH 19.4 MIU/ML 10/17/2020 8:[address] [facility] Comment: REFERENCE RANGES FOR FEMALES: ??FOLLICULAR ? 3.5-12.5 ??MID-CYCLE ?4.7-21.5 ??LUTEAL ? 1.7-7.7 ??POSTMENOPAUSAL ?25.8-134.8 10/17/2020 3:48 PM CDT Delilah Gavin CORPORATE GIVING MANAGER LABORATORY Final Resul t Performing Organization Address [facility] Co de Phone Number [facility] [address] [place] [address], * PROLACTIN (10/17/2020 3:48 PM CDT) PROLACTIN 11.8 NG/ML 10/17/2020 8:[address] [facility] Comment:FEMALE REFERENCE RAN GE (NON-): 4.8-23.3 10/17/2020 3:48 PM CDT Delilah Gavin CORPORATE GIVING MANAGER LABORATORY Final Resul t Performing Organization Address [facility]/ZIP Co de Phone Number [facility] [address] [place] [address], [place] [phone] * TSH W/REFLEX (10/17/2020 3:48 PM CDT) TSH 1.527 0.358 - 3.74 uIU/ML 10/17/2020 4:58 PM CDT [facility] Comment: HIGH DOSES OF BIOTIN MAY INTERFERE WITH THIS TEST RESULT. CORRELATION TO CLINICAL HISTORY AND PRESENTATION RECOMMENDED. FREE T4 NOT INDICATED 10/17/2020 3:48 PM CDT us Delilah Gavin CORPORATE GIVING MANAGER LABORATORY Final Resul t [facility] [address] [place] [address], * (ABNORMAL) CBC W/DIFF AUTOMATED (10/17/2020 3:48 PM CDT) WBC 5.8 4.8 - 10.8 x10'3/uL 10/17/2020 4:23 PM CDT [facility] RBC 3.57(L) 4.10 - 5.10 x10'6/uL 10/17/2020 4:23 PM CDT [facility] HGB 10.7(L) 12.0 - 16.0 G/DL 10/17/2020 4:23 PM CDT [facility] HCT 33.3(L) 36 - 46 % 10/17/2020 4:23 PM CDT [facility] MCV 93.3 80 - 100 FL 10/17/2020 4:23 PM CDT [facility] MCH 30.0 26.0 - 34.0 PG 10/17/2020 4:23 PM CDT [facility] MCHC 32.1 31.0 - 37.0 G/DL 10/17/2020 4:23 PM CDT [facility] RDW 15.1(H) 11.5 - 14.5 % 10/17/2020 4:23 PM CDT [facility] PLT 278 150 - 350 x10'3/uL 10/17/2020 4:23 PM CDT [facility] CBC COMMENT AUTOMATED RBC MORPHOLOGY AND PLATELET EVALUATION NORMAL 10/17/2020 4:23 PM CDT [facility] NEUTROPHILS % 52.0 50 - 70 % 10/17/2020 4:23 PM CDT [facility] LYMPHOCYTES % 28.8 18 - 42 % 10/17/2020 4:23 PM CDT [facility] MONOCYTES % 8.9 2.0 - 11.0 % 10/17/2020 4:23 PM CDT [facility] EOSINOPHILS 9.4(H) 1.0 - 3.0 % 10/17/2020 4:23 PM CDT [facility] BASOPHILS 0.9 0.0 - 1.0 % 10/17/2020 4:23 PM CDT [facility] ABS. NEUTROPHILS TOTAL 3.03 1.69 - 7.81 x10'3/uL 10/17/2020 4:23 PM CDT [facility] 10/17/2020 3:48 PM CDT us Delilah Gavin CORPORATE GIVING MANAGER LABORATORY Final Resul t [facility] [address] [place] [address], * HCG QUANT (SERUM)-CHORIONIC GONADOTROPIN (10/17/2020 3:48 PM CDT) HCG QUANTITATIVE <1 MIU/ML 10/18/19 4:58 PM CDT [facility] Comment: WEEKS OF ? REFERENCE [...] 10/17/2020 3:48 PM CDT us Delilah Gavin CORPORATE GIVING MANAGER LABORATORY Final Resul t Performing Organization Address City/State/[facility] Co de Phone Number [facility] [address] [place] [address], documented in this encounter Visit Diagnoses Diagnosis Excessive or frequent menstruation- Primary documented in this encounter Care Teams Sewer Inspector Relationship Specialty Start Date End Date Geovany Auguste MD [address] [place] [address] PCP - General INTERNAL MEDICINE 04/07/20 documented as of this encounter
--- OUTSIDE RECORDS SUMMARY | 2024-07-12 05:29 | XMS_ITS | Encounter Summary ---
Author Organization [facility] Address [address] [place] [address]. [place], [place] [address] [place] [address] Care Team Providers Care Driller And Broacher Name Role Phone Geovany Auguste MD Primary Care Provider Reason for Visit * Reason Comments Pap Smear (SCAN) Encounter Details Date Type Department Care Team ([facility] Contact Info) Description 03/03/2014 Scan HEALTH INFO SRVCS Scanned, Documents Pap Smear (SCAN) Social History Tobacco Use Types Packs/Day Years Used Date Smoking Tobacco: Never Assessed Humiliation, Afraid, Rape, and Kick questionnair e [...] declined 10/28/2020 How often do you attend anglican or muslim serv ices? Patient declined 10/28/2020 Do you belong to any clubs o r organizations such as anglican groups, unions, fraternal or athletic groups, or [...] move on to questions 3-9 0 09/05/2020 [facility] - Occupational [...] needed for daily living? No 10/28/2020 Comments Unknown Sex and Gender Information Value [...] Procedure Name Priority Date/Time Associated Diagnosis Comments OUTSIDE CYTOPATH CERV/VAG INTERPRET (PAP) (SCAN ORDER) Routine 03/03/2014 12:00 AM CDT documented in this encounter Results * PAP SMEAR (03/03/2014 12:00 AM CDT) 03/03/2014 us Documents Scanned SCANNING Final Result [facility] documented in this encounter Visit Diagnoses Not on filedocumented in this encounter Additional Health Concerns Infection Onset Date Last Indicated Resolved Time COVID-19 Rule Out 11/01/2020 11/01/2020 11/02/2020 6:16 PM CDT documented as of this encounter Care Teams Driller And Broacher Relationship Specialty Start Date End Date Geovany Auguste MD [address] [place] [address] [place] [address] PCP - General INTERNAL MEDICINE 04/07/20 documented as of this encounter
--- OUTSIDE RECORDS SUMMARY | 2024-07-12 05:29 | XMS_ITS | Encounter Summary ---
Author Organization [facility] Address [address] [place] [address]. [place], [place] [address] [place] [address] Care Team Providers Care Director Life Sales Name Role Phone Unavailable Primary Care Provider Unavailabl e Encounter Details Date Type Department Care Team (Late st Contact Info) Description 12/17/2011 Abstract [facility] [address] [place], [place] [phone] Social History Tobacco Use Types Packs/Day Years [...]
--- OUTSIDE RECORDS SUMMARY | 2024-07-12 05:29 | XMS_ITS | Encounter Summary ---
Author Organization [facility] Address [address] [place] [address]. [place], [place] [address] [place] [address] Care Team Providers Care Drug Inspector Name Role Phone Geovany Auguste MD Primary Care Provider [phone] Encounter Details Date Type Department Care Team (Latest Contact Info) Description 09/02/2020 Travel Social History Tobacco Use Types Packs/Day [...] have Coronavirus / COVID-19? No / Unsure 09/02/2020 10:49 AM TRANSPORT CONDUCTOR documented as of this encounter Plan of Treatment Not on file documented as of this encounter Visit Diagnoses Not on filedocumented in this encounter Care Teams Drug Inspector Relationship Specialty Start Date End Date Geovany Auguste MD [address] [place] [address] [place] [address] PCP - General INTERNAL MEDICINE 04/07/20 documented as of this encounter
--- OUTSIDE RECORDS SUMMARY | 2024-07-12 05:29 | XMS_ITS | Encounter Summary ---
Author Organization [facility] Address [address] [place] [address]. [place], [place] [address] [place] [address] Care Team Providers Care Product Safety Technical Assistant Name Role Phone Geovany Auguste MD Primary Care Provider [phone] Encounter Details Date Type Department Care Team (Latest Contact Info) Description 12/23/2020 Travel Social History Tobacco Use Types Packs/Day [...] How often do you attend pentecostal or restoration serv ices? Patient declined 10/28/2020 Do you [...] move on to questions 3-9 0 09/05/2020 [facility] - Occupational Stress [...] on filedocumented in this encounter Care Teams Product Safety Technical Assistant Relationship Specialty Start Date End Date Geovany Auguste MD [address] [place] [address] PCP - General INTERNAL MEDICINE 04/07/20 documented as of this encounter
--- OUTSIDE RECORDS SUMMARY | 2024-07-12 05:29 | XMS_ITS | Encounter Summary ---
Author Organization [facility] Address [address] [place] [address]. [place], [place] [id number] [place] [id number] Care Team Providers Care Service Worker Name Role Phone Geovany Auguste MD Primary Care Provider [phone] Reason for Visit * Reason Comments New Patient pt here to establish care Encounter Details Date Type Department Care Team (Late st Contact Info) Description 09/05/2020 2:40 PM [employer] Office Visit [facility] [address] [place] [address] Brooklyn Santamaria NP New Patient (pt here to establish care) Social History Tobacco Use Types Packs/Day Years [...] COVID-19? No / Unsure 09/05/2020 2:32 PM [employer] documented as of this encounter Last Filed Vital Signs Vital Sign Reading Time Taken Comments Blood Pressure 112/72 09/05/2020 2:42 PM [employer] Pulse 75 09/05/2020 2:42 PM [employer] Temperature 36.3 ??C (97.3 ??F) 09/05/2020 2:42 PM CS T Respiratory Rate 16 09/05/2020 2:42 PM [employer] Oxygen Saturation 98% 09/05/2020 2:42 PM [employer] Inhaled Oxygen Concentration - - Weight 81.7 kg (180 lb 3.2 oz) 09/05/2020 2:42 P M [employer] Height 165.1 cm (5' 5 ) 09/05/2020 2:42 PM [employer] Body Mass Index 29.99 09/05/2020 2:42 PM [employer] documented in this encounter Patient Instructions * Patient Instructions* Brooklyn Santamaria, KRISTIAN - 09/05/2020 2:40 PM [employer] Images from the original note were not included. Patient Education Patient Education Swelling The Basics Written by the doctors and editors at [facility] What is swelling???--??Swelling happens when fluid collects in small spaces around tissues and organs inside the body. Another word for swelling is edema. Some common parts of the body where peoplecan have swelling are the: ?? Lower legs or hands ?? Belly ?? Chest - Swelling can occur in the lungs or in the space around the lungs. Swelling in the legs, hands, and belly can be uncomfortable and can be a symptom of a more serious condition. Swelling in the lungs can be life-threatening, because it is usually a symptom of a serious heart problem. What are the symptoms of swelling???--??Symptoms of swelling can include: ?? Puffiness of the skin, which can cause the skin to look stretched and shiny - This often occurs with swelling in the lower legs or lower back, and can be worse after people sit or stand for a longtime (figure 1). ?? Increase in belly size (with swelling of the belly) ?? Trouble breathing (with swelling in the chest) What are the causes of swelling???--??Different conditions can cause swelling. Some of these include: ?? Problems with veins (blood vessels) in the legs - Normally, veins carry blood from the body backto the heart. But if valves in the veins do not work well, the veins cannot pump enough blood back to the heart. This can cause swelling in the lower legs. ?? Blood clots - People who have a blood clot blocking a leg vein can have swelling in the feet or ankles. ?? - women can have swelling in the hands, feet, or face. ?? Monthly periods - Women can have swelling in different parts of their body before they get theirperiod. ?? Medicines - Swelling can be a side effect of some medicines, such as medicines for diabetes, high blood pressure, or pain. ?? Kidney problems - People who have certain kidney problems can have swelling in the lower legs oraround the eyes. ?? Heart failure - Heart failure is a type of heart problem in which the heart cannot pump normally. People with heart failure can have swelling in the legs, belly, or lungs. ?? Liver problems - People who have certain liver problems can have swelling in the belly or lower legs. ?? Travel - People who sit for a long time when traveling can have swelling in the lower legs. When should I call my doctor or nurse???--??Call your doctor or nurse if you have new swelling: ?? In one or both of your legs ?? In your hands ?? In your belly ?? Around your eyes You should also call your doctor or nurse if you travel and sit for a long time, and then have leg pain or swelling that does not go away after a few days. How is swelling treated???--??Doctors can treat swelling in different ways, depending on the cause.Treatment can include 1 or more of the following: ?? Treatment for the medical condition that is causing the swelling ?? Diet changes to reduce the amount of salt in the food that you eat ?? Medicines to help your body get rid of extra fluid ?? Special socks called compression stockings - These fit tightly over the ankle and leg, and canreduce leg swelling. If your doctor or nurse recommends that you wear them, he or she will tell youwhich type to wear and how to put them on (figure 2 and figure 3 and table 1). ?? Raising the legs up - Some people can reduce swelling in the legs, ankles, and feet by raising their legs up 3 or 4 times a day for 30 minutes each time. The legs need to be raised above the levelof the heart. Not all types of swelling need treatment. For example, swelling that occurs during or before monthly periods usually does not need treatment. How can I help prevent leg swelling when I travel on long flights???--??To help prevent leg swelling on flights that are longer than 6 to 8 hours, you can: ?? Stand up and walk around every hour or 2 ?? Not smoke before traveling ?? Wear loose-fitting and comfortable clothes ?? Ask if you can sit in the bulkhead or emergency exit row ?? Point and flex your feet, and bend your knees from time to time ?? Drink plenty of fluids, and avoid drinking alcohol ?? Not take medicines such as sleeping pills that can prevent you from getting up and moving around All topics are updated as new evidence becomes available and our peer review process is complete. This topic retrieved from [employer] on: Jun 13, 2020. Topic 63806 Version 8.0 Release: 28.5.3 - C28.469 ?2019??[employer] and/or its affiliates.??All rights reserved. figure 1: Pitting edema To check for swelling, a doctor or nurse can press on the skin and then remove his or her finger. If the indent stays there, the person has swelling. Doctors call this pitting edema. Graphic 36779 Version 10.0 figure 2: Putting on compression stockings Graphic 56778 Version 3.0 figure 3: Dgau-fxgqmn-vjx method to put on compression stockings The meyv-ahbghs-gan method to put on compression stockings is as follows: 1. Turn the leg part of the stocking inside-out down to the heel (as shown in A). 2. Put your foot into the stocking, hold onto the folded edge, and pull the stocking onto your footand over the heel (as shown in B). 3. Gently work the stocking up your leg by turning it right-side out (as shown in C). Graphic 50660 Version 7.0 table 1: Tips for using compression stockings Here are tips for using compression stockings: ??? Wash new compression stockings before wearing them to reduce their stiffness and to make them easier to put on. ??? Put on stockings as early as possible in the morning after you bandage any sores you have because swelling is less in the morning. If you do not put the stockings on early, raise your legs for 20to 30 minutes before putting the stockings on. ??? When putting on stockings, sit on a chair with firm back support (not on the bed). ??? Knee-high stockings can be put on using the erys-phibjo-own method. The qiui-qfukkd-krl method to put on compression stockings is as follows: 1. Turn the leg part of the stocking inside-out down to the heel. 2. Put your foot into the stocking, hold onto the folded edge, and pull the stocking onto your footand over the heel. 3. Gently work the stocking up your leg by turning it right-side out. Some people find it helpful to wear rubber gloves to put their stockings on. This can make it easier to slide the stockings up the legs. ??? Heavy compression stockings may go on more easily if light silk pantyhose are worn under the compression stockings, or if you first put powder on your legs. ??? Skin moisturizers and treatments that are used to treat open sores can make the stockings dirtyand wear them out. Wash the stockings each day after wearing them if possible. Stockings can be washed in cold water by hand. You can also wash them with cold water and a small amount of mild detergent in a washing machine. Hang the stockings up to dry, and do not dry them in a machine. Buying at least two pairs of stockings at a time will let you wear one pair while the other pair is drying. If you have an allergy to rubber (latex), you can buy compression stockings without elastic. If you are not able to pull on your stockings, talk with your doctor or nurse. There are different stockings you can use or devices that can help you put on stockings. Graphic 01135 Version 5.0 Consumer Information Use and Disclaimer This information [...] that is right for you.The use of [employer] content is governed by the [employer] Terms of Use. ??2020 [employer]. All rights reserved. Copyright ?2020??[employer]. and/or its affiliates.??All rights reserved. Patient Education Patient Education Stool DNA Test Why is this procedure done? The lining of the large bowel sheds cells. These cells are found in the stool when you have a bowelmovement. Your doctor may want to check for specific cells in your stool. To do this, your doctor may order a stool DNA test or sDNA. This test looks for cells with changes in their DNA from cancers and possibly precancer polyps. A special stool kit will be supplied to collect the stool at home. What will the results be? ?? The doctor will look at the results of your test and what is normal. The doctor will know if youare at a higher risk for cancer in your large bowel. ?? Your doctor may order some other test, like a colonoscopy, to verify the findings. ?? The doctor will talk with you about treatment. What happens before the procedure? ?? There are no special things to do before the test. ?? You may eat and drink normally before the test. ?? Keep taking any drugs that you are taking. What happens during the procedure? ?? Your doctor will give you a kit to collect the stool sample. You may have a special container touse to collect the stool. ?? You need to collect a full bowel movement. What happens after the procedure? ?? Send the stool sample right away to the lab after the collection. Follow the directions on the kit. ?? Ask your doctor when the results will be available. Results are normally available after 3 to 6 weeks. What care is needed at home? You may do your everyday activities when you get back home. What follow-up care is needed? ?? Your doctor may ask you to make visits to the office to check on your progress. Be sure to keep these visits. ?? The doctor may ask for other tests, like a colonoscopy, to confirm your condition. Where can I learn more? Centers for Disease Control and Prevention https://www.cdc.gov/cancer/colorectal/basic_info/screening/tests.htm National Cancer [employer] https://www.cancer.gov/types/colorectal/irhzjuglu-iqam-hthdk Last Reviewed Date 2019-06-22 Consumer Information Use and Disclaimer This information [...] right for you. Copyright Copyright ?? 2020 [employer]. and its affiliates and/or licensors. All rights reserved. Patient Education Patient Education Black Cohosh What is this product used for? Black cohosh is taken by some people to help with signs of menopause, like hot flashes. What are the precautions when taking this product? ?? Always check with your doctor before you use a natural product. Some products may not mix well with drugs or other natural products. ?? This product may interfere with some lab tests. Be sure to talk with your doctor about this and all drugs you are taking. ?? Do not use this product if you are or plan to become soon. Use control you can trust while taking this product. ?? Do not use this product if you are . ?? Do not use this product if you are taking drugs for heart failure. These are drugs like captopril (Capoten), metoprolol (Lopressor), amiodarone (Cordarone), or losartan (Cozaar). ?? Take extra care if you are allergic to aspirin. ?? Take extra care and check with your doctor if you have: ? Cancer ? Liver problems ? Heart problems What should I watch for? ?? Upset stomach ?? Rash When do I need to call the doctor? ?? Signs of a very bad reaction. These include wheezing; tightness in the chest; fever; itching; bad cough; blue skin color; seizures; or swelling of face, lips, tongue, or throat. Go to the ER rightaway or call for emergency help. ?? Signs of liver problems. These include upset stomach or throwing up, belly pain, feeling tired, dark urine, yellow skin or eyes, not hungry. ?? Changes in menstrual cycle ?? Change in heart rate or pulse ?? Very bad dizziness ?? Very bad throwing up ?? Very bad belly pain ?? Very bad loose stools ?? Very bad headache Where can I learn more? National Center for Complementary and Integrative Health https://nccih.nih.gov/health/blackcohosh/ataglance.htm National Institutes of Health, Office of Dietary Supplements http://ods.od.nih.gov/factsheets/BlackCohosh-HealthProfessional/ Last Reviewed Date 2017-10-25 Consumer Information Use and Disclaimer This information is not specific medical advice and does not replace information you receive from your healthcare provider. Only your healthcare provider has the knowledge and training to provide advice that is right for you. You should not rely on this information in deciding whether or not to use, or accept your healthcare provider???s advice regarding use of, any natural products or similar treatments, therapies, or life-style choices. This information does not endorse any natural products or similar treatments, therapies, or life-style choices as safe, effective, or approved for treating any patient or health condition. This is only a brief summary of general information. It does NOT include all information about natural products, possible uses, directions, warnings, precautions, interactions, adverse effects, or risks that may apply to you. You must talk with your healthcare provider for complete information about your health and treatment options. Copyright Copyright ?? 2020 [employer]. and its affiliates and/or licensors. All rights reserved. Patient Education Patient Education Valerian What is this product used for? Valerian helps people relax. It helps lower anxiety or worry and it may help with obsessive compulsive disorder. Valerian may help some women with menstrual cramps and symptoms that go along with menopause, like hot flashes. What are the precautions when taking this product? ?? Always check with your doctor before you use a natural product. Some products may not mix well with other drugs or natural products. ?? Be sure to tell your doctor that you take this product if you are scheduled for surgery or tests. ?? Be sure to tell your doctor if you are , plan on getting , or are .You will need to talk about the benefits and risks of using this natural product. ?? Avoid beer, wine, and mixed drinks (alcohol) while taking this product. ?? This product may cause you to be sleepy. Take extra care driving and doing tasks that you need to be alert for. ?? Take extra care if you are taking drugs that make you drowsy or help you sleep. These are drugs like lorazepam (Ativan), phenobarbital (), zolpidem (Ambien), or diphenhydramine (Benadryl). ?? Take extra care and check with your doctor if you have: ? Nervous system diseases ? Seizures ? Low mood ? Liver problems What should I watch for? ?? Upset stomach ?? Feeling dizzy ?? Feeling tired ?? Feeling sleepy in the morning When do I need to call the doctor? ?? Signs of a very bad reaction. These include wheezing; tightness in the chest; fever; itching; bad cough; blue skin color; seizures; or swelling of face, lips, tongue, or throat. Go to the ER rightaway. ?? Signs of liver problems, like upset stomach or throwing up, belly pain, feeling tired, dark urine, yellow skin or eyes, not hungry. ?? Very bad throwing up ?? Very bad loose stools ?? Very bad headache ?? Not able to think clearly or change in thinking Where can I learn more? National Center for Complementary and Integrative Health https://unc health.nih.gov/health/ivory Last Reviewed Date 2018-11-13 Consumer Information Use and Disclaimer This information is not specific medical advice and does not replace information you receive from your healthcare provider. Only your healthcare provider has the knowledge and training to provide advice that is right for you. You should not rely on this information in deciding whether or not to use, or accept your healthcare provider???s advice regarding use of, any natural products or similar treatments, therapies, or life-style choices. This information does not endorse any natural products or similar treatments, therapies, or life-style choices as safe, effective, or approved for treating any patient or health condition. This is only a brief summary of general information. It does NOT include all information about natural products, possible uses, directions, warnings, precautions, interactions, adverse effects, or risks that may apply to you. You must talk with your healthcare provider for complete information about your health and treatment options. Copyright Copyright ?? 2020 [employer] and its affiliates and/or licensors. All rights reserved. L [employer] documented in this encounter Progress Notes * Brooklyn Santamaria NP - 09/05/2020 2:40 PM CST Reason for Visit: New Patient (pt here to establish care) History of Present Illness: Kendy is a 50 year old female who presents today as a new patient to establish care. She goes to [facility] for well woman exams. She voices no complaints/concerns. New Patient Pertinent negatives include no abdominal pain, anorexia, arthralgias, change in bowel habit, chest pain, chills, congestion, coughing, diaphoresis, fatigue, fever, headaches, joint swelling, myalgias, nausea, neck pain, numbness, rash, sore throat, swollen glands, urinary symptoms, vertigo, visual change, vomiting or weakness. ROS: Review of Systems Constitutional: Negative. Negative for chills, diaphoresis, fatigue and fever. HENT: Negative. Negative for congestion and sore throat. Eyes: Negative. Respiratory: Negative. Negative for cough. Cardiovascular: Positive for leg swelling. Negative for chest pain. Occasional swelling to bilateral ankles and feet after being up all day. She states the swelling improves when she puts her feet up. Gastrointestinal: Negative. Negative for abdominal pain, anorexia, change in bowel habit, nausea and vomiting. Genitourinary: Negative. Musculoskeletal: Negative. Negative for arthralgias, joint swelling, myalgias and neck pain. Skin: Negative. Negative for rash. Neurological: Negative. Negative for vertigo, weakness, numbness and headaches. Endo/Heme/Allergies: Negative. Psychiatric/Behavioral: Negative. Medications: No current outpatient medications on file. Allergies Allergen Reactions ??? Penicillins Hives History reviewed. No pertinent past medical history. Past Surgical History: Procedure Laterality Date ??? DELIVERY ONLY 1989 ??? HERNIA REPAIR 1975 umbilical hernia Social History Socioeconomic History ??? Marital status: Spouse name: Not on file ??? Number of children: Not on file ??? Years of education: Not on file ??? Highest education level: Not on file Occupational History ??? Not on file Social Needs ??? Financial resource strain: Not on file ??? Food insecurity Worry: Not on file Inability: Not on file ??? Transportation needs Medical: Not on file Non-medical: Not on file Tobacco Use ??? Smoking status: Former Smoker Packs/day: 0.50 Types: Cigarettes Start date: 1986 Quit date: 2018 Years since quittin.1 ??? Smokeless tobacco: Never Used Substance and Sexual Activity ??? Alcohol use: Yes Frequency: 2-3 times a week Drinks per session: 3 or 4 Binge frequency: Never ??? Drug use: Never ??? Sexual activity: Yes Partners: Male Lifestyle ??? Physical activity Days per week: Not on file Minutes per session: Not on file ??? Stress: Not on file Relationships ??? Social connections Talks on phone: Not on file Gets together: Not on file Attends jain service: Not on file Active member of club or organization: Not on file Attends meetings of clubs or organizations: Not on file Relationship status: Not on file ??? Intimate partner violence Fear of current or ex partner: Not on file Emotionally abused: Not on file Physically abused: Not on file Forced sexual activity: Not on file Other Topics Concern ??? Not on file Social History Narrative Lives at home with Family History Problem Relation Name Age of Onset ??? Alcohol/Drug Mother ??? No Known Problems Brother Family Status Relation Name Status ??? Mother ??? Father unknown hx, in MVA ??? Brother Alive Physical Exam Physical Exam Vitals signs and nursing note reviewed. Constitutional: General: She is awake. She is not in acute distress. Appearance: Normal appearance. She is well-developed and well-groomed. She is not ill-appearing or toxic-appearing. HENT: Head: Normocephalic and atraumatic. Right Ear: Hearing, tympanic membrane, external ear and ear canal normal. Left Ear: Hearing, tympanic membrane, external ear and ear canal normal. Nose: Nose normal. Mouth/Throat: Uvula is midline, oropharynx is clear and moist and mucous membranes are normal. Eyes: General: Lids are normal. Vision grossly intact. Right eye: No discharge. Left eye: No discharge. Extraocular Movements: Right eye: No nystagmus. Left eye: No nystagmus. Conjunctiva/sclera: Right eye: No exudate or hemorrhage. Left eye: No exudate or hemorrhage. Neck: Musculoskeletal: Full passive range of motion without pain, normal range of motion and neck supple.Normal range of motion. No injury, pain with movement, torticollis, spinous process tenderness or muscular tenderness. Thyroid: No thyroid mass, thyromegaly or thyroid tenderness. Vascular: No carotid bruit. Trachea: Trachea and phonation normal. Cardiovascular: Rate and Rhythm: Normal rate and regular rhythm. Pulses: Normal pulses. Heart sounds: Normal heart sounds, S1 normal and S2 normal. No murmur. Pulmonary: Effort: Pulmonary effort is normal. Breath sounds: Normal breath sounds and air entry. No decreased breath sounds, wheezing, rhonchi orrales. Abdominal: General: Bowel sounds are normal. There is no distension. Palpations: Abdomen is soft. Tenderness: There is no abdominal tenderness. There is no right CVA tenderness, left CVA tenderness, guarding or rebound. Musculoskeletal: Right lower leg: No edema. Left lower leg: No edema. Right foot: Normal range of motion. Left foot: Normal range of motion. Lymphadenopathy: Cervical: No cervical adenopathy. Skin: General: Skin is warm and dry. Capillary Refill: Capillary refill takes less than 2 seconds. Findings: No lesion or rash. Neurological: Mental Status: She is alert and oriented to person, place, and time. Sensory: Sensation is intact. No sensory deficit. Motor: Motor function is intact. Coordination: Coordination is intact. Gait: Gait is intact. Psychiatric: Attention and Perception: Attention and perception normal. Mood and Affect: Mood and affect normal. Speech: Speech normal. Behavior: Behavior normal. Behavior is cooperative. Thought Content: Thought content normal. Cognition and Memory: Cognition and memory normal. General Health: good Dental Health: Sees dentist regularly Vision Health: No vision correction Hearing Health: No hearing problems Immunizations Needed: Shingrix Weight: Normal BMI Physical Activity: Excersises regularly and Acitve lifestyle Reproductive Health: Perimenopause Cervical Cancer Screening: up to date Colon Cancer Screening: Due Metabolic Screening: Glucose screen: Ordered today, Lipid Profile: Ordered today and Thyroid Function Test: Ordered today Breast Cancer Screening: Ordered today PHQ-9: Over the last two weeks, how often have you been bothered by any of the following problems? 09/05/2020 LITTLE INTEREST OR PLEASURE IN DOING THINGS 0-Not at All FEELING DOWN, DEPRESSSED,OR HOPELESS 0-Not at All PHQ2 DEPRESSION TOTAL SCORE 0 Filed Vitals: 09/05/20 1442 BP: 112/72 Pulse: 75 Resp: 16 Temp: 97.3 ??F (36.3 ??C) TempSrc: Temporal SpO2: 98% Weight: 81.7 kg (180 lb 3.2 oz) Height: 5' 5 (1.651 m) Body mass index is 29.99 kg/m??. Assessment Encounter Diagnose(s) ICD-10-CM ICD-9-CM SNOMED CT(R) 1. Encounter for vitamin deficiency screening Z13.21 V77.99 PATIENT ENCOUNTER STATUS VITAMIN D 1,25DIHYDROXY VENIPUNC ARM DRAW 2. Screening for hyperlipidemia Z13.220 V77.91 PATIENT ENCOUNTER STATUS LIPID PANEL VENIPUNC ARM DRAW 3. Screening for diabetes mellitus Z13.1 V77.1 PATIENT ENCOUNTER STATUS COMPREHENSIVE METABOLIC PANEL VENIPUNC ARM DRAW 4. Screening for thyroid disorder Z13.29 V77.0 PATIENT ENCOUNTER STATUS TSH W/REFLEX VENIPUNC ARM DRAW 5. Screening for deficiency anemia Z13.0 V78.1 PATIENT ENCOUNTER STATUS CBC W/DIFF AUTOMATED VENIPUNC ARM DRAW 6. Encounter for screening mammogram for malignant neoplasm of breast Z12.31 V76.12 PATIENT ENCOUNTER STATUS MG SCREENING ALVIN DIGI 7. Screening for colon cancer Z12.11 V76.51 PATIENT ENCOUNTER STATUS NIKKIE (EXACT SCIENCE) Recommendations and Plan: 1. Encounter for vitamin deficiency screening - VITAMIN D 1,25 DIHYDROXY; Future - VENIPUNC ARM DRAW 2. Screening for hyperlipidemia - LIPID PANEL; Future - VENIPUNC ARM DRAW 3. Screening for diabetes mellitus - COMPREHENSIVE METABOLIC PANEL; Future - VENIPUNC ARM DRAW 4. Screening for thyroid disorder - TSH W/REFLEX; Future - VENIPUNC ARM DRAW 5. Screening for deficiency anemia - CBC W/DIFF AUTOMATED; Future - VENIPUNC ARM DRAW 6. Encounter for screening mammogram for malignant neoplasm of breast - MG SCREENING ALVIN DIGI 7. Screening for colon cancer - COLOGUARD (EXACT SCIENCE) Follow up yearly or sooner as needed. BROOKLYN SANTAMARIA NP 09/05/2020 L [employer] documented in this encounter Plan of Treatment Scheduled Orders Name Type Priority Associated Diagnoses Orde r Schedule MG SCREENING ALVIN DIGI MAMMO Routine Encounter For Screening Mammogram For Malignant Neoplasm Of Breast Ordered: 09/05/2020 documented as of this encounter Procedures Procedure Name Priority Date/Time Associated Diagnosis Comments COLLECTION VENOUS BLOOD VENIPUNCTURE Routine 09/05/2020 4:09 PM [employer] Encounter for vitamin deficiency screening Screening For Hyperlipidemia Screening for diabetes mellitus Screening for thyroid disorder Screening For Deficiency Anemia documented in this encounter Results * VITAMIN D 1,25 DIHYDROXY (09/05/2020 3:53 PM [employer]) VITAMIN D 1 25 DIHYDROXY S/P/B 36 18 - 72 pg/mL 09/10/2020 9:25 AM [employer] [facility] VITAMIN D3 1 25 DIHYDROXY S/P/B 36 pg/mL 09/10/2020 9:25 AM [employer] [facility] VITAMIN D2 1 25 DIHYDROXY S/P/B <8 pg/mL 09/10/2020 9:25 AM [employer] [facility] Comment: Vitamin D3, 1,25(OH)2 indicates both endogenous production and supplementation. Vitamin D2, 1,25(OH)2 is an indicator of exogenous sources, such as diet or supplementation. ??Interpretation and therapy are based on measurement of Vitamin D,1,25(OH)2, Total. This test was developed and its analytical performance characteristics have been determined by [employer], [place], [place]. It has not been cleared or approved by the FDA. This assay has been validated pursuant to the CLIA regulations and is used for clinical purposes. Test Performed by Jan Walker, [employer] [place], [address] [place], [place] Avinash Calderón M.D., Ph.D., Director of Laboratories , [facility] [id number] 09/05/2020 3:53 PM [employer] Brooklyn Santamaria NP LABORATORY Final Resul t [facility] [place] [id number] [place], [place] , [place] [phone] * TSH W/REFLEX (09/05/2020 3:53 PM [employer]) Pathologist [facility] [place] TSH 1.499 0.358 - 3.74 uIU/ML 09/05/2020 6:24 PM [employer] [facility] Comment: HIGH DOSES OF BIOTIN MAY INTERFERE WITH THIS TEST RESULT. CORRELATION TO CLINICAL HISTORY AND PRESENTATION RECOMMENDED. FREE T4 NOT INDICATED 09/05/2020 3:53 PM [employer] Brooklyn Santamaria NP LABORATORY Final Resul t [facility] [address] [place] [address], [place] [phone] * LIPID PANEL (09/05/2020 3:53 PM [employer]) CHOLESTEROL 190 <200.0 MG/DL 09/05/2020 6:24 PM [employer] [facility] TRIGLYCERIDES 135 <150 MG/DL 09/05/2020 6:24 PM [employer] [facility] HDL 87 >40.0 MG/DL 09/05/2020 6:24 PM [employer] [facility] LDL (CALCULATED) 76 <100 MG/DL 09/06/19 6:24 PM [employer] [facility] NON HDL CHOLESTEROL 103 <130 MG/DL 09/05 6:24 PM [facility] CHOL/HDL RATIO 2.2 0.0 - 4.5 09/05/2020 6:24 PM [facility] VLDL CALCULATION 27 5 - 55 MG/DL 09/05/2020 6:24 PM [facility] LIPID INTERPRETATION 09/05/2020 6:24 PM [facility] Comment: NIH CONCENSUS REPORT RECOMMENDATIONS: [...] ?LDL ? >=160 ?>=130 09/05/2020 3:53 PM [employer] us Brooklyn Santamaria BALANCING MACHINE OPERATOR LABORATORY Final Resul t [facility] [address] [place] [address], * COMPREHENSIVE METABOLIC PANEL (09/05/2020 3:53 PM [employer]) Pathologist [facility] [place] GLUCOSE 87 70 - 99 MG/DL 09/05/2020 6:24 PM [facility] BUN 18 7 - 18 MG/DL 09/05/2020 6:24 PM [facility] CREATININE S/P/B 0.74 0.55 - 1.02 MG/DL 09/05/2020 6:24 PM [facility] SODIUM S/P/B 138 136 - 145 MMOL/L 09/05/2020 6:24 PM [facility] POTASSIUM S/P/B 4.1 3.5 - 5.1 MMOL/L 09/05/2020 6:24 PM [facility] CHLORIDE S/P/B 101 100 - 108 MMOL/L 09/05/2020 6:24 PM [facility] CO2 28.5 21 - 32 MMOL/L 09/05/2020 6:24 PM [facility] CALCIUM S/P/B 9.2 8.5 - 10.1 MG/DL 09/05/2020 6:24 PM [facility] BILIRUBIN TOTAL S/P/B 0.3 0.2 - 1.2 MG/DL 09/05/2020 6:24 PM [facility] TOTAL PROTEIN S/P/B 6.6 6.4 - 8.2 G/DL 09/05/2020 6:24 PM [facility] ALBUMIN S/P/B 3.6 3.4 - 5.0 G/DL 09/05/2020 6:24 PM [facility] AST 32 15 - 37 U/L 09/05/2020 6:24 PM [facility] ALT 38 14 - 55 U/L 09/05/2020 6:24 PM [facility] ALKALINE PHOSPHATASE S/P/B 88 50 - 136 U/L 09/05/2020 6:24 PM [facility] ANION GAP 8.5 5 - 15 MMOL/L 09/05/2020 6:24 PM [facility] BUN CREATININE RATIO 24.3 6 - 26 09/05/2020 6:24 PM [facility] A/G RATIO 1.2 1.0 - 2.0 RATIO 09/05/2020 6:24 PM [facility] EGFR NON-AFR. AMER. >90 >90 ML/MIN/1.7 3 M2 09/05/2020 6:24 PM [facility] EGFR AFR. AMER. >90 >90 ML/MIN/1.7 3 M2 09/05/2020 6:24 PM [facility] Comment: NOTE: eGFR is not calculated for patients <18 years of age. This is an estimated GFR (CKD EPI) and should not be used for calculating drug doses. 09/05/2020 3:53 PM [employer] us Brooklyn Santamaria NP LABORATORY Final Resul t [facility] [address] [place] [address], [place] [phone] * (ABNORMAL) CBC W/DIFF AUTOMATED (09/05/2020 3:53 PM [employer]) [facility] WBC 7.6 4.4 - 11.0 x10'3/uL 09/05/2020 5:47 PM [facility] RBC 4.01(L) 4.50 - 5.10 x10'6/uL 09/05/2020 5:47 PM [facility] HGB 12.2(L) 12.3 - 15.3 G/DL 09/05/2020 5:47 PM [facility] HCT 37.2 35.9 - 44.6 % 09/05/2020 5:47 PM [facility] MCV 92.8 80.0 - 96.0 FL 09/05/2020 5:47 PM [facility] MCH 30.4 25.3 - 30.9 PG 09/05/2020 5:47 PM [facility] MCHC 32.8 31.0 - 34.1 G/DL 09/05/2020 5:47 PM [facility] RDW 14.6 12.4 - 15.1 % 09/05/2020 5:47 PM [facility] PLT 263 151 - 353 x10'3/uL 09/05/2020 5:47 PM [facility] MPV 11.2 9.6 - 12.0 FL 09/05/2020 5:47 PM [facility] RBC MORPHOLOGY NORMAL 09/05/2020 5:47 PM [facility] PLT MORPH. NORMAL 09/05/2020 5:47 PM [facility] WBC MORPHOLOGY NORMAL 09/05/2020 5:47 PM [facility] LYMPHOCYTES % 26.1 15.8 - 45.0 % 09/05/2020 5:47 PM [employer] [facility] NEUTROPHILS % 56.6 42.1 - 71.9 % 09/05/2020 5:47 PM [facility] MONOCYTES % 9.4 5.7 - 12.5 % 09/05/2020 5:47 PM [facility] EOSINOPHILS 6.9(H) 0.0 - 5.6 % 09/05/2020 5:47 PM [facility] BASOPHILS 0.7 0.0 - 1.3 % 09/05/2020 5:47 PM [facility] ABS. NEUTROPHILS TOTAL 4.32 1.40 - 6.00 x10'3/uL 09/05/2020 5:47 PM [facility] IMMATURE GRANS % 0.3 0.0 - 0.5 % 09/05/2020 5:47 PM [facility] ABS. LYMPHOCYTES 1.99 0.80 - 4.70 x10'3/uL 09/05/2020 5:47 PM [facility] 09/05/2020 3:53 PM [employer] us Brooklyn Santamaria NP LABORATORY Final Resul t [facility] [address] [place] [address], documented in this encounter Visit Diagnoses Diagnosis Encounter for vitamin deficiency screening- Primary Screening for other and unspecified endocrine, nutritional, metabolic, and immunity disorders Screening for hyperlipidemia Screening for lipoid disorders Screening for diabetes mellitus Screening for thyroid disorder Screening for deficiency anemia Screening for other and unspecified deficiency anemia Encounter for screening mammogram for malignant neoplasm of breast Other screening mammogram Screening for colon cancer Special screening for malignant neoplasms, colon documented in this encounter Care Teams Service Worker Relationship Specialty Start Date End Date Geovany Auguste MD [address] [place] [address] PCP - General INTERNAL MEDICINE 04/07/20 documented as of this encounter
--- OUTSIDE RECORDS SUMMARY | 2024-07-12 05:31 | XMS_ITS | Data Portability ---
Author Organization [facility] Address [address] [place] [address] Care Team Providers Care Supervisor Shipping Room Name Role Phone GURPREET SALINAS Primary Care Provider Unavailarthur e Assessment No assessment recorded. Plan of Treatment Reminders Order Date Submit Date Provider Last Modified By Organization Details Last Modified Time Details Appointments None recorded. Lab Hepatitis C IgG Ab, qual, serum 2023 024 [facility], [address] [place] [address], [facility] [address], [place], [address], 4 09:15:11 HIV 1 + 2, meaningful use set 2023 024 [facility], [address] [place] [address], [address], [place], [address], 4 09:15:12 Referral None recorded. Procedures None recorded. Surgeries None recorded. Imaging None recorded. Medication Orders None recorded. Patient TargetsNo targets recorded. Patient InstructionsNo instructions recorded. Reason for Referral None Reported. Results Created Date Observation Date Name Description Value Unit Range Abnormal Flag Note LastModifiedBy Organization Detail LastModifiedTime 05/11/20 24 05/12/2024 INTER PRETA TION: interpretati on: Commen t Not infec rafa with HCV unles s early or acute infec tion is suspe cted (whic h may be delay ed in an immun ocomp romis ed indiv idual ), or other evide nce exist s to indic ate HCV infec tion. Not Available [facility] ([facility]) [address], [place], [address], 05/12/2024 09:15:10 05/11/20 24 05/12/2024 HCV ANTIB PARIS RFX TO QUANT PCR HCV Ab NON REACTI VE nonrea ctive Not Available [facility] ([facility]) [address] [place], [address], 05/12/2024 09:15:11 05/11/20 24 05/12/2024 HIV AB/P2 4 AG WITH REFLE X HIV Ab/P24 Ag screen NON REACTI VE nonrea ctive HIV-1 /HIV- 2 antib odies and HIV-1 p24 antig en were NOT detec rafa. There is no labor atory evide nce of HIV infec tion. HIV Negat cristin Not Available [facility] ([facility]) [address] [facility], [place], [address], 05/12/2024 09:15:12 Result Notes None recorded. Medical Equipment None Reported. Allergies Allergen ID Allergen Name Allergen Category Reaction Reaction Severity Criticality Documentation Date Start Date Code Code System Note Provider Name and Address Organization Details Recorded Time 17880712 Medicinal product containin g penicilli n and acting as antibacte rial agent (product) medicatio n rash moderate low 05/11/2024 41225 05 SNOMED Gurpreet Salinas MD Attn: Accountin g,[address] [place], [address], [facility] 4 15:44:11 Vitals Date Recorded Body height Body mass index (BMI) Body weight Oxygen saturation Oxygen saturation in Arterial blood by Pulse oximetry Heart rate Systolic blood pressure Diastolic blood pressure Provider Name and Address Organization Details Last Updated DateTime 4 165.1 cm 31.2 kg/m2 33139.2 2 g 97 % 97 % 83 /min 124 mm[Hg] 82 mm[Hg] Aranza Richey MA [place] [facility] 4 09:28:15 Social History None recorded. Functional Status None recorded. Mental Status None recorded. Family History Nothing Reported. Medical History No medical history recorded. Gynecological HistoryNo gynecological history recorded. Obstetrics History GPAL:G 0 P 0 0 0 0 Immunizations Vaccine Type Date Status Note Provider Nam e and Address Organization Details Recorded Time COVID-19, mRNA, LNP-S, PF, 100 mcg/0.5mL dose or 50 mcg/0.25mL dose 07/28/2020 completed Katherine Mendoza MA null, [place] - [facility] 05/11/2024 10:12:05 COVID-19, mRNA, LNP-S, PF, 100 mcg/0.5mL dose or 50 mcg/0.25mL dose 09/01/2020 completed Katherine Mendoza [place], [place] [facility] 05/11/2024 10:12:05 COVID-19, mRNA, LNP-S, PF, 100 mcg/0.5mL dose or 50 mcg/0.25mL dose 06/27/2021 completed Katherine Mendoza [place] null, [place] - [facility] 05/11/2024 10:12:05 Past Encounters Encounter ID Performer Location Encounter Start Date Encounter Closed Date Diagnosis/Indication Diagnosis SNOMED-CT Code Diagnosis ICD10 Code Diagnosis Note [id number] [facility] [address] [address] 05/11/2024 09:14:50 05/13/2024 10:13:12 HIV screening 079437646 Z11.4 No HIV on file -Recommend HIV screening- Order HIV screening Hepatitis C screening 41 4166825 Z11.59 No hepatitis C on file -Recommend ed hepatitis C screening- Ordered hepatitis C screening Adult heal th examination 647858588 Z00.00 Patient has recent labs 10/05/2022 located in [facility] appear to be overall normal Mammogram: Reports obtaining every year to every 2 year noted mammogram in 10/05/2022, ordered via gynecology , recommende d routine follow-up Colorectal cancer screening: Reports obtaining colonoscop y via Dr. Munoz? 2023, recommende d 10-year follow-up Did ask patient to complete record release for Emergency Physician records, mammogram records, colon cancer screening records, previous PCP records Recommende d following up in [facility] 4 months Active or passive immunization 195060350 Z23 recd for pt to get the Zoster aka Shingrix vaccien at her pharmacy Administra sanna reason for encounter 318810363 Z02.9 -did complete pts wellness affidavit for her today, provided copy to pt, made copy for scan bin Health Concerns Section Related Observation LastModified by Organization Detai ls LastModified Time None Recorded Concern Status LastModified by Organization Details LastModified Time None Recorded Advance Directives Directive None Recorded Payers Encounter Date Sequence Insurance Name Policy Number Policy Rizvi Covered Member ID Rizvi Member ID Guarantor Name 05/11/2024 1 [facility] Luis York [id number] Crystal Alba Notes Date Note Type Note Provider Name and Address Organization Details Recorded Time 05/11/2024 text/html Patient 54-year- old female with no reported past medical history/established chronic diagnoses. Patient presents to clinic 05/11/2024 to establish care. Past medical history:None reported Allergies: Reports penicillin allergy when she was approximately 21-year-old reports receiving IV reports had body rash denied any facial swelling or respiratory distress Past surgical history:Umbilical hernia repair years oldC-section in the Social history:Lives in [place] lives with +2 dogs, has 1 son lives in [place], has 2 stepsons. 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 kuo Review of systems: Negative for the following: Fevers, chills, acute visual change, acute hearing change, current shortness of breath, exertional chest pain, palpitations, nausea, emesis, alteration bilaminar, alteration in urinary habits, new arthralgias, new headaches, loss of consciousness Aranza Richey MA [facility], [place] - [facility] 05/12/2024 12:39:31 OBGyn Episode No OBEpisode recorded.
--- OUTSIDE RECORDS SUMMARY | 2024-07-12 05:32 | XMS_ITS | Continuity of Care Document ---
Author Organization [facility] 4 7 Address 3 [facility] [address] [place] [address] Care Team Providers Care Oracle Programmer Name Role Phone GURPREET SALINAS Primary Care Provider Unavailabl e Assessment No assessment recorded. Plan of Treatment Reminders Order Date Submit Date Provider Last Modified By Organization Details Last Modified Time Details Appointments None recorded. Lab Hepatitis C IgG Ab, qual, serum 2023 024 [facility], [address] [place] [address], [facility] [address], [place], [address], 4 09:15:11 HIV 1 + 2, meaningful use set 2023 024 [facility], [address] [place] [address], [facility] [address], [place], [address], 4 09:15:12 Referral None recorded. Procedures None recorded. Surgeries None recorded. Imaging None recorded. Medication Orders None recorded. Patient TargetsNo targets recorded. Patient InstructionsNo instructions recorded. Reason for Referral None Reported. Medical Equipment None Reported. Allergies Allergen ID Allergen Name Allergen Category Reaction Reaction Severity Criticality Documentation Date Start Date Code Code System Note Provider Name and Address Organization Details Recorded Time 083687 Medicinal product containin g penicilli n and acting as antibacte rial agent (product) medicatio n rash moderate low 05/11/2024 28051 05 SNOMED Gurpreet Salinas MD Attn: Accountin g,[address] [facility], [place], [address], [facility] 4 15:44:11 Vitals Date Recorded Body height Body mass index (BMI) Body weight Oxygen saturation Oxygen saturation in Arterial blood by Pulse oximetry Heart rate Systolic blood pressure Diastolic blood pressure Provider Name and Address Organization Details Last Updated DateTime 4 165.1 cm 31.2 kg/m2 44918.2 2 g 97 % 97 % 83 /min 124 mm[Hg] 82 mm[Hg] JHOANA Pache[place] - [facility] 4 09:28:15 Social History None recorded. Functional [...] dose or 50 mcg/0.25mL dose 07/28/2020 completed JHOANA [place] - [facility] 05/11/2024 10:12:05 COVID-19, mRNA, LNP-S, PF, 100 mcg/0.5mL dose or 50 mcg/0.25mL dose 09/01/2020 completed JHOANA [place] - [facility] 05/11/2024 10:12:05 COVID-19, mRNA, LNP-S, PF, 100 mcg/0.5mL dose or 50 mcg/0.25mL dose 06/27/2021 completed JHOANA [place] - [facility] 05/11/2024 10:12:05 Past Encounters Encounter ID Performer Location Encounter Start Date Encounter Closed Date Diagnosis/Indication Diagnosis SNOMED-CT Code Diagnosis ICD10 Code [id number] Aranza Richey MA [facility] [address] [address] 05/11/2024 09:14:50 05/13/2024 10:13:12 HIV screening 846329910 Z11.4 Hepatitis C screening 41 2667982 Z11.59 Adult heal th examination 239513324 Z00.00 Active or passive immunization 305528765 Z23 Administra tive reason for encounter 821354061 Z02.9 Health Concerns Section Related Observation LastModified by Organization Detai ls LastModified Time None Recorded Concern Status LastModified by Organization Details LastModified Time None Recorded Payers Encounter Date Sequence Insurance Name Policy Number Policy Rizvi Covered Member ID Rizvi Member ID Guarantor Name 05/11/2024 1 [facility] Luis York [id number] Crystal Alba Notes Date Note Type Note [...] years oldC-section in the Social history:Lives in [place] lives with +2 dogs, has 1 son lives in [place], has 2 stepsons. 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 kuo Review of systems: Negative for the following: Fevers, chills, acute visual change, acute hearing change, current shortness of breath, exertional chest pain, palpitations, nausea, emesis, alteration bilaminar, alteration in urinary habits, new arthralgias, new headaches, loss of consciousness Aranza Richey MA [facility], [place] - [facility] 05/12/2024 12:39:31 OBGyn Episode No OBEpisode recorded.
== END 2024-07-05 10:46 | disposition home or self-care (01) ==
PROVIDERS: Emergency Provider Nurse Practitioner Family; PCP Internal Medicine
DX: J06.9 Acute upper respiratory infection, unspecified (principal); Z20.822 Contact with and (suspected) exposure to COVID-19; E66.9 Obesity, unspecified; Z68.29 Body mass index [BMI] 29.0-29.9, adult
CPT/HCPCS: 87426; 87804; 99213; G0463